=== PATIENT | female | born 1945 | race Caucasian/White ===

== ENCOUNTER 2020-07-03 09:05 | Emergency (ER) | payer MEDICARE, SELFPAY ==
--- NOTE | ~2020-07-03 | XR_ITS ---
EXAMINATION: XR finger 2nd LT min 2V DATE: 07/03/2020 09:34 INDICATION: Pain at the second metacarpophalangeal and proximal interphalangeal joints. TECHNIQUE: Dorsal palmar, lateral and 2 oblique views of the left second digit were obtained COMPARISON: None FINDINGS: Severe osteoarthritis with slight palmar subluxation at the second and third metacarpophalangeal join ts. There is moderate sized remote osteophytes at the heads of the second and third metacarpals which along with the atypical distribution at the second and third metacarpophalangeal joints can be seen with calcium pyrophosphate deposition (CPPD) disease. Additional advanced osteoarthritis at the first carpometacarpal joint with likely chronic slight dorsal subluxation of the first metacarpal with sec ondary remodeling at the base of the metacarpal. No fracture. Mild osteoarthritis at the triscaphe, m idcarpal, first metacarpophalangeal and second and third distal interphalangeal joints. IMPRESSION: 1. Polyarticular osteoarthritis, advanced at the first carpometacarpal joint and severe at the second and third metacarpophalangeal joints. Reviewed, dictated and finalized at location A. IMPRESSION: 1. Polyarticular osteoarthritis, advanced at the first carpometacarpal joint an d severe at the second and third metacarpophalangeal joints.
[2020-07-03 09:15] VITALS: BP 110/88; PULSE 62; RESP 18; TEMP 36.7; O2SAT 98
--- NOTE | 2020-07-03 09:20 | ED.UPPEXIN ---
HPI - Extremity Injury (Upper) General Chief Complaint: Extremity Injury, Upper Stated Complaint: pain in left pointer finger Time Seen by Provider: 07/03/20 09:37 Source: patient and RN notes reviewed Mode of arrival: ambulatory Limitations: no limitations History of Present Illness HPI narrative: 75-year-old female presents with concern for pain to the second digit of her left hand. She denies injury. Reports yesterday she was holding her phone with her hands flat when she suddenly had pain in the second digit. She reports the finger was immobile and stuck in a V position shortly after the pain started. She reports she is now able to bend her finger, however it hurts. complaint: injury to: left and finger Related Data Home Medications Medication Instructions Recorded Confirmed clonidine HCl 07/03/20 escitalopram oxalate mg 07/03/20 metoprolol succinate PO 07/03/20 omeprazole 07/03/20 rosuvastatin mg 07/03/20 tamoxifen mg 07/03/20 verapamil 07/03/20 Allergies Allergy/AdvReac Type Severity Reaction Status Date / Time morphine AdvReac Unknown Other Verified 07/03/20 09:26 NSAIDS (Non-Steroidal AdvReac Unknown Other Verified 07/03/20 09:26 Anti-Inflamma Contrast Media AdvReac Unknown Unknown Uncoded 07/03/20 09:26 Review of Systems Review of Systems: Narrative: CONSTITUTIONAL: Denies malaise, chills, sweats, or fever. CARDIOVASCULAR: Denies chest pain, palpitations, or edema. SKIN: Denies open skin MUSCULOSKELETAL: Reports pain, swelling, decreased range of motion in the second digit of the left hand NEUROLOGIC: Denies numbness, weakness. All systems reviewed & are unremarkable except as noted in HPI and below PMFSH Family History Family History (Updated 11/06/11 @ 08:47 by DOCTOR UNKNOWN) Other Family history of arthritis Family history of malignant neoplasm of urinary bladder Social History Social History Smoking status: Never smoker Alcohol intake: never Comments At time of signature, agree with nursing past medical, surgical, social and family history. There is no relevant family history pertinent to the presenting complaint Exam Narrative: Exam Narrative: GENERAL: Well-appearing, well-nourished, and in no acute distress. HEAD: Normocephalic EYES: PERRLA, conjunctivae clear NECK: Supple. CHEST: Speaks in full sentences. No respiratory distress. HEART: Regular rate and rhythm. Normal and equal peripheral pulses. EXTREMITIES: Second digit of left hand and digits of hand have normal strength and sensation. 4/5 strength with digit flexion, extension. Range of motion normal. No clubbing, cyanosis, or edema noted. No tenderness. Skin intact. Normal digital cascade with flexion of fingers, median, ulnar and radial nerve intact. Normal sensation of each side of finger. Can perform 'okay' sign, 'cross over finger test of index and middle fingers' and 'thumbs up' sign. No scissoring. Normal thumb opposition. Good capillary refill and radial pulse. Distal capillary refill <3 seconds. SKIN: Warn, dry, intact, pink. No rash NEURO: Alert and oriented x3. PSYCH: Normal mood and affect Course Course Emergency Course: Patient is aware of diagnosis, understands and agrees to treatment plan. Anticipatory guidance given. Patient agrees to follow-up as directed and is aware of reasons to seek care at the emergency department. Portions of this record may have been created with voice recognition software Vital Signs Vital signs: Vital Signs Temperature 98.1 F 07/03/20 09:15 Pulse Rate 62 07/03/20 09:15 Respiratory Rate 18 07/03/20 09:15 Blood Pressure 110/88 07/03/20 09:15 Pulse Oximetry 98 07/03/20 09:15 Temperature 98.1 F 07/03/20 09:15 Pulse Rate 62 07/03/20 09:15 Respiratory Rate 18 07/03/20 09:15 Blood Pressure 110/88 07/03/20 09:15 Pulse Oximetry 98 07/03/20 09:15 Reviewed. MDM - Extremity Injury (Upper) MDM Narrative Medical decision
--- NOTE | 2020-07-04 08:26 | ED.UPPEXIN ---
HPI - Extremity Injury (Upper) General Chief Complaint: Extremity Injury, Upper Stated Complaint: pain in left pointer finger Time Seen by Provider: 07/03/20 09:37 Source: patient and RN notes reviewed Mode of arrival: ambulatory Limitations: no limitations Related Data Home Medications Medication Instructions Recorded Confirmed clonidine HCl 0.2 mg PO BID 07/03/20 07/03/20 escitalopram oxalate 20 mg PO DAILY 07/03/20 07/03/20 metoprolol succinate 100 mg PO DAILY 07/03/20 07/03/20 omeprazole 40 mg PO DAILY 07/03/20 07/03/20 rosuvastatin 20 mg PO DAILY 07/03/20 07/03/20 tamoxifen 20 mg PO DAILY 07/03/20 07/03/20 verapamil 80 mg PO DIRECTED 07/03/20 07/03/20 Allergies Allergy/AdvReac Type Severity Reaction Status Date / Time morphine AdvReac Unknown Other Verified 07/03/20 09:26 NSAIDS (Non-Steroidal AdvReac Unknown Other Verified 07/03/20 09:26 Anti-Inflamma Contrast Media AdvReac Unknown Unknown Uncoded 07/03/20 09:26 Review of Systems Review of Systems: All systems reviewed & are unremarkable except as noted in HPI and below PMFSH Family History Family History (Updated 11/06/11 @ 08:47 by DOCTOR UNKNOWN) Other Family history of arthritis Family history of malignant neoplasm of urinary bladder Social History Social History Smoking status: Never smoker Alcohol intake: never Comments At time of signature, agree with nursing past medical, surgical, social and family history. There is no relevant family history pertinent to the presenting complaint Course Course Emergency Course: Patient is aware of diagnosis, understands and agrees to treatment plan. Anticipatory guidance given. Patient agrees to follow-up as directed and is aware of reasons to seek care at the emergency department. Portions of this record may have been created with voice recognition software Vital Signs Vital signs: Vital Signs Temperature 98.1 F 07/03/20 09:15 Pulse Rate 62 07/03/20 09:15 Respiratory Rate 18 07/03/20 09:15 Blood Pressure 110/88 07/03/20 09:15 Pulse Oximetry 98 07/03/20 09:15 Temperature 98.1 F 07/03/20 09:15 Pulse Rate 62 07/03/20 09:15 Respiratory Rate 18 08/26/20 09:15 Blood Pressure 110/88 07/03/20 09:15 Pulse Oximetry 98 07/03/20 09:15 Reviewed. Patient has been instructed to follow up with her primary care provider within the next week regarding her elevated blood pressure today. Critical Care Time Critical Care Time Critical Care Time: No Discharge Plan Discharge Clinical Impression: Osteoarthritis Patient Disposition: Home, Self-Care Condition: Stable Instructions: Osteoarthritis (ED) Additional Instructions: Avoid activities that cause pain until the pain subsides. Ice to the area 20-30 minutes 4-6 times a day Orthopedic splint as directed for comfort for the next 5-7 days Tylenol for lesser pain Follow up with your primary care provider if the condition is not improving within 1 week. If the condition worsens with numbness, tingling, decrease sensation with weakness seek treatment in the emergency room immediately. Prescriptions: No Action metoprolol succinate 100 mg tablet extended release 24 hr 100 mg PO DAILY RF: 0 omeprazole 40 mg capsule,delayed release(DR/EC) 40 mg PO DAILY RF: 0 clonidine HCl 0.2 mg tablet 0.2 mg PO BID RF: 0 verapamil 80 mg tablet 80 mg PO DIRECTED RF: 0 tamoxifen 20 mg tablet 20 mg PO DAILY RF: 0 escitalopram oxalate 20 mg tablet 20 mg PO DAILY RF: 0 rosuvastatin 20 mg tablet 20 mg PO DAILY RF: 0 Follow-up/Referrals: Phu,Hung Frazier MD [Primary Care Provider] - Time of Disposition: 09:51 Discharge Date/Time: 07/03/20 09:55
== END 2020-07-03 09:55 | disposition home or self-care (01) ==
PROVIDERS: Emergency Provider Nurse Practitioner; PCP Internal Medicine
DX: M18.12 Unilateral primary osteoarthritis of first carpometacarpal joint, left hand (principal); E78.00 Pure hypercholesterolemia, unspecified; I10 Essential (primary) hypertension; I34.1 Nonrheumatic mitral (valve) prolapse; K21.9 Gastro-esophageal reflux disease without esophagitis; Z96.652 Presence of left artificial knee joint; F41.9 Anxiety disorder, unspecified
CPT/HCPCS: 73140; 99213; G0463

== ENCOUNTER 2020-09-17 11:38 | Emergency (ER) | payer MEDICARE, SELFPAY ==
--- NOTE | ~2020-09-17 | XR_ITS ---
EXAMINATION: XR ribs LT 2V DATE: 09/17/2020 12:05 INDICATION: Left rib pain. TECHNIQUE: 3 views of the left ribs were obtained. COMPARISON: None. FINDINGS: There is no left-sided pneumonia, pleural effusion, or pneumothorax. The heart size is norm al. There is a large hiatal hernia. There is a left eighth rib fracture. IMPRESSION: 1. Age-indeterminate left eighth rib fracture. 2. Large hiatal hernia. Reviewed, dictated and finalized at location B. SOFTWARE TEST ENGINEER
[2020-09-17 11:44] VITALS: BP 106/78; PULSE 62; RESP 18; TEMP 36.2; O2SAT 100
--- NOTE | 2020-09-17 12:26 | ED.FALL ---
HPI - Fall General Chief Complaint: Fall Stated Complaint: FALL/RIB PAIN Time Seen by Provider: 09/17/20 12:14 Source: patient and RN notes reviewed Mode of arrival: ambulatory Limitations: no limitations History of Present Illness HPI Narrative: Patient presents today complaining of left anterior rib pain after she fell 1 foot down off a ladder at home 2 days ago. States she felt a pop at the time. Pain with movement. No increased pain with deep breath or coughing. Currently pain-free at rest, but pain can increase to 10/10 with movement. She took a dose of leftover Percocet at 130 this morning, which did help slightly. Denies shortness of breath or any additional symptoms. MD complaint: fall Related Data Home Medications Medication Instructions Recorded Confirmed clonidine HCl 0.2 mg PO BID 07/03/20 09/17/20 escitalopram oxalate 20 mg PO DAILY 07/03/20 09/17/20 metoprolol succinate 100 mg PO DAILY 07/03/20 09/17/20 omeprazole 40 mg PO DAILY 07/03/20 09/17/20 rosuvastatin 20 mg PO DAILY 07/03/20 09/17/20 tamoxifen 20 mg PO DAILY 07/03/20 09/17/20 verapamil 80 mg PO DIRECTED 07/03/20 09/17/20 albuterol sulfate 2 puff INHALATION Q4-6H PRN 09/17/20 09/17/20 Allergies Allergy/AdvReac Type Severity Reaction Status Date / Time morphine AdvReac Unknown Other Verified 09/17/20 11:53 NSAIDS (Non-Steroidal AdvReac Unknown Other Verified 09/17/20 11:53 Anti-Inflamma Contrast Media AdvReac Unknown Unknown Uncoded 09/17/20 11:53 Review of Systems Review of Systems: Narrative: CONSTITUTIONAL: Denies body aches, fever, chills, or sweats. EYES: Denies visual changes, redness, or discharge. ENT: Denies rhinorrhea, congestion, sore throat, or otalgia. CARDIOVASCULAR: Denies chest pain, palpitations, or edema. + Left rib pain RESPIRATORY: Denies cough or dyspnea. GASTROINTESTINAL: Denies abdominal pain, nausea, vomiting, or diarrhea. GENITOURINARY: Denies dysuria or hematuria. SKIN: Denies rash, itching, or wounds. MUSCULOSKELETAL: Denies back pain, joint pain, or myalgia. NEUROLOGIC: Denies headache, numbness, tingling, or weakness. PSYCH: Denies depression or anxiety. [facility] Past Medical History Medical History (Updated 09/17/20 @ 12:50 by Lucia Walker, [facility], ) Anxiety Arthritis Diverticulitis GERD (gastroesophageal reflux disease) Hypercholesterolemia Hypertension Mitral valve prolapse Sleep apnea Surgical History Surgical History (Updated 09/17/20 @ 12:50 by Lucia Walker, [facility], ) H/O tubal ligation History of total left knee replacement Family History Family History (Updated 11/06/11 @ 08:47 by DOCTOR UNKNOWN) Other Family history of arthritis Family history of malignant neoplasm of urinary bladder Social History Social History Smoking status: Never smoker Alcohol intake: never Comments At time of signature, I have reviewed and agree with nursing past medical, surgical, social and family history unless otherwise noted. Please see nursing chart for further information. There is no relevant family history pertinent to the presenting complaint Exam Narrative: Exam Narrative: GENERAL: Well-appearing, well-nourished, and in no acute distress. HEAD: Normocephalic, atraumatic. EYES: EOMI. No redness or drainage. Conjunctivae normal. ENT: Mucous membranes pink and moist. NECK: Normal AROM. CHEST: No respiratory distress. Clear to auscultation. Point tenderness to left anterior ribs, just under left breast. No edema or crepitus noted. HEART: Regular rate and rhythm. No murmur appreciated. Normal peripheral pulses. ABDOMEN: Soft, nontender, nondistended, normal active bowel sounds. MUSCULOSKELETAL: No bony tenderness. EXTREMITIES: Normal range of motion. No edema. SKIN: Warm, dry, no rash. Capillary refill normal. Normal skin turgor. NEURO: No focal deficits. Alert and oriented x3. Gait steady. PSYCH: Normal affect. No signs of depression or anxiety. Course Vital
== END 2020-09-17 12:35 | disposition home or self-care (01) ==
PROVIDERS: Emergency Provider Nurse Practitioner; PCP Internal Medicine
DX: S22.32XA Fracture of one rib, left side, initial encounter for closed fracture (principal); W11.XXXA Fall on and from ladder, initial encounter; F41.9 Anxiety disorder, unspecified; M19.90 Unspecified osteoarthritis, unspecified site; K21.9 Gastro-esophageal reflux disease without esophagitis; E78.00 Pure hypercholesterolemia, unspecified; I10 Essential (primary) hypertension; I34.1 Nonrheumatic mitral (valve) prolapse; G47.30 Sleep apnea, unspecified; Z96.652 Presence of left artificial knee joint
CPT/HCPCS: 71100; 99213; G0463

== ENCOUNTER → 2021-11-05 10:20 | Outpatient (CLI) | payer MEDICARE, SELFPAY ==
--- NOTE | ~2021-11-05 | XR_ITS ---
EXAMINATION: XR hip RT min 2V DATE: 11/05/2021 10:42 INDICATION: Right hip pain. TECHNIQUE: 2 views of right hip were obtained. COMPARISON: Pelvis and right hip radiographs 01/23/2021 FINDINGS: Bone alignment is normal. No fracture. There is severe right hip osteoarthritis. There is s evere lumbar spondylosis. IMPRESSION: 1. Severe right hip osteoarthritis. Reviewed, dictated and finalized at location B. TRAILER FILLER
== END ==
PROVIDERS: Visit Provider Physician Assistant
DX: M16.11 Unilateral primary osteoarthritis, right hip (principal)
CPT/HCPCS: 73502

== ENCOUNTER 2021-12-22 11:57 | Emergency (ER) | payer MEDICARE, SELFPAY ==
[2021-12-22 12:02] VITALS: BP 130/80; PULSE 60; RESP 20; TEMP 36.3; O2SAT 100
--- NOTE | 2021-12-22 12:13 | ED.EAR ---
HPI - Ear Problem General Chief complaint: Urogenital-Female Stated complaint: poss ear infection Time Seen by Provider: 12/22/21 12:14 Source: patient History of Present Illness HPI Narrative: Patient presents with right ear pain. Patient states she has a history of fluid behind her ears denies any hearing loss, no drainage from her ear no dizziness. Patient denies any other symptoms. Related Data Home Medications Medication Instructions Recorded Confirmed clonidine HCl 0.2 mg PO BID 07/03/20 12/22/21 escitalopram oxalate 20 mg PO DAILY 07/03/20 12/22/21 metoprolol succinate 100 mg PO DAILY 07/03/20 12/22/21 omeprazole 40 mg PO DAILY 07/03/20 12/22/21 rosuvastatin 20 mg PO DAILY 07/03/20 12/22/21 tamoxifen 20 mg PO DAILY 07/03/20 12/22/21 verapamil 80 mg PO DIRECTED 07/03/20 12/22/21 Allergies Allergy/AdvReac Type Severity Reaction Status Date / Time morphine AdvReac Unknown Other Verified 12/22/21 12:09 NSAIDS (Non-Steroidal AdvReac Unknown Other Verified 12/22/21 12:09 Anti-Inflamma Contrast Media AdvReac Unknown Unknown Uncoded 12/22/21 12:09 Review of Systems Review of Systems: CONSTITUTIONAL: Denies fever, chills, or sweats. EYES: Denies visual changes, redness, or discharge. ENT: Denies rhinorrhea, congestion, sore throat, or otalgia. CARDIOVASCULAR: Denies chest pain, palpitations, or edema. RESPIRATORY: Denies cough or dyspnea. GASTROINTESTINAL: Denies abdominal pain, nausea, vomiting, or diarrhea. GENITOURINARY: Denies dysuria or hematuria. SKIN: Denies rash or itching. MUSCULOSKELETAL: Denies back pain, joint pain, or myalgia. NEUROLOGIC: Denies headache, numbness, or weakness. PSYCHIATRIC: Denies anxiety or depression. [facility] Past Medical History Medical History (Updated 12/22/21 @ 12:19 by ALE Sanders) Anxiety Arthritis Arthritis of right hip Diverticulitis GERD (gastroesophageal reflux disease) Hypercholesterolemia Hypertension Mitral valve prolapse Sleep apnea Surgical History Surgical History (Updated 06/16/21 @ 11:30 by Ari Potts MD) H/O tubal ligation History of total left knee replacement Family History Family History Other Family history of arthritis Family history of malignant neoplasm of urinary bladder Social History Social History Smoking status: Never smoker Alcohol intake: never Comments At time of signature, agree with nursing past medical, surgical, social and family history. There is no relevant family history pertinent to the presenting complaint Exam Narrative: GENERAL: Well-appearing, well-nourished, and in no acute distress. HEAD: Normocephalic, atraumatic. EYES: PERRLA and EOMI. ENT: Nares clear, no rhinorrhea or epistaxis. Mucous membranes moist.right ear pain. erythema to canal bulging tn left tm intact good light reflex NECK: Supple. CHEST: Clear to auscultation. No respiratory distress. HEART: Regular rate and rhythm. No murmur heard. Normal peripheral pulses. ABDOMEN: Soft, nontender, nondistended, normal active bowel sounds. EXTREMITIES: Normal range of motion. No edema. SKIN: Warm, dry, no rash. NEURO: No focal deficits. Alert and oriented x3. Jean Coma Scale Eye Opening: Spontaneous 4 [place] Coma Scale Motor: Obeys Commands 6 [place] Coma Scale Verbal: Oriented 5 [place] Coma Scale Total 15 Course Course Level of Care: Express Care Visit Vital Signs Vital signs: Vital Signs Temperature 36.3 C L 12/22/21 12:02 Pulse Rate 60 12/22/21 12:02 Respiratory Rate 20 12/22/21 12:02 Blood Pressure 130/80 12/22/21 12:02 Pulse Oximetry 100 12/22/21 12:02 Temperature 36.3 C L 12/22/21 12:02 Pulse Rate 60 12/22/21 12:02 Respiratory Rate 20 12/22/21 12:02 Blood Pressure 130/80 12/22/21 12:02 Pulse Oximetry 100 12/22/21 12:02 Addressed elevated BP today. Today's blood
== END 2021-12-22 12:20 | disposition home or self-care (01) ==
PROVIDERS: Emergency Provider Nurse Practitioner Family; PCP Internal Medicine
DX: H66.91 Otitis media, unspecified, right ear (principal); K21.9 Gastro-esophageal reflux disease without esophagitis; E78.00 Pure hypercholesterolemia, unspecified; I10 Essential (primary) hypertension; I34.1 Nonrheumatic mitral (valve) prolapse; G47.30 Sleep apnea, unspecified; M16.11 Unilateral primary osteoarthritis, right hip; Z96.643 Presence of artificial hip joint, bilateral
CPT/HCPCS: 99213; G0463

== ENCOUNTER 2022-02-13 16:38 | Emergency (ER) | payer MEDICARE, SELFPAY ==
--- NOTE | ~2022-02-13 | CT_ITS ---
EXAMINATION: CT abdomen pelvis wo con DATE: 02/13/2022 17:11 INDICATION: Abdominal pain TECHNIQUE: Computed tomography (CT) of the abdomen and pelvis was performed without intravenous contr ast. Automated exposure control and iterative reconstruction technique were employed. The dose-length product was 1409.57 mGy-cm. COMPARISON: None FINDINGS: Mild emphysema at the lung bases. Heart size is normal. Mild atherosclerotic coronary artery calcific ation. Aortic valve calcific location. No pericardial or pleural effusion. Moderate-sized sliding-typ e hiatal hernia. Diffuse hepatic steatosis with focal sparing along the gallbladder fossa. Severe rig ht renal atrophy. Bilateral renal cysts measuring 1.6 cm on the right and 2.3 cm on the left. Pancrea s, spleen and bilateral adrenal glands are normal. There is mild to moderate scattered colonic divert iculosis with a sigmoid predominance. There is no adjacent inflammatory change to suggest diverticul itis. Small bowel and appendix are normal. Bladder is normal. The uterus is not identified and has li jaskaran been surgically resected. No free intraperitoneal gas or fluid. No pathologically enlarged abdom inal or pelvic lymphadenopathy. There is calcified atherosclerosis of the aorta and many of the other arteries. Chronic appearing T11 compression fracture with 20% anterior vertebral body height loss an d with prominent Schmorl's node at the central aspect of the superior endplate. Severe lumbar and low er thoracic spondylosis. IMPRESSION: 1. No acute intra-abdominal/pelvic process. 2. Moderate-sized sliding-type hiatal hernia. 3. Diffuse hepatic steatosis. 4. Severe right renal atrophy. 5. Diverticulosis. Reviewed, dictated and finalized at location B.
[2022-02-13 16:44] VITALS: BP 144/108; PULSE 81; RESP 18; TEMP 37.5; O2SAT 95
[2022-02-13 17:29] LABS: Basophils Absolute Auto 0.1 K/mm3 (0.0-0.1); Basophils Percent Auto 0.4 % (0.2-1.2); Eosinophils Absolute Auto 0.3 K/mm3 (0-0.3); Eosinophils Percent Auto 2.2 % (0-4.4); Hemoglobin 13.2 g/dL (12.0-15.0); Immature Granulocyte Absolute 0.03 K/mm3 (0.00-0.031); Immature Granulocyte Percent A 0.3 % (0-0.5); Lymphocytes Absolute Auto 1.03 K/mm3 (0.9-3.2); Lymphocytes Percent Auto 8.8 % (18.3-44.2); Mean Corpuscular Hemoglobin 32.7 pg (26-34); Mean Platelet Volume 8.9 fl (7.4-10.4); Monocytes Absolute Auto 0.8 K/mm3 (0.1-0.6); Monocytes Percent Auto 7.1 % (2.6-8.5); Neutrophils Absolute Auto 9.5 K/mm3 (1.3-6.7); Neutrophils Percent Auto 81.2 % (45.5-73.1); Platelet Count Result 167 k/mm3 (150-375); Red Blood Count 4.04 M/mm3 (4.2-5.4); Red Cell Distribution Width 12.9 % (11.5-14.5); White Blood Count 11.7 K/mm3 (4.5-10.0)
[2022-02-13 17:51] LABS: Add Urine Microscopic? YES; Appearance Urine Cloudy (Clear); Bacteria Urine 2+ /hpf; Bilirubin Urine Negative (Negative); Color Urine Yellow (Yellow); Glucose Urine UA Negative (Negative); Ketones Urine Trace mg/dL (Negative); Leukocyte Esterase Ur 3+ LEU/UL (Negative); Mucus Urine Rare /lpf; Nitrate Urine Positive (Negative); Protein Urine Negative (Negative); Specific Grav Ur 1.015 (1.001-1.035); Squamous Epithelial Cell Urine Many /hpf (Few); Urobilinogen Urine Negative mg/dL (<2.0); WBC Urine >75 /hpf
[2022-02-13 17:57] LABS: Blood Urine Negative (Negative)
[2022-02-13] MEDS: CEPHALEXIN 500 MG CAPSULE PO (18:15)
[2022-02-13 18:23] LABS: Alanine Aminotransferase 22 U/L (4-35); Alkaline Phosphatase 73 U/L (38-126); Anion Gap 8 mmol/L (8-16); Aspartate Amino Transferase 36 U/L (14-36); Bilirubin,Total 0.4 mg/dL (0.2-1.3); Blood Urea Nitrogen 18 mg/dL (7-17); Calcium 8.4 mg/dL (8.4-10.2); Carbon Dioxide 26 mmol/L (22-30); Chloride 105 mmol/L (98-107); Estimated CRCL calculation 49 ml/min; Estimated Glomerular Filt Rate 48; Glucose 91 mg/dL (65-110); Lipase 154 U/L (23-300); Potassium 4.1 mmol/L (3.4-5.0); Sodium 139 mmol/L (137-145)
--- NOTE | 2022-02-13 18:31 | ED.GENADULT ---
HPI - General Adult General Chief complaint: Abdominal Pain Stated complaint: impacted Time Seen by Provider: 02/13/22 16:49 History of Present Illness HPI narrative: Patient presents emergency department from home for constipation. Patient states she has not had a bowel movement for the past 4 days. States she has a feeling that she has pressure like she needs to go to the bathroom but has not had a bowel movement she denies having abdominal pain. She denies any fevers or chills nausea vomiting diarrhea or any other symptoms. States she feels like she may need an enema. She states that she does have MiraLAX at home but has not been taking it does states she has a history of hemorrhoids Related Data Home Medications Medication Instructions Recorded Confirmed clonidine HCl 0.2 mg PO BID 07/03/20 01/01/22 escitalopram oxalate 20 mg PO DAILY 07/03/20 01/01/22 metoprolol succinate 100 mg PO DAILY 07/03/20 01/01/22 omeprazole 40 mg PO DAILY 07/03/20 01/01/22 rosuvastatin 20 mg PO DAILY 07/03/20 01/01/22 tamoxifen 20 mg PO DAILY 07/03/20 01/01/22 verapamil 80 mg PO DIRECTED 07/03/20 01/01/22 Allergies Allergy/AdvReac Type Severity Reaction Status Date / Time morphine AdvReac Unknown Other Verified 12/31/21 13:36 NSAIDS (Non-Steroidal AdvReac Unknown Other Verified 12/31/21 13:36 Anti-Inflamma Contrast Media AdvReac Unknown Unknown Uncoded 12/22/21 12:09 Review of Systems Review of Systems: Gen.: Denies fevers or chills ENT: Denies congestion Respiratory: Denies shortness of breath or cough CV: Denies chest pain or palpitations GI: Denies abdominal pain nausea, emesis or diarrhea reports constipation denies burning, urgency, frequency or hematuria Musculoskeletal: Denies back pain or muscle pain Neuro: Denies numbness, tingling, weakness or focal weakness Skin: Denies rash Except as documented, all other systems reviewed and negative [facility] Past Medical History Medical History Anxiety Arthritis Arthritis of right hip Diverticulitis GERD (gastroesophageal reflux disease) Hypercholesterolemia Hypertension Mitral valve prolapse Sleep apnea Surgical History Surgical History H/O tubal ligation History of total left knee replacement Family History Family History Other Family history of arthritis Family history of malignant neoplasm of urinary bladder Social History Social History Smoking status: Never smoker Alcohol intake: never Exam Narrative: APPEARANCE: No acute distress, nontoxic, resting in bed EYES: EOMI HEENT: Normocephalic, atraumatic, OMM RESPIRATORY: No respiratory distress Clear to auscultation bilaterally with no rhonchi wheezing or rales. CARDIOVASCULAR: Regular rate and rhythm without murmurs rubs or gallops. ABDOMINAL: Soft, nontender, nondistended, no rebound or guarding Rectal: Several large hemorrhoids present with no active bleeding, minimal stool felt in rectal vault no fullness or fluctuance MUSCULOSKELETAl: Moves all extremities. No clubbing, cyanosis or edema. NEURO: Awake and alert. Following commands, speech normal, no focal deficits SKIN:: Warm, dry. No rashes lesions or abrasions PSYCHIATRIC: Normal affect/mood, Course Course Emergency Course: Reviewed with radiology no abnormality of rectum Discussed with patient results of workup and diagnosis. Discussed need for follow-up with primary care, proper use of medication, and reasons to return to the emergency department. Patient understands and agrees to current treatment plan Vital Signs Vital signs: Vital Signs Temperature 99.5 F 02/13/22 16:44 Pulse Rate 81 02/13/22 16:44 Respiratory Rate 18 02/13/22 16:44 Blood Pressure 144/108 H 02/13/22 16:44 Pulse Oximetry 95 02/13/22 16:44
== END 2022-02-13 18:50 | disposition home or self-care (01) ==
PROVIDERS: Emergency Provider Emergency Medicine; PCP Internal Medicine
DX: K59.00 Constipation, unspecified (principal); N39.0 Urinary tract infection, site not specified; K21.9 Gastro-esophageal reflux disease without esophagitis; E78.00 Pure hypercholesterolemia, unspecified; I10 Essential (primary) hypertension; I34.1 Nonrheumatic mitral (valve) prolapse; G47.30 Sleep apnea, unspecified; M16.11 Unilateral primary osteoarthritis, right hip; F41.9 Anxiety disorder, unspecified; Z96.652 Presence of left artificial knee joint; K57.90 Diverticulosis of intestine, part unspecified, without perforation or abscess without bleeding; N26.1 Atrophy of kidney (terminal); K76.0 Fatty (change of) liver, not elsewhere classified; K44.9 Diaphragmatic hernia without obstruction or gangrene
CPT/HCPCS: 36415; 74176; 80053; 81001; 83690; 85025; 87077; 87086; 87186; 99284; A9270

== ENCOUNTER → 2022-09-10 10:26 | Outpatient (CLI) | payer MEDICARE, SELFPAY ==
--- NOTE | ~2022-09-10 | XR_ITS ---
XR abdomen/kub 1V 09/10/2022 10:39 Indication: Left renal mass Procedure: KUB Comparison: No prior studies for comparison. Findings: There is fecal impaction of the colon. No evidence for bowel obstruction. No abnormal calci fications. There is severe lumbar spondylosis. No acute osseous abnormality. There is osteoarthritis of the hips, right greater than left. Impression: 1: Fecal impaction of the colon. Reviewed, dictated and finalized at location A. Impression: 1: Fecal impaction of the colon.
--- NOTE | ~2022-09-10 | CT_ITS ---
EXAMINATION: CT abdomen pelvis wo con DATE: 09/10/2022 10:53 INDICATION: Left renal mass. Status post right nephrectomy. TECHNIQUE: Computed tomography (CT) of the abdomen and pelvis was performed without intravenous contr ast (due to renal impairment). Automated exposure control and iterative reconstruction technique were employed. Exam dose: 1022.31 mGy-cm total exam DLP. COMPARISON: 09/27/2022 KUB 02/13/[address] abdomen pelvis FINDINGS: Moderate emphysema. Small calcified lateral basilar left lower lobe pulmonary granuloma. No infiltrate or consolidation at the lung bases. Normal heart size. No pericardial or pleural effusion. Moderately large sliding hiatal hernia. There is hepatic steatosis. No hepatic, splenic, pancreatic or right adrenal space-occupying mass les ion is detected. Approximately 8.2 x 11 mm stable left adrenal soft tissue mass, likely a small adenoma. There is severe right renal diffuse atrophy. 0.6 cm exophytic right renal cyst. 1 cm exophytic anterior upper pole left renal probable cyst with attenuation of 10 Hounsfield units. 1.7 cm lower pole left renal probable cyst. Examination of the kidneys is limited due to the absence of intravenous contrast material. No urinary tract calculus or hydroureteronephrosis. The urinary bladder is relatively evacuated. Status post hysterectomy. There is atherosclerotic calcification but normal caliber of the abdominal aorta and iliac arteries. No intraperitoneal or retroperitoneal or pelvic mass lesion or adenopathy or ascites. Diverticulosis of left and right colon; no CT evidence of diverticulitis. No bowel obstruction, bowel wall thickening, pneumatosis or intraperitoneal free air. Severe degenerative disc disease throughout the lumbar spine and degenerative change of the lower tho racic spine. Mild to moderate T11 anterior wedge compression fracture deformity, stable since 2 Bilateral hip osteoarthritis, particularly severe on the right. No suspicious osteolytic or osteoblas tic lesions are noted. IMPRESSION: Severe diffuse right renal atrophy Bilateral renal cysts Hepatic steatosis Status post hysterectomy Probable large hiatal hernia Diverticulosis of left and right colon; no CT evidence of diverticulitis Reviewed, dictated and finalized at [facility]. Reviewed, dictated and finalized at [facility].
== END ==
PROVIDERS: PCP Physician Assistant; Visit Provider Nurse Practitioner Adult Health
DX: N28.89 Other specified disorders of kidney and ureter (principal); N28.1 Cyst of kidney, acquired; K76.0 Fatty (change of) liver, not elsewhere classified; K57.30 Diverticulosis of large intestine without perforation or abscess without bleeding
CPT/HCPCS: 74018; 74176

== ENCOUNTER 2025-10-26 12:49 | Emergency (ER) | payer MEDICARE, SELFPAY ==
--- OUTSIDE RECORDS SUMMARY | 2025-10-25 11:00 | XMS_ITS | Encounter Summary ---
Author Organization [facility] Healthcare Address [address] [place] [address] Care Team Providers Care Music Ministries Director Name Role Phone Ismael De La Cruz Primary Care Provider Nicholas Aguilera MD Unavailable Jurgen Maldonado MD Unavailable [phone] Emma Sheridan MD Unavailable Mariela Gonzalez MD Unavailable Dejan Wood DPM Unavailable [phone] Randal Hurst MD Unavailable [phone] Lauren Warren MD Unavailable [phone] Kalpana Sepulveda MD Unavailable Reason for Visit * Consultation (Routine) - Authorized Specialty Diagnoses / Procedures Referred By Contac t Referred To Contact Neurology Diagnoses FRANCISCO (obstructive sleep apnea) Ismael De La Cruz PA 2 [facility] [address] [place] [address] Phone: tel: fax: Mariela Gonzalez MD 4 [facility] [address] CRISTIN Lackey [facility] [address] [place] [address] Phone: tel: fax: Referral ID Status Reason Start Date Expiration Date Visits Requested Visits Authorized [id number] Authorized Specialty Services Required 5 11/21/2026 4 4 Encounter Details Date Type Department Care Team (Merry st Contact Info) Description 10/25/2025 11:00 AM [employer] Office Visit [facility] [address] [facility] [address] [place] [address] Mariela Gonzalez MD 4 [facility] [address] AMARAL B LEIGHANN [address] [place] [address] FRANCISCO (obstructive sleep apnea) (Primary Dx); Hypersomnia with sleep apnea; Morbid obesity with BMI of 40.0-44.9, adult ([facility]) Social History Tobacco Use Types Packs/Day Years Used Date Smoking Tobacco: Former Cigarettes 3 48 1 960 - 2007 Smokeless Tobacco: Never Tobacco Cessation:Counseling Given: Not Answered Alcohol Use Standard Drinks/Week Comments Never 0 (1 standard drink = 0.6 oz pur e alcohol) PHQ-2 Answer Date Recorded PHQ-2 Total Score (If total score is 3 or more points, staff should administer the PHQ-9) 0 06/19/2025 AUDIT-C Answer Date Recorded Q1: How often do you have a drink containing alcohol? Never 06/19/2025 Q2: How many drinks containi ng alcohol do you have on a typical day when you are drinking? Patient does not drink Q3: How often do you have si x or more drinks on one occasion? Never 06/19/2025 Personal Safety Answer Date Recorded Have you ever been in or are you currently in a harmful physical or emotional relationship or is someone making you feel afraid or unsafe? 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 Not on file Not on file Not on file documented as of this encounter Last Filed Vital Signs Vital Sign Reading Time Taken Comments Blood Pressure 111/94 10/25/2025 11:09 AM [employer] Pulse 66 10/25/2025 11:09 AM [employer] Temperature - - Respiratory Rate - - Oxygen Saturation 95% 10/25/2025 11:09 AM [employer] Inhaled Oxygen Concentration - - Weight 120.2 kg (265 lb) 10/25/2025 11:09 AM [employer] Height 160 cm (5' 2.99) 10/25/2025 11:09 AM [employer] Body Mass Index 46.95 10/25/2025 11:09 AM [employer] documented in this encounter Progress Notes * Mariela Gonzalez MD - 10/25/2025 11:00 AM CST 1. Moderate obstructive sleep apnea syndrome: Ms. Jack presents for follow-up evaluation regarding her above condition. She is a very pleasant 79-year-old with a obstructive sleep disorder breathing on automatic positive therapy 7-12 cm. Endorses compliance with therapy. Recently her machine stopped working. She has been unable to utilize therapy for a few weeks. She finally got a new cord. Now she has gone back to utilizing therapy. She goes to bed at 8:30 a.m.-9:00 p.m. and awakens at 7:00a.m.. Awakens rested. No intolerance to pressure or mask. 2. Hypersomnia: Endorses stability symptoms.. [place] Sleepiness scale score is 3. 3. Morbid obesity: Stable weight since last visit. Physical Exam BP 111/94 Pulse 66 Ht 160 cm (5' 2.99) Wt 120.2 kg (265 lb) LMP (LMP Unknown) SpO2 95% BMI 46.95 kg/m?? Constitutional: oriented to person, place, and time. Appears well-developed and well-nourished. HENT: Head: Normocephalic and atraumatic. Mouth/Throat: Oropharynx is clear and moist. Eyes: Conjunctivae and EOM are normal. eye exhibits no discharge. No scleral icterus. Neck: Normal range of motion. Neck supple. No thyromegaly present. Cardiovascular: Normal rate, regular rhythm and normal heart sounds. Exam reveals no gallop and no friction rub. No murmur heard. Pulmonary/Chest: Effort normal and breath sounds normal. No respiratory distress. has no wheezes. has no rales. Exhibits no tenderness. Abdominal: Soft. exhibits no distension and no mass. There is no tenderness. Musculoskeletal: Normal passive range of movements; no muscle tenderness Neurological: Alert and oriented to person, place, and time. No cranial nerve deficit. Exhibits normal muscle tone. Skin: Skin is warm. No rash noted. No erythema. Psychiatric: normal mood and affect. Judgment normal. AP 1. Moderate Obstructive sleep apnea syndrome: Endorses continued compliance with positive pressure therapy. Compliance download reveals compliance and effective therapy. Advised to continue compliance therapy.. The physiology of sleep disordered breathing and its increased association with hypertension, diabetes, heart arrhythmia, strokes, heart attacks, heart failure, hypersomnia, obesity and mood disorders was discussed. Verbalizes understanding. Compliance download from 09/25/2025-10/24/2024 was reviewed. 100% usage when able to usage. Averaging 12 hours and 20 minutes of therapy. Residual 2.0. 2. Hypersomnia with sleep apnea: Stable and well controlled. Continue to monitor 3. Morbid obesity: Stable weight since last visit. The effects of obesity obstructive sleep apnea syndrome and other morbidities was discussed. Recommended diet and exercise in losing weight. Patientverbalizes an understanding. 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 Morbid obesity with BMI of 40.0-44.9, adult (HCC) documented in this encounter Discontinued Medications Medication Sig Discontinue Reason Start Date End Da te Gemtesa 75 mg tablet Take 1 tablet by mouth daily 10/20/2023 10/25/2025 documented as of this encounter Orders Outpatient Referral Count Last Ordered Date Fir st Ordered Date AMB REFERRAL TO NEUROLOGY 1 10/25/2025 documented in this encounter Care Teams Music Ministries Director Relationship Specialty Start Date End Date Ismael De La Cruz PA 2 [facility] [address] [facility] [place] [address] PCP - General Internal Medicine 07/19/22 [place] [address] [address] [facility] [address] [place] [address] Consulting Physician Pain Management 2/9/24 Jurgen Maldonado MD 2 [facility] [address] [place] [address] Consulting Physician Nephrology 04/18/24 [place] [address] [place] [address] Consulting Physician Urology 04/18/24 [place] [address] [place] [address] Consulting Physician Neurology 04/18/24 Dejan Wood DPM [address] [facility] [place] [address] Consulting Physician Orthotics 04/18/24 Randal Hurst MD [address] [facility] [place] [address] Referring Physician Hematology and Oncology 04/18/24 Lauren Warren MD [address] [facility] [address], [place] [address] Consulting Physician General Surgery 04/18/24 Kalpana Sepulveda MD [address] [place] [address] Security Public Safety Officer Obstetrics and Gynecology 04/18/24 documented as of this encounter
--- NOTE | ~2025-10-26 | XR_ITS ---
EXAMINATION: XR hand LT min 3V, 10/26/2025 13:50 MACHINE PACKAGING TECHNICIAN HISTORY: pain, bruising, swelling, fall, 2 days COMPARISON: No comparisons available. Findings: No acute fracture or malalignment. Severe degenerative changes of the distal interphalangeal joints, the second. Metacarpal phalangeal joints of the first metacarpal carpal joint with small erosions. Soft tissue swelling. Impression: No acute fracture or malalignment. Reviewed, dictated and finalized at location P. INE PACKAGING TECHNICIAN Impression: No acute fracture or malalignment.
--- NOTE | ~2025-10-26 | XR_ITS ---
EXAMINATION: XR wrist LT min 3V, 10/26/2025 13:50 STUDENT SERVICES REPRESENTATIVE HISTORY: pain, swelling, bruising 2 days, fall COMPARISON: No comparisons available. Findings: Questionable nondisplaced fracture of the mid scaphoid. Severe degenerative changes of the first metacarpal carpal joint. Soft tissue swelling. Impression: Mid scaphoid fracture. CT suggested Reviewed, dictated and finalized at location P. ENT SERVICES REPRESENTATIVE Impression: Mid scaphoid fracture. CT suggested
--- OUTSIDE RECORDS SUMMARY | 2025-10-26 12:52 | XMS_ITS | Encounter Summary ---
Author Organization [facility] Address [address] [place] [address] Phone Care Team Providers Care Pattern Shop Supervisor Name Role Phone Hung Bay MD Primary Care Provider Unavaila ble Reason for Visit * Reason Comments Medication Refill Encounter Details Date Type Department Care Team (Late st Contact Info) Description 06/06/2023 Refill [facility] Oncology Services [address] [place] [phone] Randal Hurst MD [address] [place], [place] [id number] Medication Refill Social History Tobacco Use Types Packs/Day Years Used Date Smoking Tobacco: Former Cigarettes 3 55 Smokeless Tobacco: Never Alcohol Use Standard Drinks/Week Comments Yes 0 (1 standard drink = 0.6 oz pur e alcohol) Comments No Sex and Gender Information Value Date Recorded Sex Assigned at Not on file Legal Sex Female 11:57 PM CDT Gender Identity Not on file Sexual Orientation Not on file COVID-19 Exposure Response Date Recorded In the last 10 days, have yo u been in contact with someone who was confirmed or suspected to have Coronavirus/COVID-19? No / Unsure 05/25/2023 10:23 AM CDT documented as of this encounter Miscellaneous Notes * Telephone Encounter - Maris Rios RN - 06/07/2023 2:31 PM CDT Refilled Tamoxifen per last f/u note documented in this encounter Plan of Treatment Upcoming Encounters Date Type Department Care Team (Late st Contact Info) Description 07/31/2026 1:00 PM CDT Office Visit [facility] Oncology Services [address] [place] [address] [place] [address] [place] [address] documented as of this encounter Visit Diagnoses Diagnosis Breast neoplasm, Tis (LCIS), unspecified laterality documented in this encounter Care Teams Pattern Shop Supervisor Relationship Specialty Start Date End Date Hung Bay MD 2 [facility] [address] [address] PCP - General Internal Medicine 12/31/15 documented as of this encounter
--- OUTSIDE RECORDS SUMMARY | 2025-10-26 12:52 | XMS_ITS | Encounter Summary ---
Author Organization [facility] Address [address] [place] [address] Phone Care Team Providers Care Solderer Assembler Name Role Phone Hung Bay MD Primary Care Provider Unavaila ble Reason for Visit * Reason Comments Medication Refill Encounter Details Date Type Department Care Team (Late st Contact Info) Description 02/17/2024 Refill [facility] Oncology Services [address] [place] [phone] Randal Hurst MD [address] [place], [place] [id number] Medication Refill Social History Tobacco Use Types [...] on file Sexual Orientation Not on file documented as of this encounter Miscellaneous Notes * Telephone Encounter - Maris Rios RN - 02/17/2024 10:25 AM CDT Refilled Tamoxifen per last Aris f/u note. documented in this encounter Plan of Treatment Upcoming Encounters Date Type Department Care Team (Late st Contact Info) Description 07/31/2026 1:00 PM CDT Office Visit [facility] Oncology Services [address] [place] [phone] [place] [address] [place] [address] documented as of this encounter Visit Diagnoses Diagnosis Breast neoplasm, Tis (LCIS), unspecified laterality documented in this encounter Care Teams Solderer Assembler Relationship Specialty Start Date End Date Hung Bay MD [address] [address] PCP - General Internal Medicine 12/31/15 documented as of this encounter
--- OUTSIDE RECORDS SUMMARY | 2025-10-26 12:52 | XMS_ITS | Encounter Summary ---
Author Organization [facility] Address [address] [place] [address] Phone Care Team Providers Care Hepatology Physician Name Role Phone Hung Bay MD Primary Care Provider Miguel león Encounter Details Date Type Department Care Team (Late st Contact Info) Description 05/28/2023 Telephone [facility] Oncology Services [address] [place] [address] Randal Hurst MD [address] [place] [address] Social History Tobacco Use Types Packs/Day Years [...] encounter Miscellaneous Notes * Telephone Encounter - Lisa Araiza - 05/28/2023 10:10 AM CDT The patient called to inquire about her recent ultrasound completed on her legs. Per doctor's correspondence noted in the patient's chart I informed the patient that an arterial doppler was not recommended at this time due to no sign of DVT. I informed the patient that the doctor does advise she start wearing compression socks to manage the swelling of her legs. I also asked her to please contactour office with any further questions or concerns. documented in this encounter Plan of Treatment Upcoming Encounters Date Type Department Care Team (Late st Contact Info) Description 07/31/2026 1:00 PM CDT Office Visit [facility] Oncology Services [address] [place] [address] Randal Hurst MD [address] [place] [address] documented as of this encounter Visit Diagnoses Not on filedocumented in this encounter Care Teams Hepatology Physician Relationship Specialty Start Date End Date Hung Bay MD 2 [facility] [address] [place] [address] PCP - General Internal Medicine 12/31/15 documented as of this encounter
--- OUTSIDE RECORDS SUMMARY | 2025-10-26 12:53 | XMS_ITS | Encounter Summary ---
Author Organization [facility] Address [address] [place] [address] Phone Care Team Providers Care Hobbing Press Operator Name Role Phone Hung Bay MD Primary Care Provider Unavaila ble Reason for Visit * Reason Comments Medication Refill Encounter Details Date Type Department Care Team (Late st Contact Info) Description 07/15/2021 Refill [facility] Oncology Services [address] [place] [phone] Randal Hurst MD [address] [place] [address] Medication Refill Social History Tobacco Use Types [...] encounter Miscellaneous Notes * Telephone Encounter - Génesis Fontana RN - 07/15/2021 5:14 PM CDT Refilled Tamoxifen next f/u on 04/28/22 documented in this encounter Plan of Treatment Upcoming Encounters Date Type Department Care Team (Late st Contact Info) Description 07/31/2026 1:00 PM CDT Office Visit [facility] Oncology Services [address] [place] [address] Randal Hurst MD [address] [place] [address] documented as of this encounter Visit Diagnoses Diagnosis Breast neoplasm, Tis (LCIS), unspecified laterality documented in this encounter Care Teams Hobbing Press Operator Relationship Specialty Start Date End Date Hung Bay MD [address] [facility] [address] [place] [address] PCP - General Internal Medicine 12/31/15 documented as of this encounter
--- OUTSIDE RECORDS SUMMARY | 2025-10-26 12:53 | XMS_ITS | Encounter Summary ---
Author Organization [facility] Healthcare Address [address] [place] [address] Care Team Providers Care Chief Service Observer Name Role Phone Haylee Montague NP Unavailable [phone] Ismael De La Cruz Primary Care Provider Nicholas Aguilera MD Unavailable Jurgen Maldonado MD Unavailable [phone] Emma Sheridan MD Unavailable Mariela Gonzalez MD Unavailable Dejan Wood DPM Unavailable [phone] Randal Hurst MD Unavailable [phone] Lauren Warren MD Unavailable [phone] Kalpana Sepulveda MD Unavailable [phone] Encounter Details Date Type Department Care Team (Late st Contact Info) Description 06/08/2023 Documentation [facility] [address] [place] [address] [place] [address] [facility] [address] [place] [address] Social History Tobacco Use Types Packs/Day Years Used Date Smoking Tobacco: Former Cigarettes 1 55 1 953 - 2008 Smokeless Tobacco: Never Alcohol Use Standard Drinks/Week Comments No 0 (1 standard drink = 0.6 oz pur e alcohol) PHQ-2 Answer Date Recorded PHQ-2 Total Score (If total score is 3 or more points, staff should administer the PHQ-9) 0 02/12/2023 Personal Safety Answer Date Recorded Have you ever been in or are you currently in a harmful physical or emotional relationship or is someone making you feel afraid or unsafe? 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 Not on file Not on file documented as of this encounter Plan of Treatment Not on file documented as of this encounter Visit Diagnoses Not on filedocumented in this encounter Care Teams Chief Service Observer Relationship Specialty Start Date End Date Ismael De La Cruz PA [address] [place] [address] [address] [place] [address] PCP - General Internal Medicine 07/19/22 [place] [address] [address] Nurse Practitioner Urology 09/29/21 04/17/24 [place] [address] [address] [place] [address] Consulting Physician Pain Management 12/17/23 Jurgen Maldonado MD [address] [place] [address] [address] [place] [address] Consulting Physician Nephrology 04/18/24 [place] [address] [place] [address] Consulting Physician Urology 04/18/24 [place] [address] [place] [address] Consulting Physician Neurology 04/18/24 Dejan Wood DPM [address] [place] [address] Consulting Physician Orthotics 04/18/24 Randal Hurst MD [address] [place] [address] Referring Physician Hematology and Oncology 04/18/24 Lauren Warren MD [address] [place] [address] Consulting Physician General Surgery 04/18/24 Kalpana Sepulveda MD [address] [place] [address] Heat Regulator Obstetrics and Gynecology 04/18/24 documented as of this encounter
--- OUTSIDE RECORDS SUMMARY | 2025-10-26 12:53 | XMS_ITS ---
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 She however did not want to entertain this. She would get significant benefit with regards to the issues with pain and difficulty swallowing by correcting the hernia which shows the entirety of her stomach within her chest. I have cautioned her with risk of recurrence given the weight so anything that she can do in preparation would be beneficial. In addition we have given her a preop diet to help shrink down the size of her liver. We have discussed postoperative lifting restrictions as well as a postoperative diet to prevent nausea and vomiting. We have discussed cardiac risk due to the location of the stomach behind the mediastinum. All questions answered. We will have her obtain medical/cardiac clearance. This will be a major operation for the patient. Lumbar radiculopathy 06/08/2024 Arthritis of left hip 02/01/2024 Assessment & Plan (09/07/2024 3:49 PM CDT): The patient has advanced arthritis of the left hip and will likely need hip replacement surgery in the future. She will need to get herself in better physical condition to get through the surgery successfully. The patient should be performing low-impact exercises on a progressive basis. She may find Aqua size classes beneficial to start with her exercise routine Radiculitis, lumbosacral 11/30/2023 Hepatic steatosis 10/07/2022 Lumbar facet arthropathy 07/15/2022 DDD (degenerative disc disease), lumbar 07/15/20 Spinal stenosis of lumbar re gion with neurogenic claudication 03/18/2022 Bilateral primary osteoarthritis of hip 03/18/20 Assessment & Plan (10/23/2025 12:15 PM EXTRUSION DIE COORDINATOR): Injection done under ultrasound guidance as noted in the procedure note today. Patient tolerated the procedure well. Advised to watch for signs of infection or bleeding and call me or go to the ER if any of these occur. Advise to give it upwards of a week for full efficacy of the steroid. Advise to let me know if there is limited to no improvement. Advise to avoid immersing the area in water for the next 72 hours to avoid further infection. May resume normal activities and 24 hours as tolerated. Advise to rest for the next 24. Exhibited understanding and is in agreement with this plan of care. Chronic bilateral low back pain without sciatica 2020 Numbness and tingling of upp er and lower extremities of both sides 11/30/2019 Impaired functional mobility, balance, gait, and endurance 11/22/2019 Assessment & Plan (01/16/2021 11:15 AM EXTRUSION DIE COORDINATOR): Using walked and struggles to get around Assessment & Plan (11/22/2019 10:48 AM EXTRUSION DIE COORDINATOR): Stumbles and tends to f all. Setup to see neuro for eval. Chronic right shoulder pain 07/03/2019 Assessment & Plan (07/03/2019 11:02 AM CDT): Referral to ortho for eval for inj therapy ekg nl. Rate 64 nsr, axis 15. Nl ekg. No signgs cardiac. heurts now to move an dputting on gown over head and felt and hurt Atherosclerosis of aorta 03/13/2019 Assessment & Plan (04/15/2021 2:41 PM CDT): Trial farxiga and cv risk reductino Assessment & Plan (01/16/2021 11:19 AM EXTRUSION DIE COORDINATOR): Tight risk controll and on goal and asa. Assessment & Plan (09/10/2020 1:52 PM EXTRUSION DIE COORDINATOR): Tight risk controll with risk Assessment & Plan (03/25/2020 10:21 AM CDT): On asa and ldl low 49 and great no changes Assessment & Plan (11/22/2019 10:50 AM EXTRUSION DIE COORDINATOR): Risk control and cont tight And asa. Assessment & Plan (07/19/2019 11:04 AM CDT): Risk controll Assessment & Plan (03/13/2019 12:17 PM CDT): Prior ct shown. Risk controll with asa. ldl less then 100.bp controll Recurrent UTI 03/09/2019 Assessment & Plan (07/19/2019 11:18 AM CDT): urien suggstive bacteria presents but no issue and iwll not treat but track Assessment & Plan (03/09/2019 10:34 AM CDT): + culture and having soft c.o trial prolonged course for 14 days and see if can erradicate and start cranberries . Yogurt while on antibiotics. Hypersomnia with sleep apnea 01/09/2019 Venous insufficiency (chronic) (peripheral) 01/2019 Assessment & Plan (11/10/2018 10:52 AM EXTRUSION DIE COORDINATOR): Start suport hose. ilimt salt and should controll. Hypertension, essential 09/02/2018 Assessment & Plan (03/21/2025 3:03 PM CDT): Recommend DASH diet, heart healthy lifestyle, exercise. Discussed the risks of hypertension. Assessment & Plan (08/18/2024 12:40 PM CDT): Recommend DASH diet, heart-healthy lifestyle, exercise. Discussed the risks of hypertension. Assessment & Plan (12/17/2023 12:34 PM EXTRUSION DIE COORDINATOR): Recommend DASH diet, heart-healthy lifestyle, exercise. Discussed the risks of hypertension. Assessment & Plan (06/14/2023 7:54 AM CDT): Recommend DASH diet, heart-healthy lifestyle, exercise. Discussed the risks of hypertension. Assessment & Plan (02/12/2023 1:00 PM CDT): Recommend DASH diet, heart-healthy lifestyle, exercise. Discussed the risks of hypertension. Assessment & Plan (06/10/2022 1:36 PM CDT): The bp good and see's dr jeanie siddiqui Assessment & Plan (02/25/2022 1:28 PM CDT): The bp good and Renal stable .To try to minimize the worsening and possible improvement in the renal function there are several things to try to do. The patient should work to get off of (if on) drugs Like Prilosec/prevacid/protonix/nexium,etc. This does not include zantac/pepcid or Tagement. It ws shown that there is an increased risk of kidney dysfunction if you use Prilosec like meds.The patient should also stay off of regular use of scripted arthritis pills like Celebrex.mobic,naprosyn,etc. The over the counter pills of this nature are Advil/motrin/ibuprofen and aleve/naproxen. Regular use of these over the counter pills, Particularly at high doses and not scattered use of the meds also can harm the kidneys. Hypertension, Medical treament revolves around weight control, salt management, and meds when necessary. long as weight loss is necessary and you are able to drop weight we can cont to monitor the blood pressure and not add meds. Once the weight is not changing then it becomes nesessary to add meds to be able to reach the goal bp. Assessment & Plan (09/29/2021 10:14 AM EXTRUSION DIE COORDINATOR): The bp great and creat stable in same range and Last 4 cr cl nl Hypertension, Medical treament revolves around weight control, salt management, and meds when necessary. long as weight loss is necessary and you are able to drop weight we can cont to monitor the blood pressure and not add meds. Once the weight is not changing then it becomes nesessary to add meds to be able to reach the goal bp.To try to minimize the worsening and possible improvement in the renal function there are several things to try to do. The patient should work to get off of (if on) drugs Like Prilosec/prevacid/protonix/nexium,etc. This does not include zantac/pepcid or Tagement. It ws shown that there is an increased risk of kidney dysfunction if you use Prilosec like meds.The patient should also stay off of regular use of scripted arthritis pills like Celebrex.mobic,naprosyn,etc. The over the counter pills of this nature are Advil/motrin/ibuprofen and aleve/naproxen. Regular use of these over the counter pills, Particularly at high doses and not scattered use of the meds also can harm the kidneys. Assessment & Plan (01/16/2021 11:13 AM EXTRUSION DIE COORDINATOR): bp good and seeing renal in 2 wksHypertension, Medical treament revolves around weight control, salt management, and meds when necessary. long as weight loss is necessary and you are able to drop weight we can cont to monitor the blood pressure and not add meds. Once the weight is not changing then it becomes nesessary to add meds to be able to reach the goal bp.To try to minimize the worsening and possible improvement in the renal function there are several things to try to do. The patient should work to get off of (if on) drugs Like Prilosec/prevacid/protonix/nexium,etc. This does not include zantac/pepcid or Tagement. It ws shown that there is an increased risk of kidney dysfunction if you use Prilosec like meds.The patient should also stay off of regular use of scripted arthritis pills like Celebrex.mobic,naprosyn,etc. The over the counter pills of this nature are Advil/motrin/ibuprofen and aleve/naproxen. Regular use of these over the counter pills, Particularly at high doses and not scattered use of the meds also can harm the kidneys. Assessment & Plan (09/10/2020 1:54 PM EXTRUSION DIE COORDINATOR): The bp good and no changs and renal stable see's renal Assessment & Plan (03/25/2020 10:23 AM CDT): Directed care with renal Assessment & Plan (11/22/2019 10:49 AM EXTRUSION DIE COORDINATOR): Screens touch higher at 1.[address] maldonado in next monothHypertension, Medical treament revolves around weight control, salt management, and meds when necessary. long as weight loss is necessary and you are able to drop weight we can cont to monitor the blood pressure and not add meds. Once the weight is not changing then it becomes nesessary to add meds to be able to reach the goal bp. Assessment & Plan (07/03/2019 11:09 AM CDT): The bp high at home and here and go to 2/10ths bid and check on r eturn in 2wks and adjst se's dr maldonado and will send not Assessment & Plan (03/09/2019 10:37 AM CDT): See's renal and bp good Assessment & Plan (11/10/2018 10:38 AM EXTRUSION DIE COORDINATOR): bp good and bp better. Hypertension, Medical treament revolves around weight control, salt management, and meds when necessary. long as weight loss is necessary and you are able to drop weight we can cont to monitor the blood pressure and not add meds. Once the weight is not changing then it becomes nesessary to add meds to be able to reach the goal bp. Assessment & Plan (09/02/2018 8:55 AM CDT): Recommend DASH diet, heart healthy lifestyle, exercise. Discussed the risks of hypertension. Gait disturbance 08/23/2018 Recurrent falls 07/13/2018 Assessment & Plan (09/29/2021 10:23 AM EXTRUSION DIE COORDINATOR): Walking and working to reduce Assessment & Plan (07/13/2018 10:29 AM CDT): Going to pt for balance and says does very poor with it. Gastroesophageal reflux disease with esophagitis 07/13/2018 Assessment & Plan (07/13/2018 10:32 AM CDT): gerd ongoing with daily ppi and zantac. And cont to daily b=reakthru. Referral to gi. Impaired joint position sense 04/21/2018 Assessment & Plan (07/19/2019 11:06 AM CDT): Ongoing and no chanes Assessment & Plan (07/13/2018 10:39 AM CDT): Plays a gbig role with falls. Referral to neuro for opion an dthoughts. Se if anything missed Assessment & Plan (04/21/2018 3:30 PM CDT): Bilateral loss of sense will not let you know if balancing forward or back. These lead to falls and usually backwards. Given concern for ms would ask neuro to see and needs balance program. Hx of colonic polyps 09/25/2017 Overview (12/01/2017): Added automatically from request for surgery [id number] At high risk for falls per S chmid fall risk assessment scale 09/14/2017 Assessment & Plan (09/29/2021 10:24 AM EXTRUSION DIE COORDINATOR): High fallrisk Assessment & Plan (09/10/2020 1:56 PM EXTRUSION DIE COORDINATOR): Mod fall risk Assessment & Plan (07/19/2019 11:03 AM CDT): Gait still a strugle Assessment & Plan (09/14/2017 2:03 PM EXTRUSION DIE COORDINATOR): Given knee giving out theen would work with the ortho to help to prevent . Recurrent major depressive disorder, in partial remission 09/14/2017 Assessment & Plan (02/25/2022 1:28 PM CDT): Depression stable and good. Assessment & Plan (09/29/2021 10:23 AM EXTRUSION DIE COORDINATOR): Controlled and on same meds ansstay Assessment & Plan (04/15/2021 2:40 PM CDT): going to have major surg and dementia setting in.meds not working well.on lexapro. Trial seroquel at 1.2 a day and then wsworkup to 1 bid if needed. Stay on lexapro Assessment & Plan (09/10/2020 1:56 PM EXTRUSION DIE COORDINATOR): Controlled with meds and stay on Assessment & Plan (03/25/2020 10:30 AM CDT): Stable and chronic and no med changs Assessment & Plan (11/22/2019 10:47 AM EXTRUSION DIE COORDINATOR): On meds and well controlled no changes Assessment & Plan (07/19/2019 11:08 AM CDT): Replaces the 10 mg lexapro to 20 mg Assessment & Plan (03/15/2018 10:57 AM CDT): The depression wellcontrolled Assessment & Plan (09/14/2017 2:03 PM EXTRUSION DIE COORDINATOR): Well controlled and no changes Class 3 severe obesity due t o excess calories with serious comorbidity and body mass index (BMI) of 45.0 to 49.9 in adult 09/14/2017 Assessment & Plan (02/12/2023 1:00 PM CDT): She was counseled on the importance of maintaining a healthy weight and the risks of obesity. Weight loss recommended. Assessment & Plan (10/07/2022 12:21 PM EXTRUSION DIE COORDINATOR): She was counseled on the importance of maintaining a healthy weight and the risks of obesity. Weight loss recommended. Assessment & Plan (06/10/2022 1:35 PM CDT): Morbid obesity is a bmi of 40 or more. Targeted weight loss with portion controll(calorie restriction) ,increased basal activity Levels along with adding an exercise program to lead to gradual weight loss,.Any program of change from weight watchers. To nutra system along with others work. Assessment & Plan (03/18/2022 8:10 AM CDT): She was counseled on the importance of maintaining a healthy weight and the risks of obesity. Weight loss recommended. Assessment & Plan (02/25/2022 1:24 PM CDT): Morbid obesity is a bmi of 40 or more. Targeted weight loss with portion controll(calorie restriction) ,increased basal activity Levels along with adding an exercise program to lead to gradual weight loss,.Any program of change from weight watchers. To nutra system along with others work. Assessment & Plan (09/29/2021 10:12 AM EXTRUSION DIE COORDINATOR): Morbid obesity is a bmi of 40 or more. Targeted weight loss with portion controll(calorie restriction) ,increased basal activity Levels along with adding an exercise program to lead to gradual weight loss,.Any program of change from weight watchers. To nutra system along with others work. Assessment & Plan (05/14/2021 1:29 PM CDT): Wants to try meds and talked about victoza and wi l strt and work up from .6 And every couplddays go p A tenth or two till max dose 1.8 and watch fo rbenefits and side effects if lower dose works then stay thereMorbid obesity is a bmi of 40 or more. Targeted weight loss with portion controll(calorie restriction) ,increased basal activity Levels along with adding an exercise program to lead to gradual weight loss,.Any program of change from weight watchers. To nutra system along with others work. Assessment & Plan (04/15/2021 2:37 PM CDT): wtr gain and needs lose Assessment & Plan (01/31/2021 5:56 PM CDT): calld in for wt loss meds have dealt with many times and aware not magic pill trial metformin 500 daily for 2 wks then Bid and ask to ssee in 4-6 wks Assessment & Plan (01/16/2021 11:13 AM EXTRUSION DIE COORDINATOR): Morbid obesity is a bmi of 40 or more. Targeted weight loss with portion controll(calorie restriction) ,increased basal activity Levels along with adding an exercise program to lead to gradual weight loss,.Any program of change from weight watchers. To nutra system along with others work. Assessment & Plan (09/10/2020 2:07 PM EXTRUSION DIE COORDINATOR): Morbid obesity is a bmi of 40 or more. Targeted weight loss with portion controll(calorie restriction) ,increased basal activity Levels along with adding an exercise program to lead to gradual weight loss,.Any program of change from weight watchers. To nutra system along with others work. Morbid obesity is a bmi of 40 or more. Targeted weight loss with portion controll(calorie restriction) ,increased basal activity Levels along with adding an exercise program to lead to gradual weight loss,.Any program of change from weight watchers. To nutra system along with others work. Assessment & Plan (03/25/2020 10:25 AM CDT): Work to drop wtMorbid obesity is a bmi of 40 or more. Targeted weight loss with portion controll(calorie restriction) ,increased basal activity Levels along with adding an exercise program to lead to gradual weight loss,.Any program of change from weight watchers. To nutra system along with others work. Assessment & Plan (11/22/2019 10:49 AM EXTRUSION DIE COORDINATOR): Morbid obesity is a bmi of 40 or more. Targeted weight loss with portion controll(calorie restriction) ,increased basal activity Levels along with adding an exercise program to lead to gradual weight loss,.Any program of change from weight watchers. To nutra system along with others work. Assessment & Plan (07/19/2019 11:07 AM CDT): Morbid obesity is a bmi of 40 or more. Targeted weight loss with portion controll(calorie restriction) ,increased basal activity Levels along with adding an exercise program to lead to gradual weight loss,.Any program of change from weight watchers. To nutra system along with others work. Assessment & Plan (07/03/2019 12:14 PM CDT): Morbid obesity is a bmi of 40 or more. Targeted weight loss with portion controll(calorie restriction) ,increased basal activity Levels along with adding an exercise program to lead to gradual weight loss,.Any program of change from weight watchers. To nutra system along with others work. Assessment & Plan (03/09/2019 10:35 AM CDT): Morbid obesity is a bmi of 40 or more. Targeted weight loss with portion controll(calorie restriction) ,increased basal activity Levels along with adding an exercise program to lead to gradual weight loss,.Any program of change from weight watchers. To nutra system along with others work. Assessment & Plan (11/10/2018 10:52 AM EXTRUSION DIE COORDINATOR): Morbid obesity is a bmi of 40 or more. Targeted weight loss with portion controll(calorie restriction) ,increased basal activity Levels along with adding an exercise program to lead to gradual weight loss,.Any program of change from weight watchers. To nutra system along with others work. Assessment & Plan (07/13/2018 10:35 AM CDT): Morbid obesity is a bmi of 40 or more. Targeted weight loss with portion controll(calorie restriction) ,increased basal activity Levels along with adding an exercise program to lead to gradual weight loss,.Any program of change from weight watchers. To nutra system along with others work. Assessment & Plan (04/21/2018 3:39 PM CDT): Morbid obesity is a bmi of 40 or more. Targeted weight loss with portion controll(calorie restriction) ,increased basal activity Levels along with adding an exercise program to lead to gradual weight loss,.Any program of change from weight watchers. To nutra system along with others work. Wants victoza for weight loss. Discussed start at .6 and work up to 1.8 if needed and effective. Stop if find a lower dose helps. Assessment & Plan (03/15/2018 10:58 AM CDT): Morbid obesity is a bmi of 40 or more. Targeted weight loss with portion controll(calorie restriction) ,increased basal activity Levels along with adding an exercise program to lead to gradual weight loss,.Any program of change from weight watchers. To nutra system along with others work. Assessment & Plan (01/31/2018 10:33 AM CDT): Recommended patient to continue to increase heart healthy diet with adequate fruits, vegetables, and plenty of water along with mild-moderate daily exercise as tolerated. Assessment & Plan (09/14/2017 2:05 PM EXTRUSION DIE COORDINATOR): Morbid obesity is a bmi of 40 or more. Targeted weight loss with portion controll(calorie restriction) ,increased basal activity Levels along with adding an exercise program to lead to gradual weight loss,.Any program of change from weight watchers. To [employer] system along with others work. Mild intermittent asthma without complication Assessment & Plan (09/14/2017 2:09 PM EXTRUSION DIE COORDINATOR): Asthma is the excess production of secretions and reactivity/twitchiness of the breathing / bronchial tubes. This can be chronic ,acute on chronic or episodic(acute).Inhaled materials in the form of pollutants( gaseous or particles) pollens ,exercise or infections that are usually viral. Some people never have issues unless they get a cold/flu. Some are mainly induced by exercise.If you have a regular need (read nearly daily use or need) of a rescue inhaler like albuterol you should be started on or use your controller inhaler/medicines..There is a place for episodic steroid use for those who have had or are having a fairly severe spell.There is a need for regular use of controller meds(usually steroid containing inhalers) for those who are proven to have a chronically obstructed breathing pattern. If you feel you are getting worse then an urgent visit to the er is in order or at least a return to the clinic for a re-evaluation of your meds/treament.Without c.o and n o brennon for inhalers. Will check and with cigs gone a major improvemnt Airplane sickness 09/14/2017 Assessment & Plan (09/14/2017 2:17 PM EXTRUSION DIE COORDINATOR): Low dose xanax for flight only. 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 The patient should work to get off of (if on) drugs Like Prilosec/prevacid/protonix/nexium,etc. This does not include zantac/pepcid or Tagement. It ws shown that there is an increased risk of kidney dysfunction if you use Prilosec like meds.The patient should also stay off of regular use of scripted arthritis pills like Celebrex.mobic,naprosyn,etc. The over the counter pills of this nature are Advil/motrin/ibuprofen and aleve/naproxen. Regular use of these over the counter pills, Particularly at high doses and not scattered use of the meds also can harm the kidneys. Assessment & Plan (09/29/2021 10:12 AM EXTRUSION DIE COORDINATOR): Stable and creat varies but all cr cl normal cisne one low [address] maldonado Assessment & Plan (01/21/2021 1:59 PM CDT): See's renal and yr'ly with last gfr level 1 crf. Due to see them in nedt month Assessment & Plan (07/19/2019 11:05 AM CDT): See's renal md and monitored Assessment & Plan (11/10/2018 10:30 AM EXTRUSION DIE COORDINATOR): Creat droped to n. And seeing renal Assessment & Plan (07/13/2018 10:37 AM CDT): Knows should not use ppi And zantac Assessment & Plan (03/15/2018 10:56 AM CDT): Renal md seeing and monitoring Assessment & Plan (01/31/2018 10:33 AM CDT): Creatinine was 1.10. Continue to monitor blood pressure and certainly to see Dr. Maldonado as scheduled. Continue with office visit in a month for repeat labs in office with Dr. Bay Assessment & Plan (09/14/2017 2:07 PM EXTRUSION DIE COORDINATOR): Micro allbumen nl at 6. Repeat 24 hr u rine lyr'ly.To try to minimize the worsening and possible improvement in the renal function there are several things to try to do. The patient should work to get off of (if on) drugs Like Prilosec/prevacid/protonix/nexium,etc. This does not include zantac/pepcid or Tagement. It ws shown that there is an increased risk of kidney dysfunction if you use Prilosec like meds.The patient should also stay off of regular use of scripted arthritis pills like Celebrex.mobic,naprosyn,etc. The over the counter pills of this nature are Advil/motrin/ibuprofen and aleve/naproxen. Regular use of these over the counter pills, Particularly at high doses and not scattered use of the meds also can harm the kidneys. FRANCISCO (obstructive sleep apnea) 03/24/2014 Overview (02/12/2017): Sleep apnea Assessment & Plan (07/19/2019 11:09 AM CDT): usex nightly and feels works well Assessment & Plan (11/10/2018 10:53 AM EXTRUSION DIE COORDINATOR): Sleep apnea and radha recio And referring radha dr jon for Rx. Treating the sleep apne will help. referal to dr jon and if not from dr recio then call for a Referral. Assessment & Plan (09/14/2017 2:10 PM EXTRUSION DIE COORDINATOR): lst study 5 yrs ago. As poanning on wt loss prceedure and the pressure changes as lose wt . Would not start sleep rx until wt stabilizes. Then study. 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 The triglycerides respond to reduction/controll of your simple carbs/sugars In such items as sugared soda/sweet tea along with fruit juices(containing natural sugar) even if no added sugar is added. LDL cholesterol is reduced with reducing daily intake of fats and samanta. saturated fats. The monosaturated fats like olive oil are not harmful except in the calories they contained. Whole milk cheese needs to be remembered along with whole milk products And limited. Assessment & Plan (02/25/2022 1:29 PM CDT): Your cholesterol in the form of ldl (bad) cholesterol,hdl(good) cholesterol and triglycerides are monitored. The triglycerides respond to reduction/controll of your simple carbs/sugars In such items as sugared soda/sweet tea along with fruit juices(containing natural sugar) even if no added sugar is added. LDL cholesterol is reduced with reducing daily intake of fats and samanta. saturated fats. The monosaturated fats like olive oil are not harmful except in the calories they contained. Whole milk cheese needs to be remembered along with whole milk products And limited.ldl at 47 and great and keep meds stable Assessment & Plan (09/29/2021 10:22 AM EXTRUSION DIE COORDINATOR): ldl at 55 and great and no changres . Your cholesterol in the form of ldl (bad) cholesterol,hdl(good) cholesterol and triglycerides are monitored. The triglycerides respond to reduction/controll of your simple carbs/sugars In such items as sugared soda/sweet tea along with fruit juices(containing natural sugar) even if no added sugar is added. LDL cholesterol is reduced with reducing daily intake of fats and samanta. saturated fats. The monosaturated fats like olive oil are not harmful except in the calories they contained. Whole milk cheese needs to be remembered along with whole milk products And limited. Assessment & Plan (01/16/2021 11:14 AM EXTRUSION DIE COORDINATOR): ldl 59 And trig droped to 200 and lowest so no chags abut diet tight if canYour cholesterol in the form of ldl (bad) cholesterol,hdl(good) cholesterol and triglycerides are monitored. The triglycerides respond to reduction/controll of your simple carbs/sugars In such items as sugared soda/sweet tea along with fruit juices(containing natural sugar) even if no added sugar is added. LDL cholesterol is reduced with reducing daily intake of fats and samanta. saturated fats. The monosaturated fats like olive oil are not harmful except in the calories they contained. Whole milk cheese needs to be remembered along with whole milk products And limited. Assessment & Plan (09/10/2020 1:55 PM EXTRUSION DIE COORDINATOR): ldl 56 and great controll. Your cholesterol in the form of ldl (bad) cholesterol,hdl(good) cholesterol and triglycerides are monitored. The triglycerides respond to reduction/controll of your simple carbs/sugars In such items as sugared soda/sweet tea along with fruit juices(containing natural sugar) even if no added sugar is added. LDL cholesterol is reduced with reducing daily intake of fats and samanta. saturated fats. The monosaturated fats like olive oil are not harmful except in the calories they contained. Whole milk cheese needs to be remembered along with whole milk products And limited. Assessment & Plan (03/25/2020 10:25 AM CDT): ldl at 49 and great and no changes in medsYour cholesterol in the form of ldl (bad) cholesterol,hdl(good) cholesterol and triglycerides are monitored. The triglycerides respond to reduction/controll of your simple carbs/sugars In such items as sugared soda/sweet tea along with fruit juices(containing natural sugar) even if no added sugar is added. LDL cholesterol is reduced with reducing daily intake of fats and samanta. saturated fats. The monosaturated fats like olive oil are not harmful except in the calories they contained. Whole milk cheese needs to be remembered along with whole milk products And limited. Assessment & Plan (11/22/2019 10:46 AM EXTRUSION DIE COORDINATOR): tarigs 299 and up some and ldl at 64 and great. No chaeg and work diet for trigs.Your cholesterol in the form of ldl (bad) cholesterol,hdl(good) cholesterol and triglycerides are monitored. The triglycerides respond to reduction/controll of your simple carbs/sugars In such items as sugared soda/sweet tea along with fruit juices(containing natural sugar) even if no added sugar is added. LDL cholesterol is reduced with reducing daily intake of fats and samanta. saturated fats. The monosaturated fats like olive oil are not harmful except in the calories they contained. Whole milk cheese needs to be remembered along with whole milk products And limited. Assessment & Plan (07/19/2019 11:07 AM CDT): ldl at 67 and great n o changesYour cholesterol in the form of ldl (bad) cholesterol,hdl(good) cholesterol and triglycerides are monitored. The triglycerides respond to reduction/controll of your simple carbs/sugars In such items as sugared soda/sweet tea along with fruit juices(containing natural sugar) even if no added sugar is added. LDL cholesterol is reduced with reducing daily intake of fats and samanta. saturated fats. The monosaturated fats like olive oil are not harmful except in the calories they contained. Whole milk cheese needs to be remembered along with whole milk products And limited. Assessment & Plan (03/09/2019 10:36 AM CDT): ldl at 52 and great.Your cholesterol in the form of ldl (bad) cholesterol,hdl(good) cholesterol and triglycerides are monitored. The triglycerides respond to reduction/controll of your simple carbs/sugars In such items as sugared soda/sweet tea along with fruit juices(containing natural sugar) even if no added sugar is added. LDL cholesterol is reduced with reducing daily intake of fats and samnata. saturated fats. The monosaturated fats like olive oil are not harmful except in the calories they contained. Whole milk cheese needs to be remembered along with whole milk products And limited. Assessment & Plan (11/10/2018 10:57 AM EXTRUSION DIE COORDINATOR): ldl at 52 and good. No changesYour cholesterol in the form of ldl (bad) cholesterol,hdl(good) cholesterol and triglycerides are monitored. The triglycerides respond to reduction/controll of your simple carbs/sugars In such items as sugared soda/sweet tea along with fruit juices(containing natural sugar) even if no added sugar is added. LDL cholesterol is reduced with reducing daily intake of fats and samanta. saturated fats. The monosaturated fats like olive oil are not harmful except in the calories they contained. Whole milk cheese needs to be remembered along with whole milk products And limited. Assessment & Plan (07/13/2018 10:31 AM CDT): ldl at 59 and great and no changesYour cholesterol in the form of ldl (bad) cholesterol,hdl(good) cholesterol and triglycerides are monitored. The triglycerides respond to reduction/controll of your simple carbs/sugars In such items as sugared soda/sweet tea along with fruit juices(containing natural sugar) even if no added sugar is added. LDL cholesterol is reduced with reducing daily intake of fats and samanta. saturated fats. The monosaturated fats like olive oil are not harmful except in the calories they contained. Whole milk cheese needs to be remembered along with whole milk products And limited. Assessment & Plan (03/15/2018 10:55 AM CDT): ldl at 53 and good controll. Hypertension, Medical treament revolves around weight control, salt management, and meds when necessary. long as weight loss is necessary and you are able to drop weight we can cont to monitor the blood pressure and not add meds. Once the weight is not changing then it becomes nesessary to add meds to be able to reach the goal bp. Assessment & Plan (09/14/2017 2:06 PM EXTRUSION DIE COORDINATOR): ldl at 45 and good. No changesYour cholesterol in the form of ldl (bad) cholesterol,hdl(good) cholesterol and triglycerides are monitored. The triglycerides respond to reduction/controll of your simple carbs/sugars In such items as sugared soda/sweet tea along with fruit juices(containing natural sugar) even if no added sugar is added. LDL cholesterol is reduced with reducing daily intake of fats and samanta. saturated fats. The monosaturated fats like olive oil are not harmful except in the calories they contained. Whole milk cheese needs to be remembered along with whole milk products And limited. Rosacea 01/23/2014 Overview (02/12/2017): Acne rosacea Assessment & Plan (09/14/2017 2:06 PM EXTRUSION DIE COORDINATOR): Well controlled. Mitral valve prolapse 01/29/2012 Overview (02/12/2017): MVP (mitral valve prolapse) Osteoarthritis 01/29/2012 Overview (02/12/2017): Osteoarthritis Current Treatment and Therapy Plans No current plan information found. Past Treatment and Therapy Plans No past plan information found. Lifetime Dose Tracking * Chemical Lifetime Dose Automatic Entry Manual Entr y Fluoro Time 4.289 minutes 4.289 minutes 0 minutes Air kerma at the reference point (Ka,r) 191.55 mGy 1 91.55 mGy 0 mGy Resolved Problems Problem Noted Date Diagnosed Date Resolved Date Nausea and vomiting 09/19/2024 01/23/20 25 Pre-procedure lab exam 05/26/202312/18 Bilateral hip pain 01/12/2023 5 Dysphagia 11/24/2022 02/12/2023 Overview (01/05/2023): Added automatically from request for surgery [id number] Other emphysema 02/25/2022 04/18/2024 Assessment & Plan (02/25/2022 1:31 PM CDT): On ct and stable Facial aging 10/11/2021 10/07/2022 Pain in right upper arm 05/14/202112/09 Assessment & Plan (05/14/2021 1:33 PM CDT): Local area that Comes and goes no massses and not tender . No evidence of pinch nerve. Report and Follow up on Constipation 08/30/2020 02/12/2023 Assessment & Plan (09/10/2020 1:54 PM EXTRUSION DIE COORDINATOR): Push up the miralax to 1.5 pack then 2 if needed. Assessment & Plan (08/30/2020 10:13 AM CDT): 8 mos of severe constipation unaffected bhy metamucil but responsive to miralax. 12/26 colonoscopy. Diet is no breakfast, small sandwich at 1400 and big dinner later. Very little water and exercise limited by walker. Discussed repeat colonoscopy but will add 3 fruits/d and miralax daily and return prn. Shortness of breath 07/03/2019 10/07/20 22 Assessment & Plan (07/03/2019 12:14 PM CDT): No correllation with shoulders activty or not. No cough. No chest pain with bmi 43 and inactvity likely the Package. Declines referral to pulm for eval.ekg rate 64. Nsr. Baggs 15. Nl. 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 times 10 days. Use of probiotics were encouraged as well. Follow-up in office with any worsening or little improvement in otalgia and ear fullness and certainly with any notation hearing loss Morbid obesity with BMI of 45.0-49.9, adult 08/19/2018 01/22/2025 Assessment & Plan (09/07/2024 3:51 PM CDT): The patient's current weight provides her with a BMI over 45. She has lost 10 lb but she has done so secondary to GI issues. She reportedly is not a candidate for medication treatment for weight loss due to her single functioning kidney. She needs lifestyle changes to encourage weight loss. Would encourage her to perform low- impact exercises such as water exercise classes or any progressive low-impact exercise she is comfortable performing. Assessment & Plan (11/10/2018 10:31 AM EXTRUSION DIE COORDINATOR): Morbid obesity is a bmi of 40 or more. Targeted weight loss with portion controll(calorie restriction) ,increased basal activity Levels along with adding an exercise program to lead to gradual weight loss,.Any program of change from weight watchers. To [employer] system along with others work. Assessment & Plan (08/19/2018 12:14 PM CDT): Recommended patient to continue to increase heart healthy diet with adequate fruits, vegetables, and plenty of water along with mild-moderate daily exercise as tolerated. Weight loss encouraged Lumbar strain, sequela 06/22/201812/18 Assessment & Plan (06/22/2018 11:07 AM CDT): Corticosteroids recommended to take a tapering fashion, heat/ice, certainly she can continue to see her chiropractor for additional management if she so desires. X- ray would not be beneficial at this time I did recommend following up here in 2 weeks there is no improvement pain certainly worsening pain. Physical therapy recommended, tizanidine prescribed only for p.r.n. use mostly at night, she is requesting to have something else extra for pain, Acampo was prescribed only p.r.n. use. [facility] state prescription monitoring program was checked prior to filling this prescription patient was educated in regard to the proper use of medication and to not take concurrently with tizanidine due to sedation. Follow- up in 2 weeks or sooner as needed Chest wall syndrome 04/21/2018 07/19/20 19 Assessment & Plan (03/09/2019 10:39 AM CDT): Stable and syndrome discussed Assessment & Plan (11/10/2018 10:48 AM EXTRUSION DIE COORDINATOR): Reproducible. Will eb and flux. Non rx. No meds. strecth abnd time Assessment & Plan (04/21/2018 3:33 PM CDT): Post trauma jody working. Well. Influenza A 01/31/2018 03/15/2018 Assessment & Plan (01/31/2018 10:33 AM CDT): Asymptomatic aside from mild cough in office. Continue to push fluids continued Mucinex [id number] only p.r.n. and certainly follow up with us at the cough persist or start to cause chest congestion. Dysuria 01/31/2018 03/15/2018 Assessment & Plan (01/31/2018 10:52 AM CDT): Urine dip in office today did indicate the presence of some leukocytes to which will send off indicating bacterial cause. In the interim recommended pushing fluids, antibiotics which are prescribed bactrim BID x 7 days. Patient was a course recommended that will follow up with her in the next 2-3 business days regarding results of urinalysis after further evaluation indicating need to continue management, stop medication, or bladder changer pending results IGT (impaired glucose tolerance) 09/14/2017 02/12/2023 Assessment & Plan (06/10/2022 1:35 PM CDT): a1c at 5.4 Assessment & Plan (02/25/2022 1:30 PM CDT): a1c at 5.4 and nl Assessment & Plan (09/29/2021 10:15 AM EXTRUSION DIE COORDINATOR): a1c 5.1 Assessment & Plan (05/14/2021 1:28 PM CDT): Work diet and wt. And neww med for card reduction tolerated and cont Assessment & Plan (04/15/2021 2:38 PM CDT): Start farxiga for cv risk reduction Assessment & Plan (01/16/2021 11:15 AM EXTRUSION DIE COORDINATOR): a1c 5.2 Assessment & Plan (09/10/2020 1:55 PM EXTRUSION DIE COORDINATOR): a1c at 5,1 and nl. Assessment & Plan (03/25/2020 10:24 AM CDT): a1c at 5.6 and 5.6 nl Assessment & Plan (11/22/2019 10:47 AM EXTRUSION DIE COORDINATOR): a1c at 5.3 and 5.6 upper nl Assessment & Plan (07/19/2019 11:06 AM CDT): a1c at 5.6 and nl. Assessment & Plan (03/09/2019 10:36 AM CDT): a1c at 5.0 and nl Assessment & Plan (11/10/2018 10:37 AM EXTRUSION DIE COORDINATOR): a1c at 5.1 ands nl Assessment & Plan (07/13/2018 10:31 AM CDT): a1c at 5.4 and 5.6 and lesnl. Assessment & Plan (03/15/2018 10:55 AM CDT): a1c at 5.5 and Good. Assessment & Plan (09/14/2017 2:05 PM EXTRUSION DIE COORDINATOR): a1c at 5.3 and good. 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 Stay on meds Assessment & Plan (04/15/2021 2:42 PM CDT): Can and chest pain stable and cont meds and farxiga. For risk recduction Assessment & Plan (01/16/2021 11:12 AM EXTRUSION DIE COORDINATOR): Chest pian Free and cont meds Assessment & Plan (09/10/2020 1:50 PM EXTRUSION DIE COORDINATOR): Stable chest pain Assessment & Plan (03/25/2020 10:22 AM CDT): Cad stable and pain frfee and no changs Assessment & Plan (11/22/2019 10:50 AM EXTRUSION DIE COORDINATOR): Cad stable and pain free with meds Assessment & Plan (07/19/2019 11:11 AM CDT): Chest elissa free Assessment & Plan (07/03/2019 12:15 PM CDT): ekg nl. C.o suport non carfdiac soudcre of Sob. delined stress eval or referral to card for opino. No chnages in Tolerance with so pping ccb. Assessment & Plan (03/09/2019 10:37 AM CDT): Heart stable. Assessment & Plan (11/10/2018 10:49 AM EXTRUSION DIE COORDINATOR): Chest pain reassessed and pain free Assessment & Plan (03/15/2018 10:58 AM CDT): No heart pain with meds and working to controll risk of bp Assessment & Plan (09/14/2017 2:08 PM EXTRUSION DIE COORDINATOR): Heart stable and cont meds and controll risk. Daily asa 81 Encounter for Medicare annual wellness exam 09/14/2017 03/19/2025 Assessment & Plan (09/10/2020 2:03 PM EXTRUSION DIE COORDINATOR): Mod fallrisk deprisno screen nl cog sc reen nl colon mitzi up to date. Colon up to date. tsh anda1c nl. Assessment & Plan (07/19/2019 11:14 AM CDT): depressio screen neg but active Issues and asking to go to 20 on lexapro and shirley go to 20 and see if sorksl. Mod fall risk. Cognitive sc feen nll up to date on tdap colon. Flu shots and p shots shingles shosts series. Assessment & Plan (09/14/2017 2:13 PM EXTRUSION DIE COORDINATOR): Screening labs for chemistries. Thyroid. Urine protein all nl the a1c at 5.3 and great. upto date on pneumonia shots. Tdap. And shirley get flu today. Itch 06/16/2017 10/07/2022 Assessment & Plan (03/25/2020 10:46 AM CDT): Intermittent niot tried the antihistamine steroids Worked while on encouraged to trytyeh zyrtec and aware rare sedation and need to stop trial singulair once tried nantihistamine. Stop soaps and hot water hs appt withdemr at mid April and encouraged to keep it. Add singulair to the antihistamine and see if helps if doea can try off antihistamine. .nl lft's and renal screens Abnormal glucose tolerance test (GTT) 09/20/2014 09/14/2017 Overview (02/12/2017): IMPAIRED ORAL GLUCSE VISHAL Vaginal dryness 09/20/2014 01/03/2018 Overview (02/12/2017): Vaginal dryness Benign hypertension 03/24/2014 02/13/20 23 Overview (02/11/2017): BENIGN HYPERTENSION Assessment & Plan (10/07/2022 12:20 PM EXTRUSION DIE COORDINATOR): Recommend DASH diet, heart-healthy lifestyle, exercise. Discussed the risks of hypertension. Assessment & Plan (06/10/2022 1:34 PM CDT): The bp good and keep meds same Hypertension, Medical treament revolves around weight control, salt management, and meds when necessary. long as weight loss is necessary and you are able to drop weight we can cont to monitor the blood pressure and not add meds. Once the weight is not changing then it becomes nesessary to add meds to be able to reach the goal bp. Assessment & Plan (03/18/2022 8:12 AM CDT): Recommend DASH diet, heart-healthy lifestyle, exercise. Discussed the risks of hypertension. Assessment & Plan (02/25/2022 1:26 PM CDT): The bp good and keepmeds sameHypertension, Medical treament revolves around weight control, salt management, and meds when necessary. long as weight loss is necessary and you are able to drop weight we can cont to monitor the blood pressure and not add meds. Once the weight is not changing then it becomes nesessary to add meds to be able to reach the goal bp. Assessment & Plan (09/29/2021 10:09 AM EXTRUSION DIE COORDINATOR): The bp good and keep meds asameHypertension, Medical treament revolves around weight control, salt management, and meds when necessary. long as weight loss is necessary and you are able to drop weight we can cont to monitor the blood pressure and not add meds. Once the weight is not changing then it becomes nesessary to add meds to be able to reach the goal bp. Assessment & Plan (04/15/2021 2:41 PM CDT): bp good and no chagds in medsHypertension, Medical treament revolves around weight control, salt management, and meds when necessary. long as weight loss is necessary and you are able to drop weight we can cont to monitor the blood pressure and not add meds. Once the weight is not changing then it becomes nesessary to add meds to be able to reach the goal bp. Assessment & Plan (01/16/2021 11:12 AM EXTRUSION DIE COORDINATOR): bp good and no chagds in meds Hypertension, Medical treament revolves around weight control, salt management, and meds when necessary. long as weight loss is necessary and you are able to drop weight we can cont to monitor the blood pressure and not add meds. Once the weight is not changing then it becomes nesessary to add meds to be able to reach the goal bp. Assessment & Plan (09/10/2020 1:51 PM EXTRUSION DIE COORDINATOR): The bp good and no chaHypertension, Medical treament revolves around weight control, salt management, and meds when necessary. long as weight loss is necessary and you are able to drop weight we can cont to monitor the blood pressure and not add meds. Once the weight is not changing then it becomes nesessary to add meds to be able to reach the goal bp.zgs in meds Assessment & Plan (03/25/2020 10:20 AM CDT): The bp acceptable and nl lhere but high at home renal manageling and off lasix for now . Will restart after see's or per instruction Assessment & Plan (11/22/2019 10:44 AM EXTRUSION DIE COORDINATOR): bp away high and heere nl. When see's maldonado the renal ask about bp and rx.Hypertension, Medical treament revolves around weight control, salt management, and meds when necessary. long as weight loss is necessary and you are able to drop weight we can cont to monitor the blood pressure and not add meds. Once the weight is not changing then it becomes nesessary to add meds to be able to reach the goal bp. Assessment & Plan (07/19/2019 11:04 AM CDT): Well controllled and no changresHypertension, Medical treament revolves around weight control, salt management, and meds when necessary. long as weight loss is necessary and you are able to drop weight we can cont to monitor the blood pressure and not add meds. Once the weight is not changing then it becomes nesessary to add meds to be able to reach the goal bp. Assessment & Plan (03/09/2019 10:38 AM CDT): The bp good and nochangesHypertension, Medical treament revolves around weight control, salt management, and meds when necessary. long as weight loss is necessary and you are able to drop weight we can cont to monitor the blood pressure and not add meds. Once the weight is not changing then it becomes nesessary to add meds to be able to reach the goal bp. Assessment & Plan (11/10/2018 10:30 AM EXTRUSION DIE COORDINATOR): athe bp good and meds adjusted. Hypertension, Medical treament revolves around weight control, salt management, and meds when necessary. long as weight loss is necessary and you are able to drop weight we can cont to monitor the blood pressure and not add meds. Once the weight is not changing then it becomes nesessary to add meds to be able to reach the goal bp. Assessment & Plan (07/13/2018 10:37 AM CDT): bp good And cont mes now.Hypertension, Medical treament revolves around weight control, salt management, and meds when necessary. long as weight loss is necessary and you are able to drop weight we can cont to monitor the blood pressure and not add meds. Once the weight is not changing then it becomes nesessary to add meds to be able to reach the goal bp. Assessment & Plan (04/21/2018 3:32 PM CDT): bp with med changes helping and needs to stay and work with renal. Hypertension, Medical treament revolves around weight control, salt management, and meds when necessary. long as weight loss is necessary and you are able to drop weight we can cont to monitor the blood pressure and not add meds. Once the weight is not changing then it becomes nesessary to add meds to be able to reach the goal bp. Assessment & Plan (03/15/2018 11:04 AM CDT): bp on high side and dr maldonado Reported directed her that his office was going to direct bp rx. Hypertension, Medical treament revolves around weight control, salt management, and meds when necessary. long as weight loss is necessary and you are able to drop weight we can cont to monitor the blood pressure and not add meds. Once the weight is not changing then it becomes nesessary to add meds to be able to reach the goal bp.bp reviewed with dr maldonado directing. Discussed time to take meds and affect as wella s wegffect on kidneyts. Leave alone for now. Reviewed med interaciton. For bp. Lipids. And renal function. Corrected med taking. Assessment & Plan (01/31/2018 10:34 AM CDT): Blood pressure appears stable in office today and going through her blood pressure readings from home it also appears to be stable after she takes her medication. She is asymptomatic regarding hypertension as well. Continue with the current dosing of quinapril and verapamil as previously prescribed, daily aspirin for heart health, and also low fat diet with increasing exercise as tolerated for further heart health. Follow-up in a month for repeat labs to check kidney function and electrolytes along with office visit shortly after Assessment & Plan (09/14/2017 2:08 PM EXTRUSION DIE COORDINATOR): bp well controled and stay on medsHypertension, Medical treament revolves around weight control, salt management, and meds when necessary. long as weight loss is necessary and you are able to drop weight we can cont to monitor the blood pressure and not add meds. Once the weight is not changing then it becomes nesessary to add meds to be able to reach the goal bp.. Depression 05/09/2013 09/14/2017 Overview (02/12/2017): Depression Asthma 05/09/2013 09/14/2017 Overview (02/12/2017): Asthma Hypotension 05/09/2013 09/14/2017 Overview (02/12/2017): Hypotension Hyperlipidemia 05/09/2013 09/14/2017 Overview (02/12/2017): Hyperlipemia Chronic renal impairment 05/09/201305/2017 Overview (02/12/2017): Chronic kidney disease Arteriosclerotic vascular disease 03/27/2013 09/14/2017 Overview (02/10/2017): Arteriosclerosis of abdominal aorta Gastroesophageal reflux dise ase without esophagitis 01/29/2012 03/18/2022 Overview (02/12/2017): GERD (gastroesophageal reflux disease) Assessment & Plan (09/10/2020 1:52 PM EXTRUSION DIE COORDINATOR): Ideally not to take ppil Assessment & Plan (03/25/2020 10:23 AM CDT): On and off and limit ppi's for renal. Assessment & Plan (09/14/2017 2:07 PM EXTRUSION DIE COORDINATOR): gerd is best treated with life style changes. The more you can do these within your life style the more your heart burn or acid related issues will improve and not require meds. aicds are stopped And this include carbonation,tomatoe based items,fruit juices and quantities of fruit I general. You want an empty stomach on going to bed or laying down. This includes a full glass of water which takes up to an hour to clear the stomach.The gi specialist ask that you not eat for up to 5 hours before going to bed,Blockingthe head of the bed up 4 is also felt to be helpful. Fats in the diet cause an issue by staying in the Stomach longer then other foods so the stomach ends up not emptying and staying kirk then usual as a result with a higher degree of acids being put into the stomach in an attempt to Breakdown the fatty food. Realize that aicd meds such as prilosec/prevacid/protonix/nexium Along with tagemet and zantac suppress the acid the stomach produces and does not neutralize the stomach contents. To do this you have to use an antiacids.Gaviscon has been used specifically for heartburn/gerd from the first but all the antiacids have a gerd variety of there product, in addition any liquid antiacids will be far better then the usual tums or rolaids. referal to gi given repeated breakthru Hypertension 01/29/2012 09/14/2017 Overview (02/12/2017): Hypertension
--- OUTSIDE RECORDS SUMMARY | 2025-10-26 12:53 | XMS_ITS | Encounter Summary ---
Author Organization [facility] Address [address] [place] [address] Care Team Providers Care Spanish Lecturer Name Role Phone Unknown, Provider Primary Care Provider Ismael Winston PA-C Primary Care Provider [phone] Encounter Details Date Type Department Care Team (Late st Contact Info) Description 06/13/2020 Lab Requisition [facility] DermPath Lab [address] [place] [id number] Tejinder Watkins MD [address] [place] [address] Social History Tobacco Use Types Packs/Day Years Used Date Smoking Tobacco: Never Assessed Comments Unknown Sex and Gender Information Value Date Recorded Sex Assigned at Not on file 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 Gender Identity Not on file Sexual Orientation Not on file documented as of this encounter Plan of Treatment Upcoming Encounters Date Type Department Care Team (Late st Contact Info) Description 01/22/2026 11:00 AM CDT Appointment [facility] Breast Care [address] [place] [address] [address] [place] [address] 01/22/2026 11:30 AM CDT Office Visit [facility] - Surgery [address] [place] [address], [address] [place] [address] Lauren Warren MD [address] [place] [address] [address] [place] [address] documented as of this encounter Procedures Procedure Name Priority Date/Time Associated Diagnosis Comments DERMATOPATHOLOGY Routine 06/12/2020 12:0 0 AM CDT documented in this encounter Results * DERMATOPATHOLOGY (06/12/2020 12:00 AM CDT) Case Report Dermatopathology Report Case: [id number] Authorizing Provider: Tejinder Watkins MD Collected: 06/12/2020 12:00 AM Ordering Location: [facility] D[facility] Lab Received: 06/13/2020 12:25 PM Pathologist: Eduarda Lai MD Specimen: Skin, left volar wrist 0 5:25 PM CDT DERMATOPATHOLOGY LABORATORY Final Diagnosis Specimen A. 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 0 5:25 PM CDT DERMATOPATHOLOGY LABORATORY Gross Description Specimen A: Received is one formalin filled container labeled with the patient's name and designated left volar wrist. The specimen consists of 2 punch biopsies measuring [id number], bisected and submitted in cassette 1, and [id number], bisected and submitted in cassette 2. Jar 0. 0 5:25 PM CDT DERMATOPATHOLOGY LABORATORY Microscopic Description Specimen A. SKIN, left volar wrist: Sections from both specimen show similar findings. There are lymphocytes around blood vessels and histiocytes between collagen bundles some of which are arranged in a palisade. The collagen is focally altered. 0 5:25 PM CDT DERMATOPATHOLOGY LABORATORY Disclaimer An external and internal positive and negative controls are appropriate for the histochemical, immunohistochemical and immunofluorescence stain(s) in this case (if any), except where stated explicitly. The performance characteristics of the stain(s) cited in this report were developed and its performance characteristic determined by the Dermatopathology Laboratory at [facility], directed by Dr. Suzan Lai. These tests need not be, and therefore are not, approved by the [place] Food and Drug Administration. The tests are used for clinical purposes. Billing Codes Specimen Charges Stain Charges 82185 1 0 5:25 PM CDT DERMATOPATHOLOGY LABORATORY Embedded Images 0 5:25 PM CDT DERMATOPATHOLOGY LABORATORY Pathology/Cytolog y TISSUE SPECIMEN FROM SKIN / Unknown 06/12/2020 06/13/2020 12:25 PM CDT Tejinder Watkins MD LAB - PATHOLOGY/CYTOLOGY ORD ERABLES Final Result DERMATOPATHOLOGY LABORATORY [facility] - Department of Dermatology Equipment Validation Engineer Center/[address] [phone] documented in this encounter Visit Diagnoses Not on filedocumented in this encounter Care Teams Spanish Lecturer Relationship Specialty Start Date End Date Unknown, Provider PCP - General 11/11/21 09/11/24 Ismael De La Cruz, NORMAC PCP - General 09/12/24 documented as of this encounter
--- OUTSIDE RECORDS SUMMARY | 2025-10-26 12:53 | XMS_ITS | Encounter Summary ---
Author Organization [facility] Address [address] [place] [address] Phone Care Team Providers Care Equipment Analyst Name Role Phone Hung Bay MD Primary Care Provi alejandro Haylee Montague NP Unavailable [phone] Ismael De La Cruz Primary Care Provider Nicholas Aguilera MD Unavailable Jurgen Maldonado MD Unavailable [phone] Emma Sheridan MD Unavailable Mariela Gonzalez MD Unavailable Dejan Wood DPM Unavailable [phone] Randal Hurst MD Unavailable [phone] Lauren Warren MD Unavailable [phone] Kalpana Sepulveda MD Unavailable Encounter Details Date Type Department Care Team (Late st Contact Info) Description 01/31/2018 Orders Only [facility] ProviderSiena MD [facility] [place] [address] Social History Tobacco Use Types Packs/Day Years Used Date Smoking Tobacco: Former Cigarettes 1 55 1 953 - 2008 Smokeless Tobacco: Never Alcohol Use Standard Drinks/Week Comments No 0 (1 standard drink = 0.6 oz pur e alcohol) Comments No Sex and Gender Information Value Date Recorded Sex Assigned at Not on file Legal Sex Female 11:51 PM RETAIL SPECIAL EVENT ASSOCIATE Gender Identity Female 11/03/2019 7:26 AM RETAIL SPECIAL EVENT ASSOCIATE Sexual Orientation Straight 12/29/2019 10 :21 AM RETAIL SPECIAL EVENT ASSOCIATE 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 Historical Provider LAB BLOOD ORDERABLES Jeanne l Result documented in this encounter Visit Diagnoses Not on filedocumented in this encounter Care Teams Equipment Analyst Relationship Specialty Start Date End Date Hung Bay MD PCP - General 02/05/17 07/18/22 Ismael De La Cruz PA [address] [facility] [address] [place] [address] [place] [address] PCP - General Internal Medicine 07/19/22 Haylee Montague NP [address] [address] Nurse Practitioner Urology 09/29/21 04/17/24 [place] [address] [address] Consulting Physician Pain Management 12/17/23 Jurgen Maldonado MD [address] [facility] [address] [place] [address] Consulting Physician Nephrology 04/18/24 [place] [address] [place] [address] Consulting Physician Urology 04/18/24 [place] [address] [place] [address] Consulting Physician Neurology 04/18/24 Dejan Wood DPM [address] [facility] [place] [address] Consulting Physician Orthotics 04/18/24 Randal Hurst MD [address] [place] [address] Referring Physician Hematology and Oncology 04/18/24 Lauren Warren MD [address] [facility] [address], [place] [id number] Consulting Physician General Surgery 04/18/24 Kalpana Sepulveda MD [address] [place] [address] Compensation Agent Obstetrics and Gynecology 04/18/24 documented as of this encounter
--- OUTSIDE RECORDS SUMMARY | 2025-10-26 12:53 | XMS_ITS | Clinical Summary ---
Author Organization [facility] Address [address] [place] [address] Care Team Providers Care Yard Brakeman Name Role Phone Ismael De La Cruz Primary Care Provider Nicholas Aguilera MD Unavailable [phone] Jurgen Ware MD Unavailable [phone] Emma Sheridan MD Unavailable Mariela Gonzalez MD Unavailable Dejan Wood DPM Unavailable [phone] Randal Hurst MD Unavailable [phone] Lauren Warren MD Unavailable [phone] Kalpana Sepulveda MD Unavailable Allergies Active Allergy Reactions Criticality Noted Date Comments Iodinated Contrast Media Other (See comments) High 02/25/2015 Pt only has one kidney Potential of causing the functioning kidney(left) to fail Morphine Other (See comments) Medium 02/25/2015 Declines because she only has one functioning kidney Respiratory depression, pt states due to use of verapamil Nitrofurantoin Nausea only Low 03/31/2024 Nsaids (Non-Steroidal Anti-Inflammatory Drug) Other (See comments) Low Contraindicated because of history or renal disease Sulfa Nausea only Low 04/18/2024 Medications aspirin 81 mg chewable tablet chew 1 tablet by oral route every day 0 0 07/23/20 15 Active syykl-ev-4-dha -pmp-gswsaiw-x st 1,496-765-28-8 0 mg capsuleIndicat ions:stop 5 days before surgery Take by mouth Active ascorbic acid (VITAMIN C) 500 mg tablet,chewabl e Take 1 tablet/chew tab (500 mg total) by mouth daily Active cholecalcifero l (VITAMIN D-3) 2,000 unit capsule Take 1 capsule (2,000 Units total) by mouth daily Active tamoxifen (NOLVADEX) 20 mg tablet Take 1 tablet (20 mg total) by mouth daily Active metoprolol XL (TOPROL-XL) 100 mg 24 hr tablet Take 1 tablet (100 mg total) by mouth nightly 04/01/20 18 Active multivit-min/f errous fumarate (MULTI VITAMIN ORAL) Take by mouth Active cephalexin (KEFLEX) 500 mg capsule Take 1 capsule (500 mg total) by mouth daily For UTI prevention (start after complete with the twice a day course) 90 capsule 3 02/03/20 25 Active escitalopram (LEXAPRO) 20 mg tablet TAKE 1 TABLET BY MOUTH EVERY DAY 90 tablet 3 02/08/20 25 Active clobetasoL (CLOBEX) 0.05 % shampoo PLEASE SEE ATTACHED FOR DETAILED DIRECTIONS 01/31/20 25 Active rosuvastatin (CRESTOR) 20 mg tablet Take 1 tablet (20 mg total) by mouth daily 90 tablet 3 03/21/20 25 Active cloNIDine (CATAPRES) 0.2 mg tablet TAKE 1 TABLET BY MOUTH NIGHTLY 90 tablet 1 06/18/20 25 Active buPROPion XL (WELLBUTRIN XL) 300 mg 24 hr tablet Take 1 tablet (300 mg total) by mouth every morning 90 tablet 4 06/19/20 25 026 Active omeprazole (PriLOSEC) 40 mg capsule TAKE 1 CAPSULE BY MOUTH EVERY DAY 90 capsule 3 08/01/20 25 Active verapamiL (CALAN) 80 mg tablet TAKE ONE AND ONE-HALF TABLETS BY MOUTH IN THE MORNING AND 1 TABLET AT NIGHT 225 tablet 09/17/20 25 Active fluocinonide (LIDEX) 0.05 % external solution APPLY TOPICALLY 2 (TWO) TIMES A DAY NEEDED FOR IRRITATION OR RASH 60 mL 1 09/28/20 25 Active Gemtesa 75 mg tablet Take 1 tablet by mouth daily 10/20/20 23 025 Discontinued furosemide (LASIX) 20 mg tablet Take 1 tablet (20 mg total) by mouth 2 (two) times a day 07/18/20 25 025 Hospital, Clinic, or Other Facility Administered Medication Ordered Dose Route Frequency Start Date End Date Status lidocaine (XYLOCAINE) 20 mg/mL (2 %) injection 100 mgIndications:Adminis tration of Local Anesthesia 100 mg OTHER Once 10/24/2025 10/24/2025 Ended lidocaine (XYLOCAINE) 20 mg/mL (2 %) injection 100 mgIndications:Adminis tration of Local Anesthesia 100 mg OTHER Once 10/24/2025 10/24/2025 Ended methylPREDNISolone acetate (DEPO-medrol) injection 80 mgIndications:Bilater al primary osteoarthritis of hip 80 mg intra-artic Once 10/24/2025 10/24/2025 En ded methylPREDNISolone acetate (DEPO-medrol) injection 80 mgIndications:Bilater al primary osteoarthritis of hip 80 mg intra-artic Once 10/24/2025 10/24/2025 En ded lidocaine (XYLOCAINE) 20 mg/mL (2 %) injection 80 mgIndications:Adminis tration of Local Anesthesia 80 mg OTHER Once 10/24/2025 10/24/2025 Ended lidocaine (XYLOCAINE) 20 mg/mL (2 %) injection 80 mgIndications:Adminis tration of Local Anesthesia 80 mg OTHER Once 10/24/2025 10/24/2025 Ended Active Problems Problem Noted Date Diagnosed Date [...] 03/18/20 Assessment & Plan (10/23/2025 12:15 PM CASTING SORTER): Injection done under ultrasound guidance as noted [...] 11/22/2019 Assessment & Plan (01/16/2021 11:15 AM CASTING SORTER): Using walked and struggles to get around Assessment & Plan (11/22/2019 10:48 AM CASTING SORTER): Stumbles and tends to f all. Setup [...] reductino Assessment & Plan (01/16/2021 11:19 AM CASTING SORTER): Tight risk controll and on goal and asa. Assessment & Plan (09/10/2020 1:52 PM CASTING SORTER): Tight risk controll with risk Assessment & Plan (03/25/2020 10:21 AM CDT): On asa and ldl low 49 and great no changes Assessment & Plan (11/22/2019 10:50 AM CASTING SORTER): Risk control and cont tight And asa. [...] 01/2019 Assessment & Plan (11/10/2018 10:52 AM CASTING SORTER): Start suport hose. ilimt salt and should controll. Hypertension, essential 09/02/2018 Assessment & Plan (03/21/2025 3:03 PM CDT): Recommend DASH diet, heart healthy lifestyle, exercise. Discussed the risks of hypertension. Assessment & Plan (08/18/2024 12:40 PM CDT): Recommend DASH diet, heart-healthy lifestyle, exercise. Discussed the risks of hypertension. Assessment & Plan (12/17/2023 12:34 PM CASTING SORTER): Recommend DASH diet, heart-healthy lifestyle, exercise. Discussed [...] bp. Assessment & Plan (09/29/2021 10:14 AM CASTING SORTER): The bp great and creat stable in [...] kidneys. Assessment & Plan (01/16/2021 11:13 AM CASTING SORTER): bp good and seeing renal in 2 [...] kidneys. Assessment & Plan (09/10/2020 1:54 PM CASTING SORTER): The bp good and no changs and renal stable see's renal Assessment & Plan (03/25/2020 10:23 AM CDT): Directed care with renal Assessment & Plan (11/22/2019 10:49 AM CASTING SORTER): Screens touch higher at 1.[address] ware in next monothHypertension, Medical treament revolves around [...] eturn in 2wks and adjst se's dr ware and will send not Assessment & Plan (03/09/2019 10:37 AM CDT): See's renal and bp good Assessment & Plan (11/10/2018 10:38 AM CASTING SORTER): bp good and bp better. Hypertension, Medical [...] 07/13/2018 Assessment & Plan (09/29/2021 10:23 AM CASTING SORTER): Walking and working to reduce Assessment & [...] (12/01/2017): Added automatically from request for surgery [id number] At high risk for falls per S chmid fall risk assessment scale 09/14/2017 Assessment & Plan (09/29/2021 10:24 AM CASTING SORTER): High fallrisk Assessment & Plan (09/10/2020 1:56 PM CASTING SORTER): Mod fall risk Assessment & Plan (07/19/2019 11:03 AM CDT): Gait still a strugle Assessment & Plan (09/14/2017 2:03 PM CASTING SORTER): Given knee giving out theen would work with the ortho to help to prevent . Recurrent major depressive disorder, in partial remission 09/14/2017 Assessment & Plan (02/25/2022 1:28 PM CDT): Depression stable and good. Assessment & Plan (09/29/2021 10:23 AM CASTING SORTER): Controlled and on same meds ansstay Assessment & Plan (04/15/2021 2:40 PM CDT): going to have major surg and dementia setting in.meds not working well.on lexapro. Trial seroquel at 1.2 a day and then wsworkup to 1 bid if needed. Stay on lexapro Assessment & Plan (09/10/2020 1:56 PM CASTING SORTER): Controlled with meds and stay on Assessment & Plan (03/25/2020 10:30 AM CDT): Stable and chronic and no med changs Assessment & Plan (11/22/2019 10:47 AM CASTING SORTER): On meds and well controlled no changes Assessment & Plan (07/19/2019 11:08 AM CDT): Replaces the 10 mg lexapro to 20 mg Assessment & Plan (03/15/2018 10:57 AM CDT): The depression wellcontrolled Assessment & Plan (09/14/2017 2:03 PM CASTING SORTER): Well controlled and no changes Class 3 severe obesity due t o excess calories with serious comorbidity and body mass index (BMI) of 45.0 to 49.9 in adult 09/14/2017 Assessment & Plan (02/12/2023 1:00 PM CDT): She was counseled on the importance of maintaining a healthy weight and the risks of obesity. Weight loss recommended. Assessment & Plan (10/07/2022 12:21 PM CASTING SORTER): She was counseled on the importance of [...] work. Assessment & Plan (09/29/2021 10:12 AM CASTING SORTER): Morbid obesity is a bmi of 40 [...] wks Assessment & Plan (01/16/2021 11:13 AM CASTING SORTER): Morbid obesity is a bmi of 40 or more. Targeted weight loss with portion controll(calorie restriction) ,increased basal activity Levels along with adding an exercise program to lead to gradual weight loss,.Any program of change from weight watchers. To nutra system along with others work. Assessment & Plan (09/10/2020 2:07 PM CASTING SORTER): Morbid obesity is a bmi of 40 [...] work. Assessment & Plan (11/22/2019 10:49 AM CASTING SORTER): Morbid obesity is a bmi of 40 [...] work. Assessment & Plan (11/10/2018 10:52 AM CASTING SORTER): Morbid obesity is a bmi of 40 [...] tolerated. Assessment & Plan (09/14/2017 2:05 PM CASTING SORTER): Morbid obesity is a bmi of 40 or more. Targeted weight loss with portion controll(calorie restriction) ,increased basal activity Levels along with adding an exercise program to lead to gradual weight loss,.Any program of change from weight watchers. To nutra system along with others work. Mild intermittent asthma without complication Assessment & Plan (09/14/2017 2:09 PM CASTING SORTER): Asthma is the excess production of secretions [...] 09/14/2017 Assessment & Plan (09/14/2017 2:17 PM CASTING SORTER): Low dose xanax for flight only. Atypical hyperplasia of breast 01/03/2016 Breast neoplasm, Tis (LCIS) 01/03/2016 Assessment & Plan (11/22/2019 10:51 AM CASTING SORTER): On tamoxifne and see's sitemans Assessment & [...] kidneys. Assessment & Plan (09/29/2021 10:12 AM CASTING SORTER): Stable and creat varies but all cr cl normal cisne one low [address] ware Assessment & Plan (01/21/2021 1:59 PM CDT): See's renal and yr'ly with last gfr level 1 crf. Due to see them in nedt month Assessment & Plan (07/19/2019 11:05 AM CDT): See's renal md and monitored Assessment & Plan (11/10/2018 10:30 AM CASTING SORTER): Creat droped to n. And seeing renal Assessment & Plan (07/13/2018 10:37 AM CDT): Knows should not use ppi And zantac Assessment & Plan (03/15/2018 10:56 AM CDT): Renal md seeing and monitoring Assessment & Plan (01/31/2018 10:33 AM CDT): Creatinine was 1.10. Continue to monitor blood pressure and certainly to see Dr. Ware as scheduled. Continue with office visit in a month for repeat labs in office with Dr. Bay Assessment & Plan (09/14/2017 2:07 PM CASTING SORTER): Micro allbumen nl at 6. Repeat 24 [...] well Assessment & Plan (11/10/2018 10:53 AM CASTING SORTER): Sleep apnea and radha recio And referring radha dr gonzalez for Rx. Treating the sleep apne will help. referal to dr gonzalez and if not from dr recio then call for a Referral. Assessment & Plan (09/14/2017 2:10 PM CASTING SORTER): lst study 5 yrs ago. As poanning [...] stable Assessment & Plan (09/29/2021 10:22 AM CASTING SORTER): ldl at 55 and great and no [...] limited. Assessment & Plan (01/16/2021 11:14 AM CASTING SORTER): ldl 59 And trig droped to 200 [...] limited. Assessment & Plan (09/10/2020 1:55 PM CASTING SORTER): ldl 56 and great controll. Your cholesterol [...] limited. Assessment & Plan (11/22/2019 10:46 AM CASTING SORTER): tarigs 299 and up some and ldl [...] limited. Assessment & Plan (11/10/2018 10:57 AM CASTING SORTER): ldl at 52 and good. No changesYour [...] bp. Assessment & Plan (09/14/2017 2:06 PM CASTING SORTER): ldl at 45 and good. No changesYour [...] rosacea Assessment & Plan (09/14/2017 2:06 PM CASTING SORTER): Well controlled. Mitral valve prolapse 01/29/2012 Overview (02/12/2017): MVP (mitral valve prolapse) Osteoarthritis 01/29/2012 Overview (02/12/2017): Osteoarthritis Resolved Problems Problem Noted Date Diagnosed Date Resolved Date Nausea and vomiting 09/19/2024 01/23/20 25 Pre-procedure lab exam 05/26/202312/18 Bilateral hip pain 01/12/2023 5 Dysphagia 11/24/2022 02/12/2023 Overview (01/05/2023): Added automatically from request for surgery [id number] Other emphysema 02/25/2022 04/18/2024 Assessment & Plan (02/25/2022 1:31 PM CDT): On ct and stable Facial aging 10/11/2021 10/07/2022 Pain in right upper arm 05/14/2021 02/ Assessment & Plan (05/14/2021 1:33 PM CDT): Local area that Comes and goes no massses and not tender . No evidence of pinch nerve. Report and Follow up on Constipation 08/30/2020 02/12/2023 Assessment & Plan (09/10/2020 1:54 PM CASTING SORTER): Push up the miralax to 1.5 pack [...] return prn. Shortness of breath 07/03/2019 10/07/20 Assessment & Plan (07/03/2019 12:14 PM CDT): No correllation with shoulders activty or not. No cough. No chest pain with bmi 43 and inactvity likely the Package. Declines referral to pulm for eval.ekg rate 64. Nsr. [place] 15. Nl. No cardiac indication from ekg or story to suport cardiac but offered stress test to homero for and delicned Bullous myringitis, right 08/19/2018 Assessment & Plan (08/19/2018 12:17 PM CDT): Recommended corticosteroid burst, Flonase nasal spray, antihistamines [id number] (if tolerated as patient notes poor tolerance [...] performing. Assessment & Plan (11/10/2018 10:31 AM CASTING SORTER): Morbid obesity is a bmi of 40 [...] to have something else extra for pain, Wharton was prescribed only p.r.n. use. [facility] state prescription monitoring program was checked prior [...] discussed Assessment & Plan (11/10/2018 10:48 AM CASTING SORTER): Reproducible. Will eb and flux. Non rx. No meds. strecth abnd time Assessment & Plan (04/21/2018 3:33 PM CDT): Post trauma jody working. Well. Influenza A 01/31/2018 03/15/2018 Assessment & Plan (01/31/2018 10:33 AM CDT): Asymptomatic aside from mild cough in office. Continue to push fluids continued Mucinex [id number] only p.r.n. and certainly follow up with [...] need to continue management, stop medication, or change control manager pending results IGT (impaired glucose tolerance) 09/14/2017 02/12/2023 Assessment & Plan (06/10/2022 1:35 PM CDT): a1c at 5.4 Assessment & Plan (02/25/2022 1:30 PM CDT): a1c at 5.4 and nl Assessment & Plan (09/29/2021 10:15 AM CASTING SORTER): a1c 5.1 Assessment & Plan (05/14/2021 1:28 PM CDT): Work diet and wt. And neww med for card reduction tolerated and cont Assessment & Plan (04/15/2021 2:38 PM CDT): Start farxiga for cv risk reduction Assessment & Plan (01/16/2021 11:15 AM CASTING SORTER): a1c 5.2 Assessment & Plan (09/10/2020 1:55 PM CASTING SORTER): a1c at 5,1 and nl. Assessment & Plan (03/25/2020 10:24 AM CDT): a1c at 5.6 and 5.6 nl Assessment & Plan (11/22/2019 10:47 AM CASTING SORTER): a1c at 5.3 and 5.6 upper nl Assessment & Plan (07/19/2019 11:06 AM CDT): a1c at 5.6 and nl. Assessment & Plan (03/09/2019 10:36 AM CDT): a1c at 5.0 and nl Assessment & Plan (11/10/2018 10:37 AM CASTING SORTER): a1c at 5.1 ands nl Assessment & Plan (07/13/2018 10:31 AM CDT): a1c at 5.4 and 5.6 and lesnl. Assessment & Plan (03/15/2018 10:55 AM CDT): a1c at 5.5 and Good. Assessment & Plan (09/14/2017 2:05 PM CASTING SORTER): a1c at 5.3 and good. No chages Coronary artery disease of n ative artery of [place] heart with stable angina pectoris 09/14/2017 01/22/2025 Assessment & Plan (09/29/2021 10:14 AM CASTING SORTER): Chest pain free. Stay on meds Assessment & Plan (04/15/2021 2:42 PM CDT): Can and chest pain stable and cont meds and farxiga. For risk recduction Assessment & Plan (01/16/2021 11:12 AM CASTING SORTER): Chest pian Free and cont meds Assessment & Plan (09/10/2020 1:50 PM CASTING SORTER): Stable chest pain Assessment & Plan (03/25/2020 10:22 AM CDT): Cad stable and pain frfee and no changs Assessment & Plan (11/22/2019 10:50 AM CASTING SORTER): Cad stable and pain free with meds [...] stable. Assessment & Plan (11/10/2018 10:49 AM CASTING SORTER): Chest pain reassessed and pain free Assessment & Plan (03/15/2018 10:58 AM CDT): No heart pain with meds and working to controll risk of bp Assessment & Plan (09/14/2017 2:08 PM CASTING SORTER): Heart stable and cont meds and controll risk. Daily asa 81 Encounter for Medicare annual wellness exam 09/14/2017 03/19/2025 Assessment & Plan (09/10/2020 2:03 PM CASTING SORTER): Mod fallrisk deprisno screen nl cog sc [...] series. Assessment & Plan (09/14/2017 2:13 PM CASTING SORTER): Screening labs for chemistries. Thyroid. Urine protein [...] HYPERTENSION Assessment & Plan (10/07/2022 12:20 PM CASTING SORTER): Recommend DASH diet, heart-healthy lifestyle, exercise. Discussed [...] bp. Assessment & Plan (09/29/2021 10:09 AM CASTING SORTER): The bp good and keep meds asameHypertension, [...] bp. Assessment & Plan (01/16/2021 11:12 AM CASTING SORTER): bp good and no chagds in meds [...] bp. Assessment & Plan (09/10/2020 1:51 PM CASTING SORTER): The bp good and no chaHypertension, Medical [...] instruction Assessment & Plan (11/22/2019 10:44 AM CASTING SORTER): bp away high and heere nl. When see's ware the renal ask about bp and rx.Hypertension, [...] bp. Assessment & Plan (11/10/2018 10:30 AM CASTING SORTER): athe bp good and meds adjusted. Hypertension, [...] CDT): bp on high side and dr ware Reported directed her that his office was [...] reach the goal bp.bp reviewed with dr ware directing. Discussed time to take meds and [...] after Assessment & Plan (09/14/2017 2:08 PM CASTING SORTER): bp well controled and stay on medsHypertension, [...] disease) Assessment & Plan (09/10/2020 1:52 PM CASTING SORTER): Ideally not to take ppil Assessment & Plan (03/25/2020 10:23 AM CDT): On and off and limit ppi's for renal. Assessment & Plan (09/14/2017 2:07 PM CASTING SORTER): gerd is best treated with life style [...] breakthru Hypertension 01/29/2012 09/14/2017 Overview (02/12/2017): Hypertension Encounters Date Type Department Care Team Description 10/25/2025 11:00 AM CASTING SORTER Office Visit [facility] [address] [place] [address] [address] [place] [address] Mariela Gonzalez MD FRANCISCO (obstructive sleep apnea) (Primary Dx); Hypersomnia with sleep apnea; Morbid obesity with BMI of 40.0-44.9, adult (HCC) 10/24/2025 Telephone [facility] [address] [place] [address] [address] [place] [address] Jorge Antonio MD 10/23/2025 11:30 AM CASTING SORTER Office Visit [facility] Primary [facility] at [address] [place] [address] Severiano Kowalski DO Bilateral primary osteoarthritis of hip (Primary Dx) 10/16/2025 1:45 PM CASTING SORTER - 10/16/2025 11:59 PM CASTING SORTER Hospital Encounter [facility] [address] [place] [address] Lung nodule Discharge Disposition: Discharge to home or self care 10/15/2025 Telephone [facility] [address] [place] [address] Altagracia Bowman 10/02/2025 Telephone [facility] [address] [place] [address] [address] [place] [address] Sheridan Goldberg MA 09/27/2025 Telephone [facility] at [address] [place] [address] Shalini Sheridan 09/26/2025 2:04 PM CASTING SORTER - 09/26/2025 11:59 PM CASTING SORTER Hospital Encounter [facility] [address] [place] [address] Discharge Disposition: Discharge to home or self care 09/26/2025 11:00 AM CASTING SORTER Lab [facility] [address] [place] [address] Class 3 severe obesity due to excess calories with serious comorbidity and body mass index (BMI) of 45.0 to 49.9 in adult; IFG (impaired fasting glucose); Hypertension, essential; Stage 3a chronic kidney disease (HCC); Vitamin D deficiency; Multiple-type hyperlipidemia 09/26/2025 10:45 AM CASTING SORTER Lab [facility] [address] [place] [address] 09/17/2025 Orders Only [facility] at [address] [place] [phone] Ismael De La Cruz PA 09/17/2025 Telephone [facility] at [address] [phone] Ismael De La Cruz PA Medical Question/Miscellaneo us 08/22/2025 11:30 AM CDT Office Visit [facility] at [address] [place] [phone] Severiano Kowalski DO Bilateral primary osteoarthritis of hip (Primary Dx) 08/22/2025 Telephone [facility] [address] [place] [address] Danette Infante MA 08/20/2025 2:45 PM CDT Immunization [facility] [address] [address] Flu vaccine need (Primary Dx) from Last 3 Months Immunizations Immunization Administration Dates Next Due Influenza, Quad, Adjuvantate d, Intramuscular 09/11/2023 Influenza, Quadrivalent, Hig h Dose, Preservative Free, Intrr 10/07/2022,09/29/2021,09/10/2020 Influenza, Split 09/01/2012,09/01/2010 Influenza, Trivalent, High D ose, Split, Preservative Free, Intramuscular 08/20/2025,08/18/2024,08/31/2019,09/02,09/14/2017,09/04/2016,09/25/2015 ,08/27/2014,08/27/2014,08/30/2013 Influenza, Trivalent, IM (MDV) 08/13/2011,2008,09/17/2008 Influenza, Unspecified 08/18/2024(Deferr ed: Patient Refused - not available) Pfizer SARS-CoV-2 Monovalent Vaccination (12+ Yrs) PURPLE 10/13/2021,01/23/2021,01/02/2021 Pneumococcal Conjugate PCV 13 09/25/2015, 014,08/27/2014 Pneumococcal Polysaccharide PPV23 10/07/2016,07/2009,10/07/2004 Td, adsorbed 11/18/2002 Tdap 07/17/2014,07/17/2014 Varicella Zoster Immune Globulin 04/04/2009 ZOSTER LIVE 04/04/2009 ZOSTER Recombinant 12/14/2018,09/05/2018, 018 Surgical History Surgery Date Site/Laterality Comments TUBAL LIGATION BREAST EXCISIONAL BIOPSY 11/08/2014 - 11/07/2015 lobular CIS: excisional biopsy, Tamoxifen BREAST BIOPSY 2000 & 2004 LAPAROSCOPIC TOTAL HYSTERECTOMY 11/08/2014 - 11/07/2015 postmenopausal bleeding BUNIONECTOMY 11/08/2015 - 11/07/2016 KNEE ARTHROSCOPY 11/08/2012 - 11/07/2013 Left VAGINA SURGERY 11/08/2001 - 11/07/2002 VAIN I-II: excision DILATION AND CURETTAGE OF UTERUS 3 - 11/07/2013 CERVICAL CONE BIOPSY 11/08/1990 - 11/07/1991 BILATERAL SALPINGOOPHORECTOMY 11/08/2012 - 11/07/2013 right ovarian cyst and endometrial polyp: laparoscopic BSO and hysteroscopy with polypectomy & D&C TOE SURGERY 11/08/2012 - 11/07/2013 Right bone removed from her toe CORRECTION HAMMER TOE Right CATARACT EXTRACTION, BILATERAL 11/08/2012 - 11/07/2013 EYE SURGERY 11/08/1953 - 11[birth year]07[birth year]1954 Left COLONOSCOPY 12/09/2017 - 01/05/2018 COLONOSCOPY 01/29/2023 FLUORO GUIDED ASPIRATION TMJ LEFT 08/24/2023 Left TOTAL KNEE ARTHROPLASTY Bilateral ESOPHAGOGASTRODUODENOSCOPY HYSTERECTOMY COSMETIC SURGERY CATARACT EXTRACTION Medical History Medical History Date Comments Osteoarthritis Mitral valve prolapse GERD (gastroesophageal reflu x disease) 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 Low bone mass CKD (chronic kidney disease) Morbid obesity (HCC) Adenomatous colon polyp DDD (degenerative disc disea se), lumbar FRANCISCO (obstructive sleep apnea) WALESKA (generalized anxiety disorder) Ischemic colitis Cataract removed several yrs ago Osteoporosis Heart disease MVP Family History Medical History Relation Name Comments Cancer Brother Robert Hurst Depression Brother Robert Hurst Multiple sclerosis Brother Robert Natali Other Cousin IHSS; idiopathi c hypertrophic subaortic stenosis Hearing loss Daughter Lorna Jack. Self Kidney disease Daughter Lorna Jack. Self Obesity Daughter Lorna Jack. Self Bladder Cancer Father IHSS & MVP COPD Father IHSS & MVP Cancer Father IHSS & MVP Heart disease Father IHSS & MVP Kidney cancer Father IHSS & MVP Other Father IHSS & MVP IHSS; idiopathi c hypertropic subaortic stenosis Breast cancer Father's Sister more than o ne aunt Colon cancer Maternal Grandmother Arthritis Mother Ly Hurst Coronary artery disease Mother Ly Hurst Diabetes Mother Ly Hurst Hyperlipidemia Mother Ly Hurst Hypertension Mother Ly Hurst Miscarriages / Stillbirths Mother Ly Hurst Relation Name Status Comments Brother Robert Hurst Cousin Daughter Lorna Jack. 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 Not on file Not on file Not on file Obstetrics History Para Term AB IAB SAB Ectopic Multiple Livin g Live Births 5 4 4 0 1 0 1 0 0 4 4 Date Outcome GA Total Labor Labor/2nd/3rd Weight Sex Type Anes PTL Mary Jo A1 A5 Name Clin Term Term Term Term SAB Last Filed Vital Signs Vital Sign Reading Time Taken Comments Blood Pressure 111/94 10/25/2025 11:09 AM CASTING SORTER Pulse 66 10/25/2025 11:09 AM CASTING SORTER Temperature 36.8 C (98.2 F) 03/21/2025 2:15 PM CDT Respiratory Rate 16 03/21/2025 2:15 PM CDT Oxygen Saturation 95% 10/25/2025 11:09 AM CASTING SORTER Inhaled Oxygen Concentration - - Weight 120.2 kg (265 lb) 10/25/2025 11:09 AM CASTING SORTER Height 160 cm (5' 2.99) 10/25/2025 11:09 AM CASTING SORTER Body Mass Index 46.95 10/25/2025 11:09 AM CASTING SORTER Plan of Treatment Health Maintenance Due Date Last Done Comments DTaP/Tdap/Td Vaccine (3 - Td or Tdap) 07/17/2024 07/17/2014, 07/17/2014, 11/18/2002 Covid-19 Vaccine (4 - 2024-2 6 season) 2025 10/13/2021, 01/23/2021, 01/02/2021 Breast Cancer Screening-Mammogram 01/18/2026 01/18/2025, 01/18/2025, 11/16/2023, Additional history exists Well Visit 65+ 03/21/2026 03/21/2025, 07/2024, 10/07/2022, Additional history exists Depression Screening 06/19/2026 06/19/2025, 03/21/2025, 01/22/2025, Additional history exists Fall Risk Assessment 06/19/2026 06/19/2025, 03/21/2025, 01/22/2025, Additional history exists Osteoporosis Screening-Bone Density Scan 01/02/2027 01/02/2025, 10/19/2022, 01/03/2021, Additional history exists Pneumococcal vaccine 65+ Completed 016, 09/25/2015, 08/27/2014, Additional history exists Hepatitis C Screening Completed 01/06/2017 Zoster Vaccine Completed 12/14/2018, 08/09, 09/05/2018, Additional history exists Colon Cancer Screening-CT Colonography Discontinued 01/29/2023, 12/21/2017, 10/11/2014, Additional history exists Colon Cancer Screening-Colonoscopy Discontinued 01/29/2023, 12/21/2017, 10/11/2014, Additional history exists Colon Cancer Screening-DNA Stool Discontinued 01/29/2023, 12/21/2017, 10/11/2014, Additional history exists Colon Cancer Screening-FIT Discontinued 01/29, 12/21/2017, 10/11/2014, Additional history exists Colon Cancer Screening-FOBT Discontinued 01/07, 12/21/2017, 10/11/2014, Additional history exists Colon Cancer Screening-Sigmoidoscopy Discontinued 01/29/2023, 12/21/2017, 10/11/2014, Additional history exists Colorectal Cancer Screening Discontinued Hepatitis B Screening Completed 12/13/2024 Influenza Vaccine Completed 08/20/2025, , 09/11/2023, Additional history exists Medical Devices Implanted Type Area Double Backer Device Identifier Shelf Expiration Date Model / Serial / Lot Bone Bone Knee 2Xl Bar[employer] [id number] Flaquita 2mm 14mm Snap Off Self Tap Self Drill Foot Hand Screw - [id number] Implanted:Qty: 1 on 08/18/2019 by Severiano Wood DPM at [facility] [employer] [id number] / / Procedures Procedure Name Priority Date/Time Associated Diagnosis Comments CT CHEST WO CONTRAST Schedule Routine, Read Routine (OP Routine) 10/16/2025 2:15 PM CASTING SORTER Lung nodule PROTEIN / CREATININE RATIO, URINE, RANDOM Routine 09/26/2025 2:11 PM CASTING SORTER SODIUM, URINE, RANDOM Routine 09/26/2025 2:11 PM CASTING SORTER EGFR Routine 09/26/2025 10:47 AM CASTING SORTER DIFFERENTIAL AUTO Routine 09/26/2025 10:47 AM CASTING SORTER PRO B-TYPE NATRIURETIC PEPTIDE Routine 09/26/2025 10:47 AM CASTING SORTER RENAL FUNCTION PANEL Routine 09/26/2025 10:47 AM CASTING SORTER CBC WITH AUTO DIFFERENTIAL Routine 09/26/2025 10:47 AM CASTING SORTER EGFR Routine 09/26/2025 10:44 AM CASTING SORTER Class 3 severe obesity due to excess calories with serious comorbidity and body mass index (BMI) of 45.0 to 49.9 in adult IFG (impaired fasting glucose) Hypertension, essential Stage 3a chronic kidney disease (HCC) Vitamin D deficiency Multiple-type hyperlipidemia VITAMIN D 25 HYDROXY Routine 09/26/2025 10:44 AM CASTING SORTER Class 3 severe obesity due to excess calories with serious comorbidity and body mass index (BMI) of 45.0 to 49.9 in adult IFG (impaired fasting glucose) Hypertension, essential Stage 3a chronic kidney disease (HCC) Vitamin D deficiency Multiple-type hyperlipidemia LIPID PANEL Routine 09/26/2025 10:44 AM CASTING SORTER Class 3 severe obesity due to excess calories with serious comorbidity and body mass index (BMI) of 45.0 to 49.9 in adult IFG (impaired fasting glucose) Hypertension, essential Stage 3a chronic kidney disease (HCC) Vitamin D deficiency Multiple-type hyperlipidemia HEMOGLOBIN A1C Routine 09/26/2025 10:44 AM CASTING SORTER Class 3 severe obesity due to excess calories with serious comorbidity and body mass index (BMI) of 45.0 to 49.9 in adult IFG (impaired fasting glucose) Hypertension, essential Stage 3a chronic kidney disease (HCC) Vitamin D deficiency Multiple-type hyperlipidemia COMPREHENSIVE METABOLIC PANEL Routine 09/26/2025 10:44 AM CASTING SORTER Class 3 severe obesity due to excess calories with serious comorbidity and body mass index (BMI) of 45.0 to 49.9 in adult IFG (impaired fasting glucose) Hypertension, essential Stage 3a chronic kidney disease (HCC) Vitamin D deficiency Multiple-type hyperlipidemia DEXA AXIAL SKELETON BONE DENSITY 1 OR MORE SITES Schedule Routine, Read Routine (OP Routine) 01/02/2025 1:50 PM CASTING SORTER Osteopenia of multiple sites COLONOSCOPY 01/29/2023 7:15 AM CDT SCREENING MAMMOGRAM 2D BILATERAL Schedule Routine, Read Routine (OP Routine) 01/26/2020 HM HEPATITIS C SCREENING Routine 01/06/2017 from Last 3 Months or Most Recently Relevant to Health Maintenance Results * CT chest without contrast (10/16/2025 2:15 PM CASTING SORTER) Anatomical Region Laterality Modality Body N/A Computed Tomogra phy 10/19/2025 10:4 6 AM CASTING SORTER Impressions 10/19/2025 10:46 AM CASTING SORTER Several tiny nondependent nodules are seen within the trachea measuring maximum of 0.4 cm, unchanged. Given the persistence of findings these likely represent true findings. Consider correlation with direct visualization and tissue sampling as clinically warranted. Large hiatal hernia containing the majority of stomach Hepatic steatosis Pulmonary nodules as above, stable. No new pulmonary nodules are seen. Electronically signed by: Carlos Kruse M.D. Narrative 10/19/2025 10:46 AM CASTING SORTER EXAMINATION: CT CHEST WO CONTRAST HISTORY: tracheal nodules. TECHNIQUE: CT scan of the chest without intravenous contrast. Reconstructed coronal and sagittal MPR images reviewed. All images stored on PACS. Automated exposure control was used as a dose optimization technique for this examination. COMPARISON: CT dated June 02, 2025 FINDINGS: HEART: Normal heart size without pericardial effusion. VASCULATURE: No thoracic aortic aneurysm. MEDIASTINUM/BETO: No identified masses. No abnormal lymph nodes by size criteria. LUNGS/PLEURA: The central airway is patent. Mild emphysema. Biapical pleural-parenchymal scarring. There are numerous nodules that are nondependent seen within the trachea measuring up to 0.4 cm. These appear relatively stable compared to the prior examination. 0.3 cm pulmonary nodule right upper lobe (axial image 40). 0.4 cm pulmonary nodule right middle lobe (axial image 43 cm stable). 0.3 cm pleural nodule abutting the pleura laterally (axial image 40). 0.6 cm pulmonary nodule left lower lobe (axial image 59 cm stable). (AXILLA: No adenopathy. CHEST WALL: No masses. No soft tissue gas. HARDWARE/LINES/TUBES: None. UPPER ABDOMEN: Atrophy of the right kidney with a cyst. There is a very large hiatal hernia containing the majority of the stomach. Comparison CT dated June 02, 2025 MUSCULOSKELETAL: No acute findings. OTHER: No other acute abnormality. Procedure Note Carlos Kruse MD - 10/19/2025 EXAMINATION: CT CHEST WO CONTRAST HISTORY: tracheal nodules. TECHNIQUE: CT scan of the chest without intravenous contrast. Reconstructed coronal and sagittal MPR images reviewed. All images stored on PACS. Automated exposure control was used as a dose optimization technique for this examination. COMPARISON: CT dated June 02, 2025 FINDINGS: HEART: Normal heart size without pericardial effusion. VASCULATURE: No thoracic aortic aneurysm. MEDIASTINUM/BETO: No identified masses. No abnormal lymph nodes by size criteria. LUNGS/PLEURA: The central airway is patent. Mild emphysema. Biapical pleural-parenchymal scarring. There are numerous nodules that are nondependent seen within the trachea measuring up to 0.4 cm. These appear relatively stable compared to the prior examination. 0.3 cm pulmonary nodule right upper lobe (axial image 40). 0.4 cm pulmonary nodule right middle lobe (axial image 43 cm stable). 0.3 cm pleural nodule abutting the pleura laterally (axial image 40). 0.6 cm pulmonary nodule left lower lobe (axial image 59 cm stable). (AXILLA: No adenopathy. CHEST WALL: No masses. No soft tissue gas. HARDWARE/LINES/TUBES: None. UPPER ABDOMEN: Atrophy of the right kidney with a cyst. There is a very large hiatal hernia containing the majority of the stomach. Comparison CT dated June 02, 2025 MUSCULOSKELETAL: No acute findings. OTHER: No other acute abnormality. IMPRESSION: Several tiny nondependent nodules are seen within the trachea measuring maximum of 0.4 cm, unchanged. Given the persistence of findings these likely represent true findings. Consider correlation with direct visualization and tissue sampling as clinically warranted. Large hiatal hernia containing the majority of stomach Hepatic steatosis Pulmonary nodules as above, stable. No new pulmonary nodules are seen. Electronically signed by: Carlos Kruse M.D. Scot Lino MD [facility] CT PROCEDURES Final Result * Protein / creatinine ratio, urine, random (09/26/2025 2:11 PM CASTING SORTER) Protein, ur, quant 26.3 mg/dL Comment: Interpretive Data No reference range established. Current interpretive data was last revised 2019. Testing performed by: [facility], [address] [place] [address], [place]., [address] Creatinine Ur 190.8 mg/dL LALITO KNIGHT (NAVEEN) Comment: Interpretive Data No reference range established. Current interpretive data was last revised 2019. Testing performed by: [facility], [address] [place] [address]., [address] Protein/creatinin e ratio 137.8 0.0 - 180.0 mg/g CR LALITO KNIGHT (NAVEEN) Comment:Testing performed by : [facility], [address] [place] [address]., [id number] Urine 09/26/2025 2:11 PM CASTING SORTER 09/26/2025 2:11 PM CASTING SORTER Jurgen Ware MD LAB URINE ORDERABLES Final Re sult Performing Organization Address City/[facility]/ZIP Co de Phone Number LALITO KNIGHT (NAVEEN) 1 [facility] [employer] [place] [employer] [place] [address] * Sodium, urine, random (09/26/2025 2:11 PM CASTING SORTER) Sodium, ur 128 mmol/L Comment: Interpretive Data No reference range established. Current interpretive data was last revised 2019. Testing performed by: [facility], [address] [place] [address]., [address] Urine 09/26/2025 2:11 PM CASTING SORTER 09/26/2025 2:11 PM CASTING SORTER Narrative LALITO KNIGHT (NAVEEN) - 09/26/2025 7:11 PM CASTING SORTER No normal range No normal range Jurgen Ware MD LAB URINE ORDERABLES Final Re sult LALITO KNIGHT (NAVE[place]) 1 [facility] [place] [employer] [place] [address] * (ABNORMAL) eGFR (09/26/2025 10:47 AM CASTING SORTER) eGFR 53(L) >=60 mL/min/1. 73 m2 Comment: Interpretive Data Reference Interval Normal >/= 90 mL/min/1.73m2 Mildly decreased* 60 - 89 mL/min/1.73m2 Mildly to moderately decreased 45 - 59 mL/min/1.73m2 Moderately to severely decreased 30 - 44 mL/min/1.73m2 Severely decreased 15 - 29 mL/min/1.73m2 Kidney Failure < 15 mL/min/1.73m2 *Relative to young adult level Estimated glomerular filtration rate is determined by the 2020 CKD-EPI equation recommended by the National Kidney Foundation (A Unifying Approach to GFR Estimation: Recommendations of the NKF-ASK Task Force on Reassessing the Inclusion of Race in Diagnosing Kidney Disease, JASN 2020). The CKD-EPI equation should not be used for patients with unstable renal function and has not been validated in children and those over 70. Current interpretive data was last reviewed 2021. Testing performed by: [address] [address] Blood 09/26/2025 10:4 7 AM CASTING SORTER 09/26/2025 6:24 PM CASTING SORTER Jurgen Ware MD LAB BLOOD ORDERABLES Final Re sult LALITO KNIGHT ([place]) 1 [facility] Department [place] [address] * Differential, auto (09/26/2025 10:47 AM CASTING SORTER) Neutrophil abs 4.83 1.50 - 6.50 K/cumm Comment:Testing performed by : [facility], [address] [place] [address]., [address] Imm gran abs 0.02 0.00 - 0.10 K/cumm [facility] ([place]) Comment:Testing performed by : [address] [address] Lymphocyte abs 1.15 0.80 - 3.30 K/cumm [facility] ([place]) Comment:Testing performed by : [address] [address] Monocyte abs 0.42 0.20 - 0.80 K/cumm [facility] ([place]) Comment:Testing performed by : [address], [address] Eosinophil abs 0.34 0.00 - 0.50 K/cumm [facility] ([place]) Comment:Testing performed by : [facility], [address] [place] [address]., [address] Basophil abs 0.05 0.00 - 0.10 K/cumm [facility] ([place]) Comment:Testing performed by : [facility], [address] [place] [address]., [address] Neutrophil pct 70.9 % [facility] (NAVE[place]) Comment: Interpretive Data Percent cell count reference ranges are not reported, since discordance with absolute values may lead to misinterpretation of CBC data. Current Interpretive Data was last revised on 2018. Testing performed by: [facility], [address] [place] [address]., [address] Imm gran pct 0.3 % [facility] ([place]) Comment: Interpretive Data Percent cell count reference ranges are not reported, since discordance with absolute values may lead to misinterpretation of CBC data. Current Interpretive Data was last revised on 2018. Testing performed by: [facility], [address] [place] [address]., [address] Lymphocyte pct 16.9 % [facility] ([place]) Comment: Interpretive Data Percent cell count reference ranges are not reported, since discordance with absolute values may lead to misinterpretation of CBC data. Current Interpretive Data was last revised on 2018. Testing performed by: [facility], [address] [place] [address]., [address] Monocyte pct 6.2 % [facility] ([place]) Comment: Interpretive Data Percent cell count reference ranges are not reported, since discordance with absolute values may lead to misinterpretation of CBC data. Current Interpretive Data was last revised on 2018. Testing performed by: [facility], [address] [place] [address]., [address] Eosinophil pct 5.0 % [facility] ([place]) Comment: Interpretive Data Percent cell count reference ranges are not reported, since discordance with absolute values may lead to misinterpretation of CBC data. Current Interpretive Data was last revised on 2018. Testing performed by: [facility], [address] [place] [address]., [address] Basophil pct 0.7 % [facility] ([place]) Comment: Interpretive Data Percent cell count reference ranges are not reported, since discordance with absolute values may lead to misinterpretation of CBC data. Current Interpretive Data was last revised on 2018. Testing performed by: [facility], [address] [place] [address], [place]., [address] Blood 09/26/2025 10:4 7 AM CASTING SORTER 09/26/2025 6:24 PM CASTING SORTER us Jurgen Ware MD LAB BLOOD ORDERABLES Final Re sult [facility] [place]) 1 [facility] Department [place] [address] * (ABNORMAL) Pro B-type natriuretic peptide (09/26/2025 10:47 AM CASTING SORTER) NT-proBNP 452(H) <=450 pg/mL Comment: Interpretive Comments: A. Dyspnea in Acute Care Setting All Ages: < 300 pg/ml, acute heart failure unlikely. < 50 yrs: 300 - 450 pg/ml, further investigation warranted. > 450 pg/ml, acute heart failure likely. 50 - 74 yrs: 300 - 900 pg/ml, further investigation warranted. > 900 pg/ml, acute heart failure likely . > or = 75 yrs: 450 - 1800 pg/ml, further investigation warranted. > 1800 pg/ml, acute heart failure likely. B. Non-acute Setting < 75 yrs < 125 pg/ml, rules out heart failure. > or = 125 pg/ml, further investigation warranted. > or = 75 yrs < 450 pg/ml, rules out heart failure. > or = 450 pg/ml, further investigation warranted. - Knowledge of each individual patient's NT-proBNP range may be more useful than using similar cut-points for every patient. Please note that marked elevations in NT-proBNP levels may be observed in state other than Left Ventricular Congestive Failure, including: acute coronary syndromes, right heart strain/failure (including pulmonary embolism and cor pulmonale), critical illness, renal failure, as well as advanced age. - References: 1. Carolina FALL et.al. Eur Heart J. 2006:27:330-337. 2. Silvana RW, Al AM. J. AM Adrián Cardiol: Cardiovasc Imag. 2009;2: 216- 225. Interpretive Data Last Revised Date: 2018. Testing performed by: [address], [address] Blood 09/26/2025 10:4 7 AM CASTING SORTER 09/26/2025 6:24 PM CASTING SORTER us Jurgen Ware MD LAB BLOOD ORDERABLES Final Re sult [facility] ([place]) 1 [facility] Department [place] [address] * (ABNORMAL) CBC with auto differential (09/26/2025 10:47 AM CASTING SORTER) WBC 6.81 3.80 - 9.90 K/cumm Comment:Testing performed by : [address], [address] Hgb 13.1 11.9 - 15.5 g/dL [facility] ([place]) Comment:Testing performed by : [address], [address] Hct 42.1 35.6 - 45.5 % [facility] ([place]) Comment:Testing performed by : [address], [address] Plt 219 150 - 400 K/cumm [facility] ([place]) Comment:Testing performed by : [address], [address] MPV 9.5 9.1 - 12.3 fL [facility] ([place]) Comment:Testing performed by : [address], [address] RBC 4.22 3.90 - 5.20 M/cumm [facility] ([place]) Comment:Testing performed by : [address], [address] MCV 99.8(H) 81.3 - 96.4 fL [facility] ([place]) Comment:Testing performed by : [address], [address] MCH 31.0 27.1 - 33.3 pg [facility] ([place]) Comment:Testing performed by : [facility], [address] [place] [address], [address] MCHC 31.1(L) 32.3 - 35.7 g/dL [facility] ([place]) Comment:Testing performed by : [facility], [address] [place] [address], [address] RDW CV 13.2 11.1 - 14.9 % [facility] ([place]) Comment:Testing performed by : [facility], [address] [place] [address], [address] RDW SD 48.6(H) 35.7 - 48.1 fL [facility] ([place]) Comment:Testing performed by : [facility], [address] [place] [address], [address] NRBC abs 0.00 0.00 - 0.01 K/cumm [facility] ([place]) Comment:Testing performed by : [facility], [address] [place] [address], [address] Blood 09/26/2025 10:4 7 AM CASTING SORTER 09/26/2025 6:24 PM CASTING SORTER us Jurgen Ware MD LAB BLOOD ORDERABLES Final Re sult LALITO KNIGHT ([place]) 1 [facility] Department [place] [address] * Renal function panel (09/26/2025 10:47 AM CASTING SORTER) Sodium 143 135 - 145 mmol/L Comment:Testing performed by : [facility], [address] [place] [address], [address] Potassium, pl 4.6 3.3 - 4.9 mmol/L [facility] ([place]) Comment:Testing performed by : [address], [address] Chloride 106 97 - 110 mmol/L [facility] ([place]) Comment:Testing performed by : [address], [address] CO2 26 22 - 32 mmol/L [facility] ([place]) Comment:Testing performed by : [facility], [address], [place]., [address] Anion gap 11 2 - 15 mmol/L [facility] ([place]) Comment:Testing performed by : [address] [address] BUN 15 6 - 25 mg/dL [facility] ([place]) Comment:Testing performed by : [address], [address] Creatinine 1.06 0.60 - 1.10 mg/dL [facility] ([place]) Comment:Testing performed by : [facility], [address] [place] [address], [id number] Glucose 89 70 - 199 mg/dL [facility] ([place]) Comment: Interpretive Data Fasting glucose >/= 126 mg/dl is diagnostic for diabetes. Fasting is defined as no caloric intake for at least 8 hours. Fasting glucose between 100 mg/dl to 125 mg/dl is diagnostic of prediabetes. In a patient with classic symptoms of hyperglycemia or hyperglycemic crisis, a random glucose >/= 200 mg/dl is diagnostic for diabetes. In the absence of unequivocal hyperglycemia, results should be confirmed by repeat testing. The classification and Diagnosis of Diabetes Diabetes Care 2021; 46: S19-S40. Current interpretive data was last revised 2022. Testing performed by: [facility], [address] [place] [address]., [address] Calcium 8.8 8.5 - 10.3 mg/dL [facility] ([place]) Comment:Testing performed by : [address] [address] Phosphorus, pl 3.5 2.3 - 4.5 mg/dL [facility] ([place]) Comment:Testing performed by : [address], [address] Albumin 3.8 3.5 - 5.0 g/dL [facility] ([place]) Comment:Testing performed by : [address], [address] Blood 09/26/2025 10:4 7 AM CASTING SORTER 09/26/2025 6:24 PM CASTING SORTER Jurgen Ware MD LAB BLOOD ORDERABLES Final Re sult LALITO KNIGHT ([place]) 1 [facility] Department [place] [address] * (ABNORMAL) eGFR (09/26/2025 10:44 AM CASTING SORTER) eGFR 58(L) >=60 mL/min/1. 73 m2 Comment: Interpretive Data Reference Interval Normal >/= 90 mL/min/1.73m2 Mildly decreased* 60 - 89 mL/min/1.73m2 Mildly to moderately decreased 45 - 59 mL/min/1.73m2 Moderately to severely decreased 30 - 44 mL/min/1.73m2 Severely decreased 15 - 29 mL/min/1.73m2 Kidney Failure < 15 mL/min/1.73m2 *Relative to young adult level Estimated glomerular filtration rate is determined by the 2020 CKD-EPI equation recommended by the National Kidney Foundation (A Unifying Approach to GFR Estimation: Recommendations of the NKF-ASK Task Force on Reassessing the Inclusion of Race in Diagnosing Kidney Disease, JASN 2020). The CKD-EPI equation should not be used for patients with unstable renal function and has not been validated in children and those over 70. Current interpretive data was last reviewed 2021. Testing performed by: [facility], [address] [place] [address]., [address] Blood 09/26/2025 10:4 4 AM CASTING SORTER 09/26/2025 6:25 PM CASTING SORTER Ismael DEL CASTILLO LAB BLOOD ORDERABLES nal Result LALITO KNIGHT ([place]) 1 [facility] Department [place] [employer] [place] [address] * Vitamin D 25 hydroxy (09/26/2025 10:44 AM CASTING SORTER) Vitamin D 25-OH 71 30 - 80 ng/mL Comment:Testing performed by : [facility], [address] [place] [address], [place]., [address] Blood 09/26/2025 10:4 4 AM CASTING SORTER 09/26/2025 6:20 PM CASTING SORTER Ismael DEL CASTILLO LAB BLOOD ORDERABLES Fi nal Result Performing Organization Address City/[facility]/ZIP Co de Phone Number LALITO KNIGHT ([place]) 1 [facility] [place] [employer] [place] [address] * Hemoglobin A1c (09/26/2025 10:44 AM CASTING SORTER) Hgb A1C 5.5 4.0 - 5.6 % Comment:Testing performed by : [address] [address] Estimated Average Glucose 111 mg/dL LALITO KNIGHT ([place]) Comment: The ADA recommends reporting an estimated Average Glucose (eAG) with all Hemoglobin A1c results using the equation derived from a study of 507 normal and diabetic adults. Minority populations were underrepresented and children were not included. (Diabetes Care 31:3676-4192, 2008). The eAG is not equivalent to a fasting glucose. Testing performed by: [facility], [address] [place] [address], [id number] Blood 09/26/2025 10:4 4 AM CASTING SORTER 09/26/2025 6:20 PM CASTING SORTER Narrative LALITO KNIGHT ([place]) - 09/26/2025 6:46 PM CASTING SORTER fasting Ismael DEL CASTILLO LAB BLOOD ORDERABLES Fi nal Result Performing Organization Address [facility] Co de Phone Number LALITO KNIGHT ([place]) 1 [facility] [place] [address] * (ABNORMAL) Lipid panel (09/26/2025 10:44 AM CASTING SORTER) Cholesterol 133 30 - 199 mg/dL Comment: Interpretive Data Ages < or = 19 years Acceptable: <170 mg/dL Borderline high: 170-199 mg/dL High: >or= 200 mg/dL Ages > or = 20 years Desirable: <200 mg/dL Borderline high: 200-239 mg/dL High: >or= 240 mg/dL Literature References: 1. Expert Panel on Integrated Guidelines for Cardiovascular Health and Risk Reduction in Children and Adolescents. Pediatrics 2011;128:S213 2. NCEP Expert Panel. Circulation 2004;110:227 Current Interpretive Data was last revised on 2018. Testing performed by: [facility], [address] [place] [address]., [address] Triglycerides 213(H) <=149 mg/dL [facility] ([place]) Comment: Interpretive Data Ages < or = 9 years Acceptable: <75 mg/dL Borderline high: 75-99 mg/dL High: >or= 100 mg/dL Ages 10 to 20 years Acceptable: <90 mg/dL Borderline high: 90-129 mg/dL High: >or= 130 mg/dL Ages > or = 20 years Desirable: <150 mg/dL Borderline high: 150-199 mg/dL High: 200-499 mg/dL Very high: >or= 499 mg/dL Literature References: 1. Expert Panel on Integrated Guidelines for Cardiovascular Health and Risk Reduction in Children and Adolescents. Pediatrics 2011;128:S213 2. NCEP Expert Panel. Circulation 2004;110:227 Current Interpretive Data was last revised on 2018. Testing performed by: [facility], [address] [place] [address]., [address] HDL 46 >=40 mg/dL [facility] ([place]) Comment: Interpretive Data Ages < or = 19 years Acceptable: >45 mg/dL Borderline low: 40-45 mg/dL Low: <40 mg/dL Ages > or = 20 years Desirable: >or= 60 mg/dL Low: <40 mg/dL Literature References: 1. Expert Panel on Integrated Guidelines for Cardiovascular Health and Risk Reduction in Children and Adolescents. Pediatrics 2011;128:S213 2. NCEP Expert Panel. Circulation 2004;110:227 Current Interpretive Data was last revised on 2018. Testing performed by: [facility], [address] [place] [address]., [address] LDL, calculated 53 <=129 mg/dL [facility] ([place]) Comment: Interpretive Data Ages < or = 19 years Acceptable: <110 mg/dL Borderline high: 110-129 mg/dL High: >or= 130 mg/dL Ages > or = 20 years Optimal: <100 mg/dL Near optimal: 100-129 mg/dL Borderline high: 130-159 mg/dL High: >160 mg/dL Calculated using the Etienne LDL-C estimating equation. This equation was implemented on 2024. Prior to this date LDL-C was estimated using the Friedewald equation. Literature References: 1. Expert Panel on Integrated Guidelines for Cardiovascular Health and Risk Reduction in Children and Adolescents. Pediatrics 2011;128:S213 2. NCEP Expert Panel. Circulation 2004;110:227 3. Lowell Lerner et al. SERGEY Cardiol. 2020 March 08;5(5):540-548. doi: 10.1001/[email or web address].2020.0013 Current Interpretive Data was last revised on 2024. Testing performed by: [address] [address] Non-HDL Cholesterol 87 mg/dL LALITO KNIGHT ([place]) Comment: Interpretive Data Ages < or = 19 years Acceptable: <120 mg/dL Borderline high: 120-144 mg/dL High: >145 mg/dL Ages > or = 20 years When triglycerides are >200 mg/dL, Non-HDL cholesterol is a secondary target of therapy with treatment goals that are 30 mg/dL greater than the LDL cholesterol target. Literature References: 1. Expert Panel on Integrated Guidelines for Cardiovascular Health and Risk Reduction in Children and Adolescents. Pediatrics 2011;128:S213 2. NCEP Expert Panel. Circulation 2004;110:227 Current Interpretive Data was last revised on 2018. Testing performed by: [facility], [address] [place] [address]., [address] Chol/HDL ratio 3 HEAVEN KNIGHT ([place]) Comment:Testing performed by : [facility], [address] [place] [address]., [address] Blood 09/26/2025 10:4 4 AM CASTING SORTER 09/26/2025 6:20 PM CASTING SORTER Narrative LALITO KNIGHT ([place]) - 09/26/2025 6:55 PM CASTING SORTER fasting us Ismael DEL CASTILLO LAB BLOOD ORDERABLES Fi nal Result LALITO KNIGHT ([place]) 1 [facility] Department [place] [address] * (ABNORMAL) Comprehensive metabolic panel (09/26/2025 10:44 AM CASTING SORTER) Sodium 143 135 - 145 mmol/L Comment:Testing performed by : [facility], [address] [place] [address]., [address] Potassium, pl 4.6 3.3 - 4.9 mmol/L [facility] ([place]) Comment:Testing performed by : [facility], [address] [place] [address]., [address] Chloride 104 97 - 110 mmol/L [facility] ([place]) Comment:Testing performed by : [facility], [address] [place] [address]., [address] CO2 25 22 - 32 mmol/L [facility] ([place]) Comment:Testing performed by : [facility], [address] [place] [address]., [address] Anion gap 14 2 - 15 mmol/L [facility] ([place]) Comment:Testing performed by : [facility], [address] [place] [address]., [address] BUN 15 6 - 25 mg/dL [facility] ([place]) Comment:Testing performed by : [address] [address] Creatinine 0.99 0.60 - 1.10 mg/dL [facility] ([place]) Comment:Testing performed by : [address] [address] Glucose 87 70 - 199 mg/dL [facility] ([place]) Comment: Interpretive Data Fasting glucose >/= 126 mg/dl is diagnostic for diabetes. Fasting is defined as no caloric intake for at least 8 hours. Fasting glucose between 100 mg/dl to 125 mg/dl is diagnostic of prediabetes. In a patient with classic symptoms of hyperglycemia or hyperglycemic crisis, a random glucose >/= 200 mg/dl is diagnostic for diabetes. In the absence of unequivocal hyperglycemia, results should be confirmed by repeat testing. The classification and Diagnosis of Diabetes Diabetes Care 2021; 46: S19-S40. Current interpretive data was last revised 2022. Testing performed by: [address] [address] Calcium 9.1 8.5 - 10.3 mg/dL [facility] ([place]) Comment:Testing performed by : [address] [address] Bilirubin, total 0.3 0.1 - 1.2 mg/dL [facility] ([place]) Comment:Testing performed by : [facility], [address] [place] [address]., [address] Protein, pl 6.2(L) 6.5 - 8.5 g/dL [facility] ([place]) Comment:Testing performed by : [facility], [address] [place] [address], [address] Albumin 3.7 3.5 - 5.0 g/dL [facility] ([place]) Comment:Testing performed by : [facility], [address] [place] [address], [address] Alk phos 68 40 - 130 Units/L [facility] ([place]) Comment:Testing performed by : [address], [address] ALT 14 7 - 45 Units/L [facility] ([place]) Comment:Testing performed by : [address], [address] AST 24 10 - 45 Units/L [facility] ([place]) Comment:Testing performed by : [address], [address] Blood 09/26/2025 10:4 4 AM CASTING SORTER 09/26/2025 6:20 PM CASTING SORTER Ismael DEL CASTILLO LAB BLOOD ORDERABLES nal Result [facility] ([place]) 1 [facility] Department [place] [address] * Dexa Axial Skeleton Bone Density 1 or 2 Site (01/02/2025 1:50 PM CASTING SORTER) Anatomical Region Laterality Modality Body N/A Other 01/02/2025 11:1 8 PM CASTING SORTER Narrative 01/02/2025 11:24 PM CASTING SORTER EXAM DESCRIPTION: DEXA AXIAL SKELETON BONE DENSITY 1 OR MORE SITES REASON FOR STUDY: 79 y/o year old F with given history of: Osteoporosis screening Screening Double Backer/Model: Nevigo Discovery SL (S/N [id number]) Facility LSC value of 0.022 for the AP spine, 0.027 for the femur, and 0.023 for the forearm. CLINICAL INFORMATION: Current height: 64 inches Maximum height: 64 inches Weight: 215 pounds Risk factors: Postmenopausal, adult fracture, parental hip fracture COMPARISON: 10/19/2022 Dissimilar scan types or analysis methods precludes assessment for calculating a significant change. FINDINGS: AP LUMBAR SPINE L1-L4: Total BMD is 1.119 g/cm2 T-score is 0.7 LEFT HIP: Total BMD is 0.792 g/cm2 T-score is -1.2 Femoral neck BMD is 0.662 g/cm2 T-score is -1.7 FRAX: 10 year risk for a major osteoporotic fracture is 27 %, 10 year risk for a hip fracture is 14 % IMPRESSION: Low Bone Mass. REFERENCE: Bone mineral density: T-Score: Normal (T-score above or = -1.0) Low bone mass (T-score between -1.0 and -2.5) replaces the previously used term osteopenia Osteoporosis (T-score = or below -2.5) Z-Score: Within the expected range for age (Z-score above -2.0) Below the expected range for age (Z-score is -2.0 or below) Please see below follow up recommendations. Medical evaluation for secondary causes of low bone mineral density may be appropriate. FRAX is a World Health Organization validated fracture risk assessment tool that calculates a person's 10 year probability of a major osteoporosis related fracture and hip fracture. According to the National Osteoporosis Foundation guidelines, postmenopausal women and men age 50 or older with low bone mass and a 10 year probability of a major osteoporosis related fracture = or greater than 20% or a 10 year probability of a hip fracture = or greater than 3% should be considered for pharmacological treatment for the prevention of osteoporosis. For further information, including treatment recommendations, please refer to the 2019 ISCD Official Positions (http://www.iscd.org) and the NOF's Clinician's Guide to Prevention and Treatment of Osteoporosis (http://www.nof.org/professionals/clinical-guidelines) THIS IS AN ELECTRONICALLY VERIFIED FINAL REPORT 01/02/2025 11:24 PM - Electronically signed by Severiano Jalloh M.D. MF: CHRISTOPHER Report ID: [id number] Reading Location: [id number] Procedure Note Severiano Jalloh MD - 01/02/2025 EXAM DESCRIPTION: DEXA AXIAL SKELETON BONE DENSITY 1 OR MORE SITES REASON FOR STUDY: 79 y/o year old F with given history of:Osteoporosis screening Screening Double Backer/Model: Nevigo Discovery SL (S/N [id number]) Facility LSC value of 0.022 for the AP spine, 0.027 for the femur, and0.023 for the forearm. CLINICAL INFORMATION: Current height: 64 inches Maximum height: 64 inches Weight: 215 pounds Risk factors: Postmenopausal, adult fracture, parental hip fracture COMPARISON: 10/19/2022 Dissimilar scan types or analysis methods precludes assessment for calculating a significant change. FINDINGS: AP LUMBAR SPINE L1-L4: Total BMD is 1.119 g/cm2 T-score is 0.7 LEFT HIP: Total BMD is 0.792 g/cm2 T-score is -1.2 Femoral neck BMD is 0.662 g/cm2 T-score is -1.7 FRAX: 10 year risk for a major osteoporotic fracture is 27 %, 10 year risk for ahip fracture is 14 % IMPRESSION: Low Bone Mass. REFERENCE: Bone mineral density: T-Score: Normal (T-score above or = -1.0) Low bone mass (T-score between -1.0 and -2.5) replaces thepreviously used term osteopenia Osteoporosis (T-score = or below -2.5) Z-Score: Within the expected range for age (Z-score above -2.0) Below the expected range for age (Z-score is -2.0 or below) Please see below follow up recommendations. Medical evaluation forsecondary causes of low bone mineral density may be appropriate. FRAX is a World Health Organization validated fracture risk assessmenttool that calculates a person's 10 year probability of a major osteoporosisrelated fracture and hip fracture. According to the National OsteoporosisFoundation guidelines, postmenopausal women and men age 50 or older with low bonemass and a 10 year probability of a major osteoporosis related fracture = or greater than 20% or a 10 year probability of a hip fracture = or greaterthan 3% should be considered for pharmacological treatment for the preventionof osteoporosis. For further information, including treatment recommendations, please referto the 2019 ISCD Official Positions (http://www.iscd.org) and the NOF's Clinician's Guide to Prevention and Treatment of Osteoporosis (http://www.nof.org/professionals/clinical-guidelines) THIS IS AN ELECTRONICALLY VERIFIED FINAL REPORT 01/02/2025 11:24 PM - Electronically signed by Severiano Jalloh M.D. MF: CHRISTOPHER Report ID: [id number] Reading Location: [id number] us Ismael DEL CASTILLO IMG DXA PROCEDURES Jeanne l Result * COLONOSCOPY (01/29/2023 7:15 AM CDT) Anatomical Region Laterality Modality Other Narrative Procedure Note Jas Tsang MD - 01/29/2023 7:15 AM CDT [facility] Patient Name: Lorna Jack Procedure Date: 01/29/2023 7:15 AM Date of : 1945 Admit Type: Outpatient Age: 78 Gender: Female Attending MD: Jas Tsang M.D. Room: [facility] ENDOSCOPY ROOM 2 Note Status: Finalized Patient Profile: Refer to note in patient chart for documentation of history and physical. Procedure: Colonoscopy Indications: High risk colon cancer surveillance: Personalhistory of colonic polyps, Last colonoscopy: December2017 Referring MD: Ismael De La Cruz PA-C Providers: Jas Tsang M.D. Impression: - Hemorrhoids found on perianal exam. - Diverticulosis in the sigmoid colon, in the descending colon, at the splenic flexure, in the transverse colon, at the hepatic flexure and in the ascending colon. - The examination was otherwise normal. - No specimens collected. Recommendation: - Discharge patient to home. - Resume previous diet. - Continue present medications. - Repeat colonoscopy in 5 years for surveillance. - Return to primary care physician as previously scheduled. Medicines: Propofol per Anesthesia Complications: No immediate complications. Estimated Blood Loss: Estimated blood loss: none. Procedure: Pre-Anesthesia Assessment: - This assessment was completed [Time ofAssessment] prior to the administration of sedation. The benefits, risks and alternatives of theprocedure and sedation were discussed and informed consentwas obtained. All questions were answered. Please referto the signed informed consent document in the medical record. The scope was passed under direct vision.The Colonoscope [id number] was introducedthrough the anus and advanced to the the cecum, identifiedby appendiceal orifice and ileocecal valve. The bowel preparation used was Miralax via single dose instruction. The bowel preparation used wasbisacodyl tablets via single dose instruction. Thecolonoscopy was performed without difficulty. The patient tolerated the procedure well. The quality of thebowel preparation was good. The ileocecal valve,appendiceal orifice, and rectum were photographed. Findings: Hemorrhoids were found on perianal exam. Multiple small and large-mouthed diverticula were found in thesigmoid colon, descending colon, splenic flexure, transverse colon, hepatic flexure and ascending colon. The exam was otherwise without abnormality. Electronically signed by Jas Tsang M.D. Jas Tsang M.D. 01/29/2023 8:15:17 AM Number of Addenda: 0 Note Initiated On: 01/29/2023 7:15 AM Procedure Code(s): --- Professional --- G0105, Colorectal cancer screening; colonoscopy on individual at high risk --- Technical --- G0105, Colorectal cancer screening; colonoscopy on individual at high risk Diagnosis Code(s): --- Professional --- K57.30, Diverticulosis of large intestine without perforation orabscess without bleeding K64.9, Unspecified hemorrhoids Z86.010, Personal history of colonic polyps --- Technical --- K57.30, Diverticulosis of large intestine without perforation orabscess without bleeding K64.9, Unspecified hemorrhoids Z86.010, Personal history of colonic polyps CPT copyright 2020 [employer] [place] [employer]. All rights reserved. The codes documented in this report are preliminary and upon braille coder reviewmay be revised to meet current compliance requirements. Recognized by the [place] [employer]intestinal [employer] for promoting quality in endoscopy Jas Tsang MD ENDOSCOPY PROCEDURES Final Re sult * Screening Mammogram 2D Bilateral (01/26/2020) Anatomical Region Laterality Modality Breast Bilateral Mammography Narrative 01/26/2020 Results in Care Everywhere Historical Provider IMG MAMMO PROCEDURES Jeanne l Result * HEPATITIS C SCREENING (01/06/2017) HEP C Normal Comment:Negative Historical Provider HEALTH MAINTENANCE Final Result from Last 3 Months or Most Recently Relevant to Health Maintenance Insurance [facility] MEDICARE ADVANTAGE [facility] Address: [address] [address] [place] [address] UHC MEDICARE ADVANTAGE [facility] MEDICARE [facility] MEDICARE Advance Directives For more information, please contact: [phone] * Full Code (Latest Code Status on File) Date Activated Date Inactivated Comments 11/06/2024 11:31 AM 11/06/2024 5:52 PM * Full Code Date Activated Date Inactivated Comments 11/06/2024 11:31 AM 11/06/2024 11:31 AM * Full Code Date Activated Date Inactivated Comments 01/29/2023 7:06 AM 01/29/2023 1:13 PM * Full Code Date Activated Date Inactivated Comments 01/29/2023 7:06 AM 01/29/2023 7:06 AM * Full Code Date Activated Date Inactivated Comments 08/29/2018 10:42 AM 08/29/2018 2:40 PM Care Teams Yard Brakeman Relationship Specialty Start Date End Date Ismael De La Cruz PA [address] [place] [address] [address] [place] [address] PCP - General Internal Medicine 07/19/22 [place] [address] [facility] [address] [place] [address] Consulting Physician Pain Management 12/17/23 Jurgen Ware MD [address] [place] [address] [address] [place] [address] Consulting Physician Nephrology 04/18/24 [place] [address] [place] [address] Consulting Physician Urology 04/18/24 [place] [address] [place] [address] Consulting Physician Neurology 04/18/24 Dejan Wood DPM [address] [place] [address] Consulting Physician Orthotics 04/18/24 Randal Hurst MD [address] [place] [address] Referring Physician Hematology and Oncology 04/18/24 Lauren Warren MD [address] [address] Consulting Physician General Surgery 04/18/24 Kalpana Sepulveda MD [address] [place] [place] [address] Regional Driver Obstetrics and Gynecology 04/18/24
--- OUTSIDE RECORDS SUMMARY | 2025-10-26 12:53 | XMS_ITS | Clinical Summary ---
Author Organization [facility] Address [address] [place] [address] Phone Care Team Providers Care Business Practices Officer Name Role Phone Hung Bay MD Primary Care Provider Unavaila ble Allergies Active Allergy Reactions Criticality Noted Date Comments Iodinated Contrast Media Unknown 01/03/2016 Pt only has one kidney Morphine Other (see Comments) 09/15/2019 Pt will not take because she is taking Verapamil and heard that they shouldn't be taken together Nsaids Other (see Comments) 09/15/2019 Can not take as she only has 1 kidney Medications escitalopram (LEXAPRO) 10 MG Tablet Take 20 mg by mouth daily. Active verapamil (CALAN,ISOPTIN) 80 MG TabletIndications :1 1/2 tabs in the am 1 in pm Take 80 mg by mouth 3 times daily. Indications: 1 1/2 tabs in the am 1 in pm Active rosuvastatin (CRESTOR) 10 MG Tablet Take 10 mg by mouth daily. Active Aspirin 81 MG Tablet Take 81 mg by mouth daily. Active Omeprazole (PRILOSEC PO) Take by mouth. Active Ascorbic Acid (VITAMIN C PO) Take 500 mg by mouth 2 times daily. Active vitamin D (CHOLECALCIFEROL) 1000 UNIT Tablet Take 1,000 Units by mouth daily. Active Multiple Vitamins-Minerals (ONE DAILY MULTIVITAMIN ADULT) Tablet Take by mouth. Active cloNIDine (CATAPRES) 0.1 MG TabletIndications :1 in morning and 1 in evening Take 0.2 mg by mouth 2 times daily. Indications: 1 in morning and 1 in evening Active metoprolol Succinate (TOPROL-XL) 100 MG TABLET SR 24 HR Take 100 mg by mouth nightly. Active KRILL OIL PO Take by mouth. Active calcium acetate (PHOSLO) 667 MG Capsule Take 1 Cap by mouth 3 times daily. Active solifenacin (VESICARE) 10 MG Tablet Take 10 mg by mouth daily. 1 Active Mirabegron ER (Myrbetriq) 50 MG TABLET SR 24 HR Take 50 mg by mouth daily. 1 Active Multiple Vitamins-Minerals (ZINC PO) Take by mouth daily. Active TURMERIC PO Take by mouth daily. 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, diagnosed in February 2015 --s/p excision in March 2015 -- On tamoxifen since 03/08/15 Left leg pain Family History Medical History Relation Name Comments Cancer Brother Multiple Sclerosis Brother Heart Disease Father Hypertension Mother Relation Name Status Comments Brother Father Mother Social History Tobacco Use Types Packs/Day Years Used Date Smoking Tobacco: Former Cigarettes 3 55 Smokeless Tobacco: Never Tobacco Cessation:Counseling Given: Not Answered Alcohol Use Standard Drinks/Week Comments Yes 0 (1 standard drink = 0.6 oz pur e alcohol) Comments No Sex and Gender Information Value Date Recorded Sex Assigned at Not on file Legal Sex Female 11:57 PM CDT Gender Identity Not on file Sexual Orientation Not on file Last Filed Vital Signs Vital Sign Reading Time Taken Comments Blood Pressure 148/65 07/26/2025 1:13 PM CDT Pulse 60 07/26/2025 1:13 PM CDT Temperature 36.2 C (97.2 F) 07/26/2025 1:13 PM CDT Respiratory Rate 18 07/26/2025 1:13 PM CDT Oxygen Saturation 97% 07/26/2025 1:13 PM CDT Inhaled Oxygen Concentration - - Weight 118.4 kg (261 lb) 07/26/2025 1:13 PM CDT Height 162.6 cm (5' 4) 07/26/2025 1:13 PM CDT Body Mass Index 44.8 07/26/2025 1:13 PM CDT Plan of Treatment Upcoming Encounters Date Type Department Care Team (Late st Contact Info) Description 07/31/2026 1:00 PM CDT [facility] [address] [place] [address] Randal Hurst MD [address] [place] [address] Health Maintenance Due Date Last Done Comments Hepatitis C Virus (HCV) Screening 1945 Medicare Initial AWV [id number] 11/08/2016 Discussion re Stopping Mammograms 2021 Respiratory Syncytial Virus (RSV) Immunization (Adult) (1 - 1-dose 75+ series) 2021 Influenza Immunization (#1) 07/09/202508/08, 09/11/2023, 10/07/2022, Additional history exists SARS-COV-2 Immunization ( season) 2025 10/13/2021, 01/23/2021, 01/02/2021 Mammogram 01/18/2026 01/18/2025, 01/06, 11/16/2023, Additional history exists DEXA Bone Density 01/02/2027 01/02/2025, , 01/03/2021, Additional history exists DTaP/Tdap/Td Immunization Discontinued 07/17/2014, 09/2003 TdaP Immunization Completed 07/17/2014 Pneumococcal Immunization (50+ years) Completed 10/07/2016, 09/25/2015, 08/27/2014, Additional history exists Pneumococcal Immunization Combined Discontinued 10/07/2016, 09/25/2015, 08/27/2014, Additional history exists Zoster Immunization Completed 12/14/2018, 09/05/2018, 04/04/2009 Colonoscopy Discontinued 01/29/2023 Colorectal Cancer Screening Discontinued Cologuard Discontinued Hepatitis B Immunization Aged Out No longer eligible based on patient's age to complete this topic Human Papillomavirus (HPV) Immunization (No Doses Required) Completed Immunochemical Fecal Occult Blood Discontinued Meningococcal Immunization (ACWY) Aged Out No longer eligible based on patient's age to complete this topic Rotavirus Immunization Aged Out No lo nger eligible based on patient's age to complete this topic Procedures Procedure Name Priority Date/Time Associated Diagnosis Comments MAMMOGRAM BILATERAL GENERIC 11/11/2021 12:00 AM HAND KISS SETTER from Last 3 Months or Most Recently Relevant to Health Maintenance Results * MAMMOGRAM BILATERAL MISCELLANEOUS (11/11/2021 12:00 AM HAND KISS SETTER) 11/11/2021 us Not On File Provider IMG MAMMO ORDERABLES Final Result SCAN from Last 3 Months or Most Recently Relevant to Health Maintenance Insurance MEDICARE C [employer]ET[employer] Care Teams Business Practices Officer Relationship Specialty Start Date End Date Hung Bay MD [address] [place] [address] [place] [id number] PCP - General Internal Medicine 12/31/15
--- OUTSIDE RECORDS SUMMARY | 2025-10-26 12:53 | XMS_ITS | Encounter Summary ---
Author Organization [facility] Address [address] [place] [address] Phone Care Team Providers Care Microfilm Operator Name Role Phone Hung Bay MD Primary Care Provider Unavaila ble Reason for Visit * Reason Comments Medication Refill Encounter Details Date Type Department Care Team (Late st Contact Info) Description 04/09/2022 Refill [facility] On[facility] [address] [place] [phone] Randal Hurst MD [address] [place], [place] [id number] Medication Refill Social History Tobacco Use Types [...] Telephone Encounter - Maris Rios RN - 04/09/2022 8:41 AM CDT Refilled Tamoxifen per last OV note. documented in this encounter Plan of Treatment Upcoming Encounters Date Type Department Care Team (Late st Contact Info) Description 07/31/2026 1:00 PM CDT Office Visit [facility] On[facility] Services [address] [place] [address] [place] [address] [place] [address] documented as of this encounter Visit Diagnoses Diagnosis Breast neoplasm, Tis (LCIS), unspecified laterality documented in this encounter Care Teams Microfilm Operator Relationship Specialty Start Date End Date Hung Bay MD [address] [place] [address] [address] PCP - General Internal Medicine 12/31/15 documented as of this encounter
--- OUTSIDE RECORDS SUMMARY | 2025-10-26 12:53 | XMS_ITS | Clinical Summary ---
Author Organization [facility] [employer] Address [address] [facility] [place] [address] Care Team Providers Care Accounts Payables Clerk Name Role Phone Ismael De La Cruz PA-C Primary Care Provider [phone] Source Comments [facility] [employer],non-owned Affiliates and Associated Physician Practices is amultiple site organization consisting of ambulatory clinics and hospital sitesin [place], [place], [place] and [place]. This disclosure is being madepursuant to the Care Everywhere program and may not contain all information available regarding this patient. Last updated 18.[facility] [employer] Allergies Active Allergy Reactions Criticality Noted Date Comments Adhesive Sensitivity Other Low 11/11/2021 Contraindicated because of history or renal disease Contrast-Iodinated Agents For Ct/Other Other,Unknown High 02/25/2015 Pt only has one kidney Potential of causing the functioning kidney(left) to fail Potential of causing the functioning kidney(left) to fail Other reaction(s): Other (See comments) Pt only has one kidney Potential of causing the functioning kidney(left) to fail Other reaction(s): Other (see comments) Pt only has one kidney Morphine Other Medium 02/25/2015 Pt will not take because she is taking Verapamil and heard that they shouldn't be taken together Declines because she only has one functioning kidney Declines because she only has one functioning kidney Respiratory depression, pt states due to use of verapamil Respiratory depression, pt states due to use of verapamil Other reaction(s): Other (See comments), Other (see comments) Declines because she only has one functioning kidney Declines because she only has one functioning kidney Respiratory depression, pt states due to use of verapamil Nitrofurantoin Nausea and/or Vomiting Low 01/10/2019 Sulfacetamide Nausea and/or Vomiting Low 04/18/2024 Medications * Be aware that medications may not be up to date on this document. Alwaysverify current medications with the patient. ascorbic acid (VITAMIN C) 500 MG tablet Take 1 (one) tablet by mouth 2 times daily Active KRILL OIL PO Active Multiple Vitamin (M.V.I. ADULT IV) Take 1 tablet by mouth Active ALPRAZolam (XANAX) 0.5 MG tablet Take one before leaving the house to get on a plane and can repeat once there and once on the plane if needed. 1 Active aspirin buffered (BUFFERIN LOW DOSE) 81 MG tablet Take 1 (one) tablet by mouth once daily Active Cholecalciferol 50 MCG (2000 UT) Take 2,000 Units by mouth once daily Active cloNIDine (CATAPRES) 0.1 MG tablet Take 2 (two) tablets by mouth 2 times daily Active erythromycin (ROMYCIN) 5 MG/GM ophthalmic ointment APPLY SMALL AMOUNT TO EYE LID THREE TIMES DAILY FOR 10 DAYS STARTING AFTER SURGERY. 1 Active escitalopram (LEXAPRO) 10 MG tablet Take 2 (two) tablets by mouth once daily Active B-D UF III MINI PEN NEEDLES 31G X 5 MM needle 1 Active VICTOZA 18 MG/3ML pen 1 Active metFORMIN ER 24hr (GLUCOPHAGE XR) 500 MG tablet TAKE 1 TABLET BY MOUTH EVERY DAY WITH BREAKFAST FOR 2 WEEKS, THEN TWICE DAILY WITH FOOD 1 Active metoprolol succinate XL 24hr (TOPROL XL) 100 MG tablet Take 1 (one) tablet by mouth at bedtime 1 Active mirabegron ER 24hr (MYRBETRIQ) 50 MG tablet 1 Active neomycin-polymy ray-dexameth (MAXITROL) ophthalmic ointment APPLY A SMALL AMOUNT ON LEFT EYELID AT BEDTIME 1 Active omeprazole (PRILOSEC) 20 MG capsule Take 1 (one) capsule by mouth Active QUEtiapine (SEROQUEL) 25 MG tablet 1 Active rosuvastatin (CRESTOR) 10 MG tablet Take 1 (one) tablet by mouth once daily Active tamoxifen (NOLVADEX) 20 MG tablet Take 1 (one) tablet by mouth once daily 1 Active verapamil (ISOPTIN) 80 MG tablet Take 1 (one) tablet by mouth 0 Active clobetasol propionate (Clobex) 0.05 % shampoo PLEASE SEE ATTACHED FOR DETAILED DIRECTIONS 4 Active alendronate (Fosamax) 70 MG tablet Take 1 (one) tablet by mouth every 7 days 5 01/03/20 Active Active Problems Problem Noted Date Diagnosed Date Left leg pain 01/18/2025 Genetic testing 01/18/2025 Overview (01/18/2025): Neg BRCA Hyperlipidemia 01/18/2025 Nausea and vomiting 09/19/2024 Lumbar radiculopathy 06/08/2024 Arthritis of left hip 02/01/2024 Radiculitis, lumbosacral 11/30/2023 Bilateral hip pain 01/12/2023 Hepatic steatosis 10/07/2022 DDD (degenerative disc disease), lumbar 07/15/20 Lumbar facet arthropathy 07/15/2022 Primary osteoarthritis of both hips 03/18/2022 Spinal stenosis of lumbar re gion with neurogenic claudication 03/18/2022 Fibrocystic breast changes of both breasts 06/27 Chronic bilateral low back pain without sciatica 2020 Proteinuria 12/06/2019 Renal artery stenosis 12/06/2019 Numbness and tingling of upp er and lower extremities of both sides 11/30/2019 Impaired functional mobility, balance, gait, and endurance 11/22/2019 Chronic right shoulder pain 07/03/2019 Atherosclerosis of aorta 03/13/2019 Recurrent UTI 03/09/2019 Hypersomnia with sleep apnea 01/09/2019 Venous insufficiency (chronic) (peripheral) 01/2019 Prophylactic use of tamoxifen 10/01/2018 Primary hypertension 09/02/2018 Gait disturbance 08/23/2018 Gastroesophageal reflux disease with esophagitis 07/13/2018 Recurrent falls 07/13/2018 Impaired joint position sense 04/21/2018 Hx of colonic polyps 09/25/2017 Overview (01/18/2025): Added automatically from request for surgery [id number] Coronary artery disease of n ative artery of [place] heart with stable angina pectoris 09/14/2017 Airplane sickness 09/14/2017 At high risk for falls per S chmid fall risk assessment scale 09/14/2017 Mild intermittent asthma without complication Recurrent major depressive disorder, in full rem ission 09/14/2017 Morbid (severe) obesity due to excess calories 1 11/14/2015 Atypical hyperplasia of breast 01/03/2016 Chronic kidney disease, stage I 03/07/2015 Overview (01/18/2025): 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 03/24/2014 Overview (01/18/2025): MIXED HYPERLIPIDEMIA FRANCISCO (obstructive sleep apnea) 03/24/2014 Overview (01/18/2025): Sleep apnea Rosacea 01/23/2014 Overview (01/18/2025): Acne rosacea Mitral valve prolapse 01/29/2012 Overview (01/18/2025): MVP (mitral valve prolapse) Osteoarthrosis 01/29/2012 Overview (01/18/2025): Osteoarthritis Diffuse cystic mastopathy 08/04/2010 Overview (01/18/2025): ADH Bee 4.2 % for 5 yrs and16 % for lifetime Last Assessment & Plan: On Evista ROV 1 year Mammo May Family history of malignant neoplasm of breast 0 08/04/2010 Family History Medical History Relation Name Comments Cancer - Breast Maternal Aunt Cancer - Breast Paternal Aunt 1 hx of mul tipl pat aunts w/ breast CA Cancer - Breast Paternal Aunt 2 Cancer - Breast Paternal Aunt 3 Relation Name Status Comments Maternal Aunt Paternal Aunt 1 Paternal Aunt 2 Alive Paternal Aunt 3 Alive Social History Tobacco Use Types Packs/Day Years Used Date Smoking Tobacco: Never Smokeless Tobacco: Never Alcohol Use Standard Drinks/Week Comments Not Currently 0 (1 standard drink = 0.6 oz pur e alcohol) Comments No Sex and Gender Information Value Date Recorded Sex Assigned at Not on file Legal 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 Gender Identity Not on file Sexual Orientation Not on file Last Filed Vital Signs Vital Sign Reading Time Taken Comments Blood Pressure 102/68 01/18/2025 1:27 PM CDT Pulse 72 01/18/2025 1:27 PM CDT Temperature 36.2 C (97.1 F) 01/18/2025 1:20 PM CDT Respiratory Rate - - Oxygen Saturation - - Inhaled Oxygen Concentration - - Weight 115.2 kg (254 lb) 01/18/2025 1:20 PM CDT Height 162.6 cm (5' 4) 01/18/2025 1:20 PM CDT Body Mass Index 43.6 01/18/2025 1:20 PM CDT Plan of Treatment Upcoming Encounters Date Type Department Care Team (Late st Contact Info) Description 01/22/2026 11:00 AM CDT Appointment [facility] [address] [place] [address] [address] [place] [address] 01/22/2026 11:30 AM CDT Office Visit [facility] - Surgery [address] [place] [address], [address] [place] [phone] Lauren Warren MD [address] [place] [address] [address] [place] [address] Health Maintenance Due Date Last Done Comments DTAP/TDAP/TD VACCINES (1 - Tdap) 1964 PNEUMOCOCCAL VACCINE 50+ (1 of 2 - PCV) 1965 ZOSTER VACCINE (1 of 2) 01/18/1996 Respiratory Syncytial Virus (RSV) Vaccine Pt: or over 60 yrs (1 - 1-dose 75+ series) 2021 DEPRESSION SCREENING 11/08/2024 MEDICARE AWV CALENDAR YEAR 2024 COVID-19 VACCINE ( season) 2025 10/13/2021, 01/23/2021, 01/02/2021 INFLUENZA VACCINE (#1) 2025 , 08/31/2019, 09/02/2018, Additional history exists BONE DENSITY TESTING Completed 01/02/2025, 10/19/2022, 01/03/2021, Additional history exists HEPATITIS B VACCINE Aged Out No longe r eligible based on patient's age to complete this topic HIB VACCINE Aged Out No longer eligi ble based on patient's age to complete this topic HPV VACCINE Aged Out No longer eligi ble based on patient's age to complete this topic MENINGOCOCCAL (Group B) VACCINE SHARED DECISION-MAKING Aged Out No longer eligible based on patient's age to complete this topic MENINGOCOCCAL GROUPS A/C/Y/W VACCINE Aged Out No longer eligible based on patient's age to complete this topic Insurance [facility] * Guarantor: BLANCA GILBERT Account Type Relation to Patient Date of Phone Billing Address Personal/Family [address] MEDICARE ADV Care Teams Accounts Payables Clerk Relationship Specialty Start Date End Date Ismael De La Cruz, NORMAC PCP - General 09/12/24
--- OUTSIDE RECORDS SUMMARY | 2025-10-26 12:53 | XMS_ITS | Clinical Summary ---
Author Organization [facility] Carlos Dicknison [facility] Address [address] [place] [address] Phone Care Team Providers Care Crusher Setter Name Role Phone Hung Bay MD Primary Care Provider Taylor bernstein Allergies Active Allergy Reactions Criticality Noted Date Comments Iodinated Contrast Media Other (See Comments),Renal Dysfunctions High 02/25/2015 Potential of causing the functioning kidney(left) to fail Other reaction(s): Other (See comments) Pt only has one kidney Potential of causing the functioning kidney(left) to fail Other reaction(s): Other (see comments) Pt only has one kidney Morphine Other (See Comments) Medium 02/25/2015 Respiratory depression, pt states due to use of verapamil Other reaction(s): Other (See comments), Other (see comments) Declines because she only has one functioning kidney Declines because she only has one functioning kidney Respiratory depression, pt states due to use of verapamil Nitrofurantoin Nausea and Vomiting Low 01/10/2019 Medications escitalopram (LEXAPRO) 10 mg Oral tablet Take 10 mg by mouth daily. Active aspirin (ERIBERTO) 81 mg Oral Tab Take 81 mg by mouth daily. Active MULTIVITAMIN ORAL Take by mouth. Active ascorbic acid (VITAMIN C) 500 mg Oral tablet Take 500 mg by mouth daily. Active tamoxifen (NOLVADEX) 20 mg tablet 07/29/2015 Active [id number] (KRILL OIL) 1,316-460-49-50 mg Capsule Take by mouth. Active CRESTOR 10 mg tabletIndication s:Lobular carcinoma in situ, right,Family history of malignant neoplasm of breast 12/17/2015 Active OMEPRAZOLE ORALIndications: Lobular carcinoma in situ (LCIS) of right breast,Fibrocyst ic breast disease (FCBD), unspecified laterality,Morbi d obesity with BMI of 40.0-44.9, adult (CMS/HCC) Take by mouth. Active metoprolol succinate (TOPROL XL) 100 mg Extended Release 24 hour tablet Take 100 mg by mouth daily at bedtime. 06/17/2018 Active Cholecalciferol, Vitamin D3, 50 mcg (2,000 unit) Capsule Take 1 Tablet by mouth. 01/29/2012 Active verapamiL (CALAN) 80 mg tablet Take 1 Tablet by mouth daily at bedtime. 11/10/2018 Active Active Problems Patient Care Coordination No te Formatting of this note migh t be different from the original. Primary Care: Hung Bay [place]: [place] [address] [facility] [address] [place] [id number] Other: Dr. Tamie Hurst- medical oncologist Fx# [phone] Dr. Sheri Lorenzo Fx# [phone] Problem Noted Date Diagnosed Date Fibrocystic breast changes of both breasts 06/27 Morbid obesity with BMI of 40.0-44.9, adult 11/0 05/2016 Lobular carcinoma in situ 02/26/2015 Overview (03/06/2015): right ADH 08/04/2010 Overview (08/28/2010): ADH Bee 4.2 % for 5 yrs and16 % for lifetime Assessment & Plan (03/16/2012 2:14 PM CDT): On Evista ROV 1 year Mammo May Assessment & Plan (03/04/2011 2:51 PM CDT): On Evista for 6 months Mammogram today ROV 1 year Assessment & Plan (08/28/2010 1:23 PM CDT): IOV with Bronson silverio d/c from nipple this summer (May) 600mg bid calcium Obesity class 2 Vit C 500bid , b6 100 bid, soy isoflavones 40g ADH on biopsy EVISTA BRCA 1/2 pending ROV 6 months with [facility] Family history of malignant neoplasm of breast 0 08/04/2010 MVP (mitral valve prolapse) HTN (hypertension) Hyperlipidemia Genetic testing Overview (04/30/2011): Neg BRCA Resolved Problems Problem Noted Date Diagnosed Date Resolved Date Abnormal finding on breast imaging 09/16/2016 10/18/2017 Lump of breast, right 01/15/20152014 Immunizations Immunization Administration Dates Next Due (PREVNAR 13)(6 WKS UP) PNEUM OCOCCAL CONJUGATE (PCV13) 0.5 ML, IM 08/27/2014 Adacel Vaccine > 7 Yo IM 07/17/2014 Varicella Zoster Immune Globulin IM Patient Supp lied 04/04/2009 Family History Medical History Relation Name Comments Multiple Sclerosis Brother 1 x1 Prostate Cancer Brother 2 Healthy Daughter 1 Healthy Daughter 2 Healthy Daughter 3 Cancer Father bladder, 1 [id number] age 90y COPD; superficial bladder CA Other Mother diabetes; alive age 88yr Breast Cancer Paternal Aunt 2 x 3 46 and 60's several aunts / ages range from 50-60's Cancer Paternal Cousin 1 throat Lung Cancer Paternal Cousin 2 Prostate Cancer Paternal Grandfather Healthy Son Relation Name Status Comments Brother 1 x1 Brother 2 Daughter 1 Alive Daughter 2 Alive Daughter 3 Alive Father bladder, 1 [id number] Mother Paternal Aunt 1 x 3 Alive Paternal Aunt 2 x 3 46 and 60's Paternal Cousin 1 throat Paternal Cousin 2 Paternal Grandfather Son Alive Social History Tobacco Use Types Packs/Day Years Used Date Smoking Tobacco: Former Cigarettes 3 20 1 11/28/1987 - 09/28/2008 Smokeless Tobacco: Former Tobacco Cessation:Counseling Given: No Comments:used Chantix Alcohol Use Standard Drinks/Week Comments Yes 0 (1 standard drink = 0.6 oz pur e alcohol) 2 mixed drinks per month Comments No Sex and Gender Information Value Date Recorded Sex Assigned at Not on file 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 Gender Identity Not on file Sexual Orientation Not on file Occupation Industry Job Start Date Job End Date Raised 6 kids Not on file Not on file Not on file Last Filed Vital Signs Vital Sign Reading Time Taken Comments Blood Pressure 122/70 06/27/2020 12:50 PM CDT Pulse 63 06/05/2019 1:00 PM CDT Temperature 36.6 C (97.9 F) 09/16/2015 12:09 PM CHEMIST PHYSICAL Respiratory Rate 18 02/26/2015 8:22 AM CDT Oxygen Saturation 99% 02/26/2015 8:22 AM CDT Inhaled Oxygen Concentration - - Weight 117.9 kg (260 lb) 06/27/2020 12:50 PM CDT Height 162.6 cm (5' 4) 06/27/2020 12:50 PM CDT Body Mass Index 44.63 06/27/2020 12:50 PM CDT Plan of Treatment Health Maintenance Due Date Last Done Comments OSTEOPOROSIS SCREENING 2011 RSV VACCINE (60+ or ) (1 - 1-dose 75+ series) 2021 DTAP/TDAP/TD VACCINES (2 - T d or Tdap) 07/17/2024 07/17/2014 INFLUENZA VACCINE (#1) 2025 9, 09/02/2018, 09/14/2017, Additional history exists PNEUMOCOCCAL VACCINE 50+ YEARS Completed 1 12/07/2015, 09/25/2015, 09/16/2015, Additional history exists ZOSTER VACCINE Completed 12/14/2018, 09/05/2018 Insurance [facility] [id number] Advance Directives For more information, please contact: [phone] * Full Code (Latest Code Status on File) Date Activated Date Inactivated Comments 02/26/2015 7:13 AM 02/26/2015 10:38 AM * Full Code Date Activated Date Inactivated Comments 02/26/2015 6:46 AM 02/26/2015 7:13 AM * Full Code Date Activated Date Inactivated Comments 08/19/2010 6:58 AM 08/19/2010 12:58 PM Care Teams Crusher Setter Relationship Specialty Start Date End Date Hung Bay MD PCP - General 10/25/15
--- OUTSIDE RECORDS SUMMARY | 2025-10-26 12:53 | XMS_ITS | Clinical Summary ---
Author Organization [facility] Address [address] [address] Care Team Providers Care Bridge Instructor Name Role Phone Hung Bay Primary Care Provider Unavailabl e Allergies Active Allergy Reactions Criticality Noted Date Comments Iodinated Contrast Media Other (see comments) 01/03/2016 Pt only has one kidney Morphine Other (see comments) Low 12/06/2019 Declines because she only has one functioning kidney Nitrofurantoin Nausea Only Low 01/10/2019 Medications aspirin 81 MG tablet Take 1 tablet by mouth 1 (one) time each day Active cloNIDine (CATAPRES) 0.2 MG tablet Take 0.2 mg by mouth at bed time 8 Active rosuvastatin (CRESTOR) 10 MG tablet Take 1 tablet by mouth 1 (one) time each day 2 Active escitalopram (LEXAPRO) 20 MG tablet Take 20 mg by mouth 1 (one) time each day 8 Active KRILL OIL PO Take 1 tablet by mouth 1 (one) time each day Active Multiple Vitamins-Mineral s (MULTIVITAMIN ADULT PO) Take 1 tablet by mouth 1 (one) time each day Active omeprazole (PriLOSEC) [address] capsule Take 1 capsule by mouth 1 (one) time each day Active tamoxifen (NOLVADEX) 20 MG chemo tablet Take 1 tablet by mouth 1 (one) time each day 5 Active ascorbic acid (VITAMIN C) 500 MG tablet Take 1 capsule by mouth 2 (two) times a day 2 Active cholecalciferol (VITAMIN D-3) 50 MCG (1999) capsule Take 1 tablet by mouth 1 (one) time each day 2 Active verapamil (CALAN) 80 MG tablet Take 80 mg by mouth 1 1/2 tablets @ noon 1 tablet @ bedtime Active ALPRAZolam (XANAX) 0.5 MG tablet Take 0.5 mg by mouth 1 (one) time each day if needed for anxiety Active Vibegron (Gemtesa) 75 MG tablet Take 75 mg by mouth 1 (one) time each day Active busPIRone (BUSPAR) 10 MG tablet Take 10 mg by mouth in the morning and 10 mg in the evening and 10 mg before bedtime. Active metoprolol succinate XL (TOPROL-XL) 100 MG 24 hr tabletIndication s:Essential hypertension TAKE 1 TABLET BY MOUTH 1 TIME EACH DAY. 90 tablet 3 5 Active furosemide (LASIX) 20 MG tablet Take 1 tablet (20 mg total) by mouth in the morning and 1 tablet (20 mg total) in the evening. 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 And seeing renal Encounters Date Type Department Care Team Description 10/09/2025 12:00 PM BALLOON TESTER Office Visit [facility] [address] [place] [address] Jurgen Maldonado MD Stage 3a chronic kidney disease (HCC) (Primary Dx); Hypertension 10/03/2025 Orders Only [facility] [address] [place] [address] Chey Neves RN 07/31/2025 Documentation Only [facility] [address] [place] [address] Jurgen Maldonado MD from Last 3 Months Immunizations Immunization Administration Dates Next Due Influenza Split 09/01/2012,09/01/2010 Influenza Split High Dose Pr eservative Free IM 08/31/2019,09/02/2018,09/14/2017,09/04,09/25/2015,08/27/2014,08/30/2013 Influenza TIV (IM) 08/13/2011,08/16/2009, 008 Pneumococcal Conjugate 13-Valent 09/25/2015,08/09 Pneumococcal Polysaccharide 10/07/2016, 9,10/07/2004 Td 11/18/2002 Tdap 07/17/2014 Zoster 04/04/2009 Family History Medical History Relation Comments Cancer Father 2 Ureter and bladd er Heart disease Father 2 Stroke Father 2 Dementia Mother 2 Relation Status Comments Father 1 Father 2 Mother 1 Alive Mother 2 Social History Tobacco Use Types Packs/Day Years Used Date Smoking Tobacco: Never Smokeless Tobacco: Never Tobacco Cessation:Counseling Given: Not Answered Alcohol Use Standard Drinks/Week Comments Yes 0 (1 standard drink = 0.6 oz pur e alcohol) Comments Unknown Sex and Gender Information Value Date Recorded Sex Assigned at Not on file Legal Sex Female 6:09 PM EDT Gender Identity Not on file Sexual Orientation Not on file Last Filed Vital Signs Vital Sign Reading Time Taken Comments Blood Pressure 102/64 07/18/2025 9:53 AM CDT Pulse 67 07/18/2025 9:53 AM CDT Temperature 36.6 C (97.9 F) 07/18/2025 9:53 AM CDT Respiratory Rate 18 01/10/2019 11:0 0 AM BALLOON TESTER Oxygen Saturation 97% 07/18/2025 9:5 3 AM CDT Inhaled Oxygen Concentration - - Weight 117 kg (257 lb) 07/18/2025 9:53 AM CDT Last weight at home. Height 162.6 cm (5' 4) 01/11/2024 11:0 8 AM BALLOON TESTER Body Mass Index 44.11 01/11/2024 11:08 AM BALLOON TESTER Plan of Treatment Upcoming Encounters Date Type Department Care Team (Late st Contact Info) Description 10/08/2026 12:00 PM BALLOON TESTER Office Visit [facility] [address] [facility] [address] [place] [address] Jurgen Maldonado MD [address] [facility] [address] [place] [address] Health Maintenance Due Date Last Done Comments Hepatitis B Vaccine (1 of 3 - Risk 3-dose series) 2006 Pneumococcal Vaccine: 50+ Years Completed 10/07/2016, 09/25/2015, 08/27/2014, Additional history exists Pneumococcal Vaccine: Peds ( 0 to 5 Years) and At-Risk Patients (6 to 49 Years) Discontinued 10/07/2016, 09/25/2015, 08/27/2014, Additional history exists Colorectal Cancer Screening: Colonoscopy Discontinued 01/29/2023 Influenza Vaccine Completed 08/20/2025, , 09/11/2023, Additional history exists Insurance [employer] MCR Adv PPO ([id number]) Care Teams Bridge Instructor Relationship Specialty Start Date End Date Hung Bay PCP - General Internal Medicine 06/09/19
--- OUTSIDE RECORDS SUMMARY | 2025-10-26 12:53 | XMS_ITS | Encounter Summary ---
Author Organization [facility] Address [address] [place] [address] Phone Care Team Providers Care Manager Aerospace Name Role Phone Hung Bay MD Primary Care Provi alejandro Haylee Montague NP Unavailable [phone] Ismael De La Cruz Primary Care Provider Nicholas Aguilera MD Unavailable Jurgen Maldonado MD Unavailable [phone] Emma Sheridan MD Unavailable Mariela Gonzalez MD Unavailable Dejan Wood DPM Unavailable [phone] Randal Hurst MD Unavailable [phone] Lauren Warren MD Unavailable [phone] Kalpana Sepulveda MD Unavailable Encounter Details Date Type Department Care Team (Late st Contact Info) Description 03/01/2018 Orders Only [facility] ProviderSiena MD [facility] [place] [address] Social History Tobacco Use Types Packs/Day Years Used Date Smoking Tobacco: Former Cigarettes 1 55 1 953 - 2008 Smokeless Tobacco: Never Alcohol Use Standard Drinks/Week Comments No 0 (1 standard drink = 0.6 oz pur e alcohol) Comments No Sex and Gender Information Value Date Recorded Sex Assigned at Not on file Legal Sex Female 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 Gender Identity Female 11/03/2019 7:26 AM BIOFUELS MANAGER Sexual Orientation Straight 12/29/2019 10 :21 AM BIOFUELS MANAGER 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 Historical Provider LAB BLOOD ORDERABLES Jeanne l Result documented in this encounter Visit Diagnoses Not on filedocumented in this encounter Care Teams Manager Aerospace Relationship Specialty Start Date End Date Hung Bay MD PCP - General 02/05/17 07/18/22 Ismael De La Cruz PA [address] [facility] [address] [place] [address] PCP - General Internal Medicine 07/19/22 [place]lee Montague [place] [address] [address] Nurse Practitioner Urology 09/29/21 04/17/24 [place] [address] [address] Consulting Physician Pain Management 12/17/23 Jurgen Maldonado MD [address] [address] [place] [address] Consulting Physician Nephrology 04/18/24 [place] [address] [place] [address] Consulting Physician Urology 04/18/24 [place] [address] [place] [address] Consulting Physician Neurology 04/18/24 Dejan Wood DPM [address] [facility] [place] [address] Consulting Physician Orthotics 04/18/24 Randal Hurst MD [address] [place] [address] Referring Physician Hematology and Oncology 04/18/24 Lauren Warren MD [address] [address], [place] [id number] Consulting Physician General Surgery 04/18/24 Kalpana Sepulveda MD [address] [place] [address] Moderate Needs Teacher Obstetrics and Gynecology 04/18/24 documented as of this encounter
[2025-10-26 13:13] VITALS: BP 109/69; PULSE 63; RESP 20; TEMP 36.7; O2SAT 95
--- NOTE | 2025-10-26 13:29 | ED.GENADULT ---
HPI - General Adult General Chief complaint: Extremity Injury, Upper Stated complaint: Fall Injury/Face and Left Wrist Time Seen by Provider: 10/26/25 13:30 Source: patient, RN notes reviewed and old records reviewed Mode of arrival: ambulatory Limitations: no limitations History of Present Illness HPI narrative: 80-year-old female presents to the [facility] 2 days post fall and wanting evaluation for her left hand and wrist only. Patient states that she has not wanting to be evaluated for the bruising to her face. States that she is only wanting to be evaluated for her left wrist and hand pain and swelling. Patient states that she stood up thinks she tripped over her own 2 feet, face planted and somehow injured her left hand and wrist which is now bruised and swollen. Tenderness throughout. Applied a Velcro wrist splint at home. Onset (ago): day(s) (2) Treatments prior to arrival: splint Related Data Home Medications ?Medication ?Instructions ?Recorded ?Confirmed ?Last Taken ?Type clonidine HCl 0.2 mg tablet 0.2 mg PO BID 07/03/20 06/05/24 Unknown History escitalopram oxalate 20 mg tablet 20 mg PO DAILY 07/03/20 06/05/24 Unknown History metoprolol succinate 100 mg 100 mg PO DAILY 07/03/20 06/05/24 Unknown History tablet,extended release 24 hr omeprazole 40 mg capsule,delayed 40 mg PO DAILY 07/03/20 06/05/24 Unknown History release rosuvastatin 20 mg tablet 20 mg PO DAILY 07/03/20 06/05/24 Unknown History tamoxifen 20 mg tablet 20 mg PO DAILY 07/03/20 06/05/24 Unknown History verapamil 80 mg tablet 80 mg PO DIRECTED 07/03/20 06/05/24 Unknown History ascorbate calcium (vitamin C) 500 500 mg PO DAILY 09/11/22 06/05/24 Unknown History mg tablet aspirin 81 mg tablet,delayed 81 mg PO DAILY 09/11/22 06/05/24 Unknown History release (Adult Aspirin Regimen) krill 300 mg-omega-3 90 mg-dha 27 cap PO 09/11/22 06/05/24 Unknown History mg-epa 45 [id number] capsule fluocinonide 0.05 % topical topical 10/26/25 Unknown History solution furosemide 20 mg tablet mg 10/26/25 Unknown History oxycodone-acetaminophen 7.5 mg-325 tablet 10/26/25 Unknown History mg tablet Allergies Allergy/AdvReac Type Severity Reaction Status Date / Time morphine AdvReac Unknown Other Verified 10/26/25 13:10 NSAIDS (Non-Steroidal AdvReac Unknown Other Verified 10/26/25 13:10 Anti-Inflamma Contrast Media AdvReac Unknown Unknown Uncoded 03/04/23 14:31 Review of Systems Review of Systems: All systems reviewed & are unremarkable except as noted in HPI and below Constitutional: Constitutional: Reports no additional constitutional complaints ENT: Reports system reviewed and no additional complaints, except as documented Comments: bruising to the Bilateral cheeks,, forehead and nose. Cardiovascular: Cardiovascular: Reports no additional cardiovascular complaints, Denies chest pain and Denies dyspnea Respiratory: Respiratory: Reports no additional respiratory complaints, Denies chest congestion, Denies cough and Denies dyspnea Musculoskeletal: Musculoskeletal: Reports as per HPI, Reports arthralgias and Reports joint swelling Integumentary/Breasts: Skin/Breast: Reports system reviewed and no additional complaints, except as docu PMFSH Past Medical History Medical History Arthritis of right hip Anxiety Arthritis GERD (gastroesophageal reflux disease) Diverticulitis Sleep apnea Mitral valve prolapse Hypertension Hypercholesterolemia Surgical History Surgical History H/O tubal ligation History of total left knee replacement Family History Family History Other Family history of arthritis Family history of malignant neoplasm of urinary bladder Social History Social History Smoking status: Never smoker Alcohol intake: never Lack of Transportation: No Lack of Food: Never True Current Housing: I Have Housing Concerned About Future Housing: No Difficulty Paying Gas/Electric Bills: No Difficulty Paying for Meds: No Currently Unemployed: No Education: Associate Degree Difficulty w/ Childcare or Family Care: No Comments At the time of my signature, I reviewed and agree with the nursing past medical, surgical, social, and family history. There is no relevant family history pertinent to the patient complaint. Exam Const: General: cooperative, well developed, alert, ill appearing chronically and well nourished Nutritional Appearance: well nourished and obese Orientation/consciousness: patient oriented x3 Limitations: no limitations HENMT: Head: normal to inspection Other: bruising to face, cheeks, forehead Eyes: General: appearance normal, both eyes and all related structures Alignment and Position: alignment normal Neck: Neck: normal visual inspection, full ROM, no lymphadenopathy and no meningeal signs Chest: Chest palpation & inspection: normal inspection of the chest Resp: Effort & Inspection: normal respiratory effort and able to speak in complete sentences Cardio: Rate: regular rate Skin: General skin exam: no rashes or lesions noted Neuro: General: patient oriented x3, moves all extremities and no meningeal signs Cognition (Neuro): normal cognition Speech: normal speech Extrem: General: normal to inspection, full ROM and capillary refill normal Left upper extremity: wrist tenderness of the distal radius, of the distal ulna, of the anatomic snuffbox, of the dorsal wrist and of the volar wrist, swelling, abnormal ROM pain with active ROM, ecchymosis, normal vascular exam and radial pulse present; no abrasions, no lacerations, no foreign bodies and no penetrating wound and hand normal capillary refill, tenderness of the dorsal hand and of the palm, vascular exam radial pulse present and normal capillary refill, swelling and ecchymosis Psych: Appearance: grossly normal and well kempt Mental Status: mental status grossly normal Speech and movement: Normal speech and movement present and Clear speech present Affect: normal affect Attitude: cooperative Course Course Level of Care: Express Care Visit Vital Signs Vital signs: Vital Signs Temperature 98.1 F 10/26/25 13:13 Pulse Rate 63 10/26/25 13:13 Respiratory Rate 20 10/26/25 13:13 Blood Pressure 109/69 10/26/25 13:13 Pulse Oximetry 95 10/26/25 13:13 Oxygen Delivery Room Air 10/26/25 13:13 Temperature 98.1 F 10/26/25 13:13 Pulse Rate 63 10/26/25 13:13 Respiratory Rate 20 10/26/25 13:13 Blood Pressure 109/69 10/26/25 13:13 Pulse Oximetry 95 10/26/25 13:13 Oxygen Delivery Room Air 10/26/25 13:13 reviewed MDM MDM Narrative Medical decision making narrative: patient sitting in exam room. Patient is in the wheelchair, presents only for her wrist and hand pain, swelling, bruising. Patient is not wanting evaluation of the facial trauma. Discussed with patient that she would need to be evaluated if she has concern for fracture, develops blurry vision, change in vision, headache, dizziness. discussed the importance of following up for the possible scaphoid fracture. Patient states that she will most likely see her doctor at [facility]. X-ray shows possible scaphoid fracture, put in a thumb spica, sling. Patient has oxycodone at home ready. Patient is appropriate for outpatient treatment with close follow-up Discharge instructions reviewed with patient, as well as provided in writing per nursing staff. The instructions also include specific and strict return/GO TO THE ER as well as f/u information. All questions have been answered, and the patient deny any further questions with discharge and discharge plan. Some parts of this dictation were generated by voice recognition software and may contain typographical and/or grammatical inaccuracies. Differential Diagnosis Differential Diagnosis: Differential diagnostic considerations for upper extremity injury include sprain/strain of wrist, fracture of wrist, finger sprain, dislocation of finger, fracture of hand, dislocation of shoulder, fracture of humerus, fracture of clavicle, laceration, tendon injury, carpal tunnel syndrome.? Imaging Data Radiologist's impression: ITS Impressions Wrist X-Ray 10/26/25 14:04 Impression: Mid scaphoid fracture. CT suggested Hand X-Ray 10/26/25 14:17 Impression: No acute fracture or malalignment. Discharge Plan Discharge Clinical Impression: Fracture of scaphoid, Fall Patient Disposition: Home Condition: Stable Instructions: How to Use a Sling (ED), Splint Care (ED), Scaphoid Fracture (ED) Additional Instructions: your x-ray shows a probability of a scaphoid fracture which is a small bone in the hand/ wrist. Wear the splint until you see the orthopedist. For new or worsening symptoms such as severe headache, blurry vision, change in vision or uncontrolled pain please go directly to the nearest emergency room Patient Language: Sammarinese Prescriptions: No Action metoprolol succinate 100 mg tablet extended release 24 hr 100 mg PO DAILY omeprazole 40 mg capsule,delayed release(DR/EC) 40 mg PO DAILY clonidine HCl 0.2 mg tablet 0.2 mg PO BID verapamil 80 mg tablet 80 mg PO DIRECTED Patient Comments: 1 2 tab at 1300 and 1 tab at hs tamoxifen 20 mg tablet 20 mg PO DAILY escitalopram oxalate 20 mg tablet 20 mg PO DAILY rosuvastatin 20 mg tablet 20 mg PO DAILY furosemide 20 mg tablet fluocinonide 0.05 % solution TOPICAL oxycodone-acetaminophen 7.5-325 mg tablet aspirin [Adult Aspirin Regimen] 81 mg tablet,delayed release (DR/EC) 81 mg PO DAILY ascorbate calcium (vitamin C) 500 mg tablet 500 mg PO DAILY [id number] mg capsule PO Follow-up/Referrals: Tobi Rowan MD [Physician, Plastic Surgery] PHYSICIAN NOT ON STAFF,NONSTAFF [Non-Staff] Robel Almanzar MD [Physician, Orthopedics] Time of Disposition: 14:22
== END 2025-10-26 14:49 | disposition home or self-care (01) ==
PROVIDERS: Emergency Provider Nurse Practitioner
DX: S62.002A Unspecified fracture of navicular [scaphoid] bone of left wrist, initial encounter for closed fracture (principal); W19.XXXA Unspecified fall, initial encounter; I10 Essential (primary) hypertension; E78.00 Pure hypercholesterolemia, unspecified; I34.1 Nonrheumatic mitral (valve) prolapse; K21.9 Gastro-esophageal reflux disease without esophagitis; M19.90 Unspecified osteoarthritis, unspecified site; M16.11 Unilateral primary osteoarthritis, right hip; Z96.652 Presence of left artificial knee joint; Z79.82 Long term (current) use of aspirin; F41.9 Anxiety disorder, unspecified
CPT/HCPCS: 29125; 73110; 73130; 99214; A4565; G0463